=== PATIENT | female | born 1970 | race Caucasian/White ===

== ENCOUNTER 2018-12-26 15:22 | Outpatient (REF) | payer MEDICAID, SELFPAY ==
[2018-12-26 19:33] LABS: HCT 39.3 % (36.0-46.0); HGB 13.4 g/dL (12.0-15.5); Mean Corp. HGB Concentration 34.1 g/dL (32.0-36.0); Mean Corpuscular Hemoglobin 30.6 pg (27.0-33.0); Mean Corpuscular Volume 89.7 fL (80-95); Platelet Count 278 x1000/uL (130-400); RBC 4.38 m/cumm (4.00-5.20); White Blood Cell Count 11.14 k/cumm (4.4-10.8)
[2018-12-26 19:34] LABS: C-Reactive Protein 1.94 mg/dL (0.0-0.3); TSH 1.91 uIU/mL (0.36-3.74)
[2018-12-26 20:17] LABS: ESR 36 mm/hr (0-20)
[2018-12-30 13:01] LABS: Lyme Ab w Rflx to Lyme Confirm Negative
[2018-12-30 15:29] LABS: ANA Interpretation Negative (NEGAT)
== END 2018-12-26 15:42 ==
LOC: NCHCN 15:22
PROVIDERS: PCP Internal Medicine; Visit Provider Internal Medicine
DX: M79.7 Fibromyalgia (principal)
CPT/HCPCS: 85027; 85652; 84443; 86038; 86140; 86618

== ENCOUNTER 2020-02-18 17:58 | Outpatient (REF) | payer MEDICAID, SELFPAY ==
[2020-02-18 21:27] LABS: Anion Gap 6.9 mmol/L (3-11); BUN 6 mg/dL (7-18); CO2 29.1 mmol/L (21.0-32.0); CREATININE 0.64 mg/dL (0.55-1.02); Calcium 8.7 mg/dL (8.5-10.1); Chloride 103 mmol/L (98-107); Glucose 97 mg/dL (74-106); Sodium 139 mmol/L (136-145); TSH 2.36 uIU/mL (0.36-3.74)
== END 2020-02-18 18:18 ==
LOC: NCHCN 17:58
PROVIDERS: PCP Internal Medicine; Visit Provider Internal Medicine
DX: M79.7 Fibromyalgia (principal); F43.9 Reaction to severe stress, unspecified
CPT/HCPCS: 80048; 84443

== ENCOUNTER 2020-05-10 15:34 | Outpatient (REF) | payer MEDICAID, SELFPAY ==
[2020-05-12 12:26] LABS: COVID-19 RT-PCR UVMMC Result Positive (Negative)
== END 2020-05-10 15:35 | disposition home or self-care (01) ==
LOC: NCHCN 15:34
PROVIDERS: PCP Internal Medicine; Visit Provider Family Medicine
DX: Z20.822 Contact with and (suspected) exposure to COVID-19 (principal); R05 Cough; R07.89 Other chest pain
CPT/HCPCS: U0003

== ENCOUNTER 2021-02-16 18:45 | Outpatient (REF) | payer MEDICAID, SELFPAY ==
[2021-02-16 20:30] LABS: HCT 38.7 % (36.0-46.0); HGB 12.9 g/dL (11.2-15.7); MCH 30.4 pg (27.0-33.0); MCHC 33.3 % (32.0-36.0); MCV 91.3 fL (80-95); MPV 8.9 fL (8.0-11.0); Platelet Count 310 10^3/uL (130-400); RBC 4.24 10^6/uL (3.93-5.22); RDW 13.6 % (11.7-14.6); WBC 15.23 10^3/uL (4.4-10.8)
[2021-02-16 20:35] LABS: Anion Gap 7.9 mmol/L (3-11); BUN 8 mg/dL (7-18); CO2 29.1 mmol/L (21.0-32.0); CREATININE 0.6 mg/dL (0.55-1.02); Calcium 8.5 mg/dL (8.5-10.1); Chloride 101 mmol/L (98-107); Glucose 84 mg/dL (74-106); Potassium 3.7 mmol/L (3.5-5.1); Sodium 138 mmol/L (136-145)
== END 2021-02-16 18:46 | disposition home or self-care (01) ==
LOC: NCHCN 18:45
PROVIDERS: PCP Internal Medicine; Visit Provider Internal Medicine
DX: M54.9 Dorsalgia, unspecified (principal); F17.210 Nicotine dependence, cigarettes, uncomplicated
CPT/HCPCS: 80048; 85027

== ENCOUNTER 2021-04-21 16:14 | Outpatient (REF) | payer MEDICAID, SELFPAY ==
[2021-04-21 19:38] LABS: Bilirubin Negative (Negative); Blood Negative (Negative); Clarity Clear (Clear); Glucose Negative (Negative); Ketones Negative (Negative); Leukocyte Esterase Negative (Negative); Nitrite Negative (Negative); Specific Gravity 1.025 (1.005-1.025); Urobilinogen 0.2 EU/dL (Up TO 0.2)
== END 2021-04-21 16:15 | disposition home or self-care (01) ==
LOC: NCHCN 16:14
PROVIDERS: PCP Internal Medicine; Visit Provider Nurse Practitioner Family
DX: R31.9 Hematuria, unspecified (principal)
CPT/HCPCS: 81003

== ENCOUNTER 2021-06-15 18:34 | Outpatient (REF) | payer MEDICAID, SELFPAY ==
[2021-06-15 22:00] LABS: Calculated LDL 125 mg/dL (<100); Cholesterol 204 mg/dL (<200); HDL Cholesterol 60 mg/dL (40-60); Triglyceride 97 mg/dL (<150)
== END 2021-06-15 18:35 | disposition home or self-care (01) ==
LOC: NCHCN 18:34
PROVIDERS: PCP Internal Medicine; Visit Provider Internal Medicine
DX: R03.0 Elevated blood-pressure reading, without diagnosis of hypertension (principal); Z13.220 Encounter for screening for lipoid disorders; Z00.00 Encounter for general adult medical examination without abnormal findings
CPT/HCPCS: 80061

== ENCOUNTER 2021-06-25 08:18 | Emergency (ER) | payer MEDICAID, SELFPAY ==
[2021-06-25 08:25] VITALS: BP 143/92; PULSE 90; RESP 18; TEMP 36.7; O2SAT 96
--- NOTE | 2021-06-25 08:30 | DI.RAD_ITS ---
Exam(s) XR RIBS LT PA CHEST 3V EXAM: XR RIBS LT PA CHEST 3V CLINICAL HISTORY: pulled down by dog, left anteriolateral rib pain. TECHNIQUE: 2D digital imaging was performed. COMPARISON: No exams were available for comparison FINDINGS: Two views left rib cage: No left rib fracture seen. No pneumothorax. Ipsilateral left clavicle appe ars unremarkable. Chest single view: No acute pulmonary findings. No pneumothorax. IMPRESSION: No acute pulmonary findings. No obvious left rib fractures. DATA REPOSITORY: RADIATION DOSE DELIVERED:
--- NOTE | 2021-06-25 08:40 | W.EDPROG ---
Medical Decision Making 51-year-old female current smoker, otherwise healthy, was pulled down by a large dog while walking them on a leash several days ago, fell on her left side pain to her left anterior lateral chest feels as if she is taking short shallow breaths endorses the pain has gotten worse over the past days. Took hydrocodone this morning. I did again I started progress Discharge Plan Discharge Details Chief Complaint: Chest/Rib Primary Care Provider: Marcel Richardson ED Provider: Darius Freeman Home Meds and New Rx's Prescriptions: No Action hydrocodone-acetaminophen 5-325 mg Tablet 1 tab PO BID PRN0RF gabapentin 300 mg Capsule 900 mg PO TID 0RF albuterol sulfate 90 mcg/actuation Hfa Aerosol Inhaler 2 puff INHALATION QID PRN0RF
--- NOTE | 2021-06-25 08:43 | ED.GENADUL_ITS ---
Discharge Plan Disposition Patient Disposition: HOME Condition: Improving Discharge Details Clinical Impression: Contusion of rib Primary Care Provider: Marcel Richardson ED Provider: Darius Freeman Home Meds and New Rx's Prescriptions: New cyclobenzaprine 5 mg tablet 5 mg PO BID PRN (Reason: muscle spasm) Qty: 10 0RF lidocaine [Lidoderm] 5 % adhesive patch,medicated 1 patch topical DAILY Qty: 1 0RF Rx Instructions: leave on most painful area for up to 12 hrs No Action hydrocodone-acetaminophen 5-325 mg Tablet 1 tab PO BID PRN0RF gabapentin 300 mg Capsule 900 mg PO TID 0RF albuterol sulfate 90 mcg/actuation Hfa Aerosol Inhaler 2 puff INHALATION QID PRN0RF Discharge Instructions Instructions: Rib Contusion (ED) Additional Instructions: Please continue to use ibuprofen and Tylenol as needed at home. Please use incentive spirometer as instructed. Please return to the emergency department for any worsening symptoms such as shortness of breath change in color fevers worsening cough worsening pain or other abnormal symptoms. Medical Decision Making 51-year-old female presents several days after being pulled to the ground by a large dog, fell on her left chest wall, persistent pain and shallow breathing, afebrile nontoxic not hypoxic, speaking full sentences lungs clear bilaterally, faint area of ecchymosis around likely fifth/6th ribs anterior lateral chest wall of left thorax, no crepitus no deformity no evidence of flail chest, abdomen soft nontender nondistended, neurologically intact, oxygenating normally hemodynamically stable. High clinical suspicion for rib contusion versus rib fracture versus less likely pneumothorax versus less likely hemothorax versus low suspicion for developing pneumonia. Screening x-ray/rib series, analgesia, close reassessment likely to be given some incentive spirometer home care instructions and return precautions 9:35 Patient resting comfortably no acute distress no hypoxia hemodynamically stable. X-ray read as negative for pulmonary pathology or rib fracture; upon my review of the image it seems that there is more opacification of the left hemithorax than the right consider overlying breast tissue versus atelectasis versus pulmonary contusion, reviewed this with patient and offered CT scan for further delineation of any underlying pulmonary pathology. We discussed the risks and benefits of further imaging and evaluation and given patient is stable not hypoxic without respiratory distress she is decided to hold off on CT scan and will monitor her symptoms at home, continue with pain control, return precautions for fever shortness of breath change in color tachypnea worsening pain or other abnormal symptoms. HPI General Date/Time Provider Initiated Documentation: 06/25/21 08:38 . HPI Narrative: 51-year-old female current smoker otherwise healthy presents several days after being pulled down by a large dog while walking it on the leash. Fell on her left side endorses pain to her anterior lateral chest wall. Endorses that she is taking shallow breaths and the pain has gotten worse and sharp over the last couple of days. Took a hydrocodone this morning that is taken the edge off. Related Data Home Medications Medication Instructions Recorded Confirmed albuterol sulfate 90 mcg/actuation 2 puff INHALATION QID PRN 06/25/21 06/25/21 aerosol inhaler cyclobenzaprine 5 mg tablet 5 mg PO BID PRN #10 tab 06/25/21 gabapentin 300 mg capsule 900 mg PO TID 06/25/21 06/25/21 hydrocodone 5 mg-acetaminophen 325 1 tab PO BID PRN 06/25/21 06/25/21 mg tablet lidocaine 5 % topical patch 1 patch TOPICAL DAILY #1 ea 06/25/21 (Lidoderm) Previous Rx's Medication Instructions Recorded cyclobenzaprine 5 mg tablet 5 mg PO BID PRN #10 tab 06/25/21 lidocaine 5 % topical patch 1 patch TOPICAL DAILY #1 ea 06/25/21 (Lidoderm) Allergies Allergy/AdvReac Type Severity Reaction Status Date / Time No Known Allergies Allergy Unverified 06/25/21 08:21 General Stated Complaint: Chest/Rib KING: 3 Review of Systems Narrative: Review of Systems Constitutional: negative Eyes: negative ENT: negative Cardiovascular: negative Respiratory: negative Gastrointestinal: negative : negative Musculoskeletal: Chest wall pain Skin: negative Neurologic: negative Psych: negative PFSH All Active Problems (Updated 06/25/21 @ 09:37 by Darius Freeman MD) Contusion of rib (Acute) Social History Smoking/Tobacco Use Status: Current every day Tobacco Type: cigarettes Smoking risk assessment performed?: Yes Alcohol Intake: never Drug use: Never Do you feel safe at home: Yes Do you feel safe in your relationship?: Yes Exam Narrative Exam Narrative: Physical Examination General: alert, awake, cooperative, resting comfortably, no acute distress HEENT: normocephalic, atraumatic; PERRL, EOM intact, conjunctiva normal; no nasal discharge; moist mucous membranes, oral and pharyngeal mucosa normal, tolerating secretions Neck: supple, trachea midline; full ROM Chest: normal to inspection, no deformity, no crepitus, does have faint area of ecchymosis anterior lateral chest wall around area of fifth/sixth rib Respiratory: normal respiratory effort, speaking in full sentences, clear to auscultation, no wheezing, rales or rhonchi Cardiac: regular rate, regular rhythm, S1S2 intact, no murmurs rubs or gallops GI: abdomen soft, non-tender, non-distended; no palpable mass or hepatosplenomegaly Skin: no lesions, rashes or trauma appreciated Neuro: AAOx3, normal speech, moving all extremities Psych: Appropriate mood and affect Course Vital Signs Vital signs: Vital Signs Temperature 36.7 C 06/25/21 08:25 Pulse 90 06/25/21 08:25 Respiratory Rate 18 06/25/21 08:25 Blood Pressure 143/92 H 06/25/21 08:25 Pulse Oximetry 96 06/25/21 08:25 Temperature 36.7 C 06/25/21 08:25 Temperature Source Temporal Artery Scan 06/25/21 08:25 Pulse 90 06/25/21 08:25 Respiratory Rate 18 06/25/21 08:25 Respiratory Effort Non-Labored 06/25/21 08:29 Respiratory Depth Normal 06/25/21 08:29 Respiratory Pattern Normal 06/25/21 08:29 Blood Pressure 143/92 H 06/25/21 08:25 Blood Pressure Position Sitting 06/25/21 08:25 Pulse Oximetry 96 06/25/21 08:25 Oxygen Delivery Method Room Air 06/25/21 08:25 Oxygen Flow Rate 0 06/25/21 08:25 Pain Level 4 06/25/21 08:29
[2021-06-25] MEDS: Ketorolac 15 MG/ML VIAL IM (08:44)
[2021-06-25] MEDS: Lidocaine 5% Patch 1 PATCH TP (08:48)
--- NOTE | 2021-06-25 09:20 | DI.VRAD_ITS ---
PROCEDURE INFORMATION: Exam: XR Left Ribs with PA Chest Exam date and time: 06/25/2021 8:53 AM Age: 51 years old Clinical indication: Injury or trauma; Other: Pulled down by dog, left anteriolateral rib pain; Rib area, left side; Blunt trauma TECHNIQUE: Imaging protocol: XR Left ribs with PA chest. Views: 3 views COMPARISON: No relevant prior studies available. FINDINGS: Lungs: Unremarkable. No consolidation. Pleural spaces: Unremarkable. No pleural effusion. No pneumothorax. Heart/Mediastinum: Unremarkable. No cardiomegaly. Bones/joints: Unremarkable. IMPRESSION: No acute findings. Dictated and Authenticated by: Howard Cazares MD. Ordering:SUMA Mccoy MD
[2021-06-25 09:53] VITALS: PULSE 83; RESP 16; TEMP 36.5; O2SAT 96
== END 2021-06-25 09:56 | disposition home or self-care (01) ==
PROVIDERS: Emergency Provider Emergency Medicine; PCP Internal Medicine
DX: S20.212A Contusion of left front wall of thorax, initial encounter (principal); W18.39XA Other fall on same level, initial encounter
CPT/HCPCS: 71101; 96372; 99284; 99283; J1885

== ENCOUNTER 2021-06-28 10:31 | Emergency (ER) | payer MEDICAID, SELFPAY ==
[2021-06-28 10:39] VITALS: BP 119/86; PULSE 92; RESP 18; TEMP 37.3; O2SAT 96
--- NOTE | 2021-06-28 10:59 | ED.GENADUL_ITS ---
Discharge Plan Disposition Patient Disposition: HOME Condition: Stable Discharge Details Clinical Impression: Contusion of rib, Compression fracture of thoracic vertebra Primary Care Provider: Marcel Richardson ED Provider: Aida Sanz Home Meds and New Rx's Prescriptions: New gabapentin [Neurontin] 100 mg capsule 100 mg PO TID Qty: 21 0RF Continued hydrocodone-acetaminophen 5-325 mg Tablet 1 tab PO BID PRN0RF gabapentin 300 mg Capsule 900 mg PO TID 0RF albuterol sulfate 90 mcg/actuation Hfa Aerosol Inhaler 2 puff INHALATION QID PRN0RF cyclobenzaprine 5 mg tablet 5 mg PO BID PRN (Reason: muscle spasm) Qty: 10 0RF lidocaine [Lidoderm] 5 % adhesive patch,medicated 1 patch topical DAILY Qty: 1 0RF Rx Instructions: leave on most painful area for up to 12 hrs Discharge Instructions Instructions: Rib Contusion (ED) Additional Instructions: Please follow-up with your primary care physician regarding taking 2 tablets of your Vicodin as needed Continue to take deep breaths so you do not develop pneumonia You may take the Neurontin if your pain is not controlled with your Vicodin, 1 tab 3 times daily to start Recommend decreasing activity until your symptoms improve Let physical therapy know you have a fracture to your T8 vertebra Return earlier should you have new or worsening complaints Referrals: Marcel Ricahrdson [Primary Care Provider] - Discharge Data Discharge Date/Time-TO BE ENTERED AT DEPARTURE: 06/28/21 13:27 Medical Decision Making Patient appears well, her CT shows evidence of T8 fracture compression No evidence of pneumothorax or pneumonia Specifically no evidence of rib fracture As patient was not tender over her's needle today, I did not order CT of her abdomen and pelvis She is ambulatory with steady gait Returning she is reporting discomfort but in no acute distress on examination She is oxygenating well and I think the patient is stable for discharge home She is given specific return precautions will follow up her PCP in the outpatient setting She will continue to use her spirometer and take ibuprofen and Tylenol Medical Records Medical records reviewed: Yes I reviewed the patient's medical records. Lab Data Lab results reviewed: Yes I reviewed the patient's lab results. ECG Data Prior ECG tracings: available for review HPI General Date/Time Provider Initiated Documentation: 06/28/21 10:34 . HPI Narrative: This 51-year-old female presents with report of left-sided chest wall pain. Patient states that approximately 8 days ago she was training her dog when he did, she flew in the air and landed on her left side. She denies any head injury. She states this morning her pain was worse and she was short of breath. She denies any fever or chills. Denies any abdominal pain. Denies any hemoptysis. Subjective fever this morning. Denies any calf pain or swelling. Denies history of coagulopathy. Took Vicodin prior to arrival reportedly. Related Data Home Medications Medication Instructions Recorded Confirmed albuterol sulfate 90 mcg/actuation 2 puff INHALATION QID PRN 06/25/21 06/28/21 aerosol inhaler cyclobenzaprine 5 mg tablet 5 mg PO BID PRN #10 tab 06/25/21 06/28/21 gabapentin 300 mg capsule 900 mg PO TID 06/25/21 06/28/21 hydrocodone 5 mg-acetaminophen 325 1 tab PO BID PRN 06/25/21 06/28/21 mg tablet lidocaine 5 % topical patch 1 patch TOPICAL DAILY #1 ea 06/25/21 06/28/21 (Lidoderm) gabapentin 100 mg capsule 100 mg PO TID #21 cap 06/28/21 (Neurontin) Previous Rx's Medication Instructions Recorded cyclobenzaprine 5 mg tablet 5 mg PO BID PRN #10 tab 06/25/21 lidocaine 5 % topical patch 1 patch TOPICAL DAILY #1 ea 06/25/21 (Lidoderm) gabapentin 100 mg capsule 100 mg PO TID #21 cap 06/28/21 (Neurontin) Allergies Allergy/AdvReac Type Severity Reaction Status Date / Time No Known Allergies Allergy Unverified 06/28/21 10:52 General Stated Complaint: Orthopedic KING: 3 Review of Systems All systems reviewed & are unremarkable except as noted in HPI and below PFSH All Active Problems (Updated 06/28/21 @ 13:27 by KRYSTAL Young) Contusion of rib (Acute) Compression fracture of thoracic vertebra (Acute) Medical History (Updated 06/28/21 @ 13:27 by KRYSTAL Young) Arthritis Surgical History (Updated 06/28/21 @ 10:48 by Kelly Butler RN) History of section History of cholecystectomy Social History Smoking/Tobacco Use Status: Current every day Tobacco Type: cigarettes Smoking risk assessment performed?: Yes Alcohol Intake: never Drug use: Never Do you feel safe at home: Yes Do you feel safe in your relationship?: Yes Exam Const General: cooperative, comfortable and no acute distress HENMT Head: normal to inspection Eyes Pupils: PERRL Neck Other: Nontender cervical spine Chest Other: Palpable left-sided tenderness, no crepitus or visible signs of trauma Resp Effort & Inspection: normal respiratory effort Auscultation: clear to auscultation bilaterally Cardio Rate: regular rate Rhythm: regular rhythm Other: Distal pulses intact GI Inspection: normal to inspection Other: Specifically no tenderness over left upper quadrant or left flank or visible evidence of trauma Back/Spine/Pelvis Other: Midline thoracic tenderness without visible evidence of trauma Skin General skin exam: no rashes or lesions noted Neuro General: patient alert and patient oriented x3 Cranial Nerves: CN's II-XI intact bilaterally Speech: speech normal Gait: normal gait Other: Strength and sensation intact distally, distal pulses intact, DTRs intact to bilateral lower and upper extremities Extrem General: normal to inspection Course Vital Signs Vital signs: Vital Signs Temperature 37.3 C 06/28/21 10:39 Pulse 92 H 06/28/21 10:39 Respiratory Rate 18 06/28/21 10:39 Blood Pressure 119/86 06/28/21 10:39 Pulse Oximetry 96 06/28/21 10:39 Temperature 37.3 C 06/28/21 10:39 Temperature Source Temporal Artery Scan 06/28/21 10:39 Pulse 92 H 06/28/21 10:39 Respiratory Rate 18 06/28/21 10:39 Respiratory Effort Non-Labored 06/28/21 10:46 Blood Pressure 119/86 06/28/21 10:39 Blood Pressure Position Sitting 06/28/21 10:39 Pulse Oximetry 96 06/28/21 10:39 Oxygen Delivery Method Room Air 06/28/21 10:39 Oxygen Flow Rate 0 06/28/21 10:39
--- NOTE | 2021-06-28 12:22 | DI.CT_ITS ---
Exam(s) CT CHEST WO EXAM: CT CHEST WO CLINICAL HISTORY: left chest pain post trauma. TECHNIQUE: Multi planar reconstructions were performed. CONTRAST MATERIAL: None COMPARISON: CR,XR XR RIBS LT PA CHEST 3V from 06/25/2021 FINDINGS: CHEST: There are bilateral retroglandular saline breast implants. The right implant is collapsed. The left breast implant appears intact LUNGS: There are no infiltrates nor pleural effusions. No lung contusion. No pneumothorax. No omin ous pulmonary nodules. MEDIASTINUM: No evidence of mediastinal hematoma. No obvious hilar nor mediastinal adenopathy. No a xillary adenopathy. CARDIAC: Heart size is normal. There is no pericardial effusion.Caliber of the thoracic aorta is wit hin normal limits. VISUALIZED UPPER ABDOMEN:Visualized liver and spleen appear unremarkable no significant adrenal tammy s. OSSEOUS: There is compression fracture of T8 vertebral body, approximately 20 percent height loss at superior endplate level. No clavicle fractures. No rib fractures. No scapular fractures. No harp al fracture.. IMPRESSION: 1. There is a compression fracture of T8 vertebral body, approximately 20 percent. Correlation with site of tenderness is recommended. There are no rib fractures identified. No sternal fractures. No clavicular fractures. No lung contusion. No pleural effusions. No pneumothorax. 2. Right breast implant is collapsed, possibly chronic. The left breast implant appears intact. Imp lants are saline/retro glandular. RADIATION DOSE DELIVERED: 394.22mGy.cm Total DLP DATA REPOSITORY: All CT scans at this facility are submitted to the National Radiology Data Registry (NRDR) Dose Index Registry (DIR) with the [employer] ([employer]). RADIATION OPTIMIZATION: All CT scans at this facility use at least one of these dose optimization te chniques: automated exposure control; mA and/or kV adjustment per patient size (includes targeted exa ms where dose is matched to clinical indication); or iterative reconstruction.
[2021-06-28 14:17] VITALS: BP 128/86; PULSE 90; RESP 18; TEMP 36.6; O2SAT 91
== END 2021-06-28 13:27 | disposition home or self-care (01) ==
PROVIDERS: Emergency Provider Physician Assistant; PCP Internal Medicine
DX: S20.212A Contusion of left front wall of thorax, initial encounter (principal); S22.060A Wedge compression fracture of T7-T8 vertebra, initial encounter for closed fracture; W18.39XA Other fall on same level, initial encounter
CPT/HCPCS: 71250; 99284

== ENCOUNTER 2022-01-23 17:48 | Outpatient (REF) | payer MEDICAID, SELFPAY ==
[2022-01-23 20:00] LABS: HCT 37.3 % (36.0-46.0); HGB 12.1 g/dL (11.2-15.7); MCH 29.2 pg (27.0-33.0); MCHC 32.4 % (32.0-36.0); MCV 90 fL (80-95); MPV 9.5 fL (8.0-11.0); Platelet Count 319 10^3/uL (130-400); RBC 4.14 10^6/uL (3.93-5.22); RDW 12.7 % (11.7-14.6); WBC 10.88 10^3/uL (4.4-10.8)
[2022-01-23 20:05] LABS: Anion Gap 5.2 mmol/L (3-11); BUN 8 mg/dL (7-18); CO2 31.8 mmol/L (21.0-32.0); CREATININE 0.6 mg/dL (0.55-1.02); Calcium 9.2 mg/dL (8.5-10.1); Chloride 100 mmol/L (98-107); Estimated GFR 107.93 (mL/min/1.73m2); Glucose 92 mg/dL (74-106); Potassium 4.3 mmol/L (3.5-5.1); Sodium 137 mmol/L (136-145)
== END 2022-01-23 17:49 | disposition home or self-care (01) ==
LOC: NCHCN 17:48
PROVIDERS: PCP Internal Medicine; Visit Provider Internal Medicine
DX: R03.0 Elevated blood-pressure reading, without diagnosis of hypertension (principal); F17.210 Nicotine dependence, cigarettes, uncomplicated
CPT/HCPCS: 80048; 85027

== ENCOUNTER 2023-08-19 12:56 | Emergency (ER) | payer MEDICAID, SELFPAY ==
[2023-08-19 12:58] VITALS: BP 134/88; PULSE 101; RESP 12; TEMP 36.8; O2SAT 95
--- NOTE | 2023-08-19 13:15 | DI.RAD_ITS ---
Exam(s) XR THORACIC SPINE COMPLETE EXAM: XR THORACIC SPINE COMPLETE CLINICAL HISTORY: back pain post cold. TECHNIQUE: 2D digital imaging was performed. COMPARISON: CR,XR XR RIBS LT PA CHEST 3V from 06/25/[address] CHEST WO from 06/28/2021 FINDINGS: Two views. There is a nonacute appearing compression fracture of the T8 vertebral body, seen on prior images of 06/25/[address] scan of 06/28/2021. Height loss appears stable. No other fractures identified. IMPRESSION: Non recent T8 compression fracture. No acute fractures evident DATA REPOSITORY: RADIATION DOSE DELIVERED:
--- NOTE | 2023-08-19 13:15 | DI.RAD_ITS ---
Exam(s) XR RIBS RT W PA LAT CHEST EXAM: XR RIBS RT W PA LAT CHEST CLINICAL HISTORY: back and right lateral chest pain, recent cold TECHNIQUE: 2D digital imaging was performed. COMPARISON: CR,XR XR RIBS LT PA CHEST 3V from 06/25/2021 FINDINGS: RIBS 3 VIEWS-right There are no obvious acute rib fractures evident. No lytic rib lesions identified. CXR- 2 VIEWS: No lung contusion or pneumothorax. There is no pleural effusion evident. Heart size is normal and there is no significant mediastinal widening. IMPRESSION: 1. No obvious rib fractures evident. Also no significant rib lesions. 2. No ipsilateral lung nor pleural abnormality evident. No pneumothorax. DATA REPOSITORY: RADIATION DOSE DELIVERED:
--- NOTE | 2023-08-19 14:27 | DI.VRAD_ITS ---
PROCEDURE INFORMATION: Exam: XR Right Ribs Exam date and time: 08/19/2023 1:45 PM Age: 53 years old Clinical indication: Other: Coughing / pain right lower mid rib; Other: Back and right lateral rib/recent cold TECHNIQUE: Imaging protocol: Radiologic exam of the right ribs. Views: 2 views. COMPARISON: CT CHEST WO 06/28/2021 12:22 PM FINDINGS: Bones/joints: Oblique views of the right hemithorax show no evidence of rib fracture. Soft tissues: Normal. IMPRESSION: No acute findings. PROCEDURE INFORMATION: Exam: XR Chest Exam date and time: 08/19/2023 1:45 PM Age: 53 years old Clinical indication: Other: Coughing / pain right lower mid rib; Other: Back and right lateral rib/recent cold TECHNIQUE: Imaging protocol: Radiologic exam of the chest. Views: 2 views. COMPARISON: CT CHEST WO 06/28/2021 12:22 PM FINDINGS: Lungs: Lungs are mildly hyperexpanded with diaphragmatic flattening but show no infiltrate or nodule. Pleural spaces: Unremarkable. No pleural effusion. No pneumothorax. Heart/Mediastinum: Cardiomediastinal silhouette is normal. Bones/joints: Unremarkable. IMPRESSION: COPD with no acute abnormality. Dictated and Authenticated by: Jeremi Ruano MD. Ordering:ARMAND Parra MD
[2023-08-19] MEDS: Cyclobenzaprine 10 MG TAB, 3 TABS/BTL PO (14:56)
[2023-08-19] MEDS: predniSONE 20 MG TAB 40 MG PO (14:57)
--- NOTE | 2023-08-19 15:02 | DI.VRAD_ITS ---
PROCEDURE INFORMATION: Exam: XR Thoracic Spine Exam date and time: 08/19/2023 1:50 PM Age: 53 years old Clinical indication: Other: Back pain recent cold TECHNIQUE: Imaging protocol: Radiologic exam of the thoracic spine. Views: 3 views. COMPARISON: CR XR RIBS RT W PA LAT CHEST 08/19/2023 1:45 PM FINDINGS: Bones/joints: Thoracic vertebrae are normal in alignment. There is a superior endplate compression fracture of T7 which is unchanged from a previous CT scan from 06/28/2021. No acute fracture. Disc spaces are maintained. Pedicles are intact. Soft tissues: Unremarkable. IMPRESSION: Old T7 compression fracture. No acute abnormality. Dictated and Authenticated by: Jeremi Ruano MD. Ordering:ARMAND Parra MD
[2023-08-19 15:11] VITALS: BP 145/96; PULSE 92; RESP 16; O2SAT 94
--- NOTE | 2023-08-19 15:33 | ED.GENADUL_ITS ---
Discharge Plan Disposition Patient Disposition: Home Condition: Stable Discharge Details Clinical Impression: Chest wall pain Primary Care Provider: Marcel Richardson ED Provider: Aida Sanz Home Meds and New Rx's Prescriptions: New cyclobenzaprine 10 mg tablet 10 mg PO TID PRNQty: 15 0RF prednisone 20 mg tablet 40 mg PO ONCE Qty: 6 0RF Continued hydrocodone-acetaminophen 5-325 mg Tablet 1 tab PO BID PRN gabapentin 300 mg Capsule 900 mg PO TID albuterol sulfate 90 mcg/actuation Hfa Aerosol Inhaler 2 puff INHALATION QID PRN gabapentin [Neurontin] 100 mg capsule 100 mg PO TID Qty: 21 0RF tiotropium bromide [Spiriva with HandiHaler] 18 mcg capsule, w/inhalation device 1 cap INHALATION DAILY Patient Comments: INHALE 1 PUFF BY MOUTH ONCE DAILY Discharge Instructions Instructions: Chest Wall Pain (ED) Additional Instructions: Take calcium supplement and vitamin D daily Take ibuprofen 600 mg every 8 hours with food, Tylenol 650 every 4-6 hours Take the prednisone, for the next 4 days and Flexeril as needed for musculoskeletal pain, Likely make you tired do not drive for 8 hours after taking this medication or consume alcohol Please return with fever, chills, worsening shortness of breath, persistent symptoms or she develop any change in your pain Referrals: Marcel Richardson [Primary Care Provider] - 1 week HPI General Date/Time Provider Initiated Documentation: 08/19/23 13:09 . HPI Narrative: This 53-year-old female presents with back and rib pain. Patient been sick approximately 3 days ago and was placed on prednisone followed by erythromycin and feels as though her cough and congestion symptoms are improving. States the pain though has been persistent for a week and a half. She is not currently on any medications. Predominantly the pain is worsened with movement and deep breathing. Denies any recent flights, surgeries, long drives, denies any history of hemoptysis. States she is not currently experiencing any cough or shortness of breath. Denies any history of coagulopathy. Denies any chance of . Has not taken any [id number] medications for patient. Chronically prescribed pain meds which are not help Related Data Home Medications Medication Instructions Recorded Confirmed albuterol sulfate 90 mcg/actuation 2 puff inhalation QID PRN 06/25/21 08/19/23 aerosol inhaler gabapentin 300 mg capsule 900 mg PO TID 06/25/21 08/19/23 hydrocodone 5 mg-acetaminophen 325 1 tab PO BID PRN 06/25/21 08/19/23 mg tablet gabapentin 100 mg capsule 100 mg PO TID #21 caps 06/28/21 08/19/23 (Neurontin) cyclobenzaprine 10 mg tablet 10 mg PO TID PRN #15 tabs 08/19/23 prednisone 20 mg tablet 40 mg (2 x 20 mg) PO ONCE #6 tabs 08/19/23 tiotropium bromide 18 mcg capsule 1 cap inhalation DAILY 08/19/23 08/19/23 with inhalation device (Spiriva with HandiHaler) Previous Rx's Medication Instructions Recorded gabapentin 100 mg capsule 100 mg PO TID #21 caps 06/28/21 (Neurontin) cyclobenzaprine 10 mg tablet 10 mg PO TID PRN #15 tabs 08/19/23 prednisone 20 mg tablet 40 mg (2 x 20 mg) PO ONCE #6 tabs 08/19/23 Allergies Allergy/AdvReac Type Severity Reaction Status Date / Time No Known Allergies Allergy Unverified 08/19/23 13:05 General Stated Complaint: Nk/Back Pain KING: 3 Exam Narrative Exam Narrative: 53-year-old reproducible tenderness right lateral ribs and some pain paraspinally over thoracic region, alert and oriented, no acute distress, lungs clear to auscultation bilaterally, cardiac rate rhythm regular, distal pulses intact, no Kesling or tenderness, no abdominal tenderness, no rashes or lesions Course Vital Signs Vital signs: Vital Signs Temperature 36.8 C 08/19/23 12:58 Pulse 101 H 08/19/23 12:58 Respiratory Rate 12 08/19/23 12:58 Blood Pressure 134/88 08/19/23 12:58 Pulse Oximetry 95 08/19/23 12:58 Temperature 36.8 C 08/19/23 12:58 Temperature Source Temporal Artery Scan 08/19/23 12:58 Pulse 92 H 08/19/23 15:11 Respiratory Rate 16 08/19/23 15:11 Respiratory Effort Normal, Non-Labored 08/19/23 13:41 Blood Pressure 145/96 H 08/19/23 15:11 Blood Pressure Position Sitting 08/19/23 12:58 Pulse Oximetry 94 08/19/23 15:11 Oxygen Delivery Method Room Air 08/19/23 12:58 Oxygen Flow Rate 0 08/19/23 12:58 Pain Level 5 08/19/23 12:58 Comment Took two tylenol and a vicodin [id number]. 08/19/23 12:58 Medical Decision Making 53-year-old female presenting with report of right lateral chest wall pain and paraspinal thoracic pain. Patient has a chest x-ray with ribs does not show evidence of acute abnormality and thoracic spine old T7 compression fracture per radiology interpretation and my review. Patient is in no acute distress, she has some reproducible tenderness she is already on an opiate for discomfort so I will add some Flexeril which she may take sparingly and will extend her steroid for 3 days to see if it helps with her pain. There is no obvious rib fracture and compression fracture appears to be chronic in nature so she is encouraged to have this rechecked by primary care physician as needed. She is given low threshold to return should she have new or worsening complaints I did consider pulmonary embolism however she is tachycardic does not exhibit hypoxia or any sort of respiratory distress without any history of coagulopathy, my suspicion is low clinically that this is a pulmonary embolism or anything cardiac in nature as her pain is reproducible and exacerbated with movement predominantly. She will need close outpatient reassessment should she have persistent pain Quality:SDOH Health Related Social Needs: No Data to Display PFSH All Active Problems (Updated 08/19/23 @ 14:51 by KRYSTAL Young) Chest wall pain (Acute) Medical History (Updated 08/19/23 @ 14:51 by KRYSTAL Young) Arthritis Surgical History (Updated 06/28/21 @ 10:48 by Kelly Butler RN) History of section History of cholecystectomy Social History Smoking/Tobacco Use Status: Current every day Tobacco Type: cigarettes Smoking risk assessment performed?: Yes Alcohol Intake: never Drug use: Never Do you feel safe at home: Yes Do you feel safe in your relationship?: Yes
== END 2023-08-19 15:11 | disposition home or self-care (01) ==
PROVIDERS: Emergency Provider Physician Assistant; PCP Internal Medicine
DX: R07.89 Other chest pain (principal); M54.6 Pain in thoracic spine; R10.11 Right upper quadrant pain; M48.54XA Collapsed vertebra, not elsewhere classified, thoracic region, initial encounter for fracture; F17.210 Nicotine dependence, cigarettes, uncomplicated
CPT/HCPCS: 99283; 71046; 71100; 72072; J7512

== ENCOUNTER 2023-08-24 17:23 | Emergency (ER) | payer MEDICAID, SELFPAY ==
[2023-08-24 17:28] VITALS: BP 153/88; PULSE 108; RESP 14; TEMP 36.9; O2SAT 93
--- NOTE | 2023-08-24 18:00 | RT.EKG_ITS ---
APPROVED REPORT Exam: Resting ECG Reason for Exam: pleuritic chest pain Patient Location: E HR:105 bpm ECG Measurements Heart Rate 105 AXIS IN 134 P 74 QRSd 75 QRS 22 QT 327 T 39 QTc 432 Conclusion Sinus tachycardia...rate> 99 Anterior infarct, old...Q >40mS, abnormal ST-T, V2-V5 sinus tachycardia, normal axis, normal intervals
[2023-08-24] MEDS: Lidocaine 5% Patch 1 PATCH TP (18:01)
--- NOTE | 2023-08-24 18:05 | ED.GENADUL_ITS ---
Discharge Plan Disposition Patient Disposition: Home Condition: Improving Discharge Details Clinical Impression: Chest wall pain Primary Care Provider: Marcel Richardson ED Provider: Darius Freeman Home Meds and New Rx's Prescriptions: New lidocaine [Lidoderm] 5 % adhesive patch,medicated 1 patch topical DAILY PRNQty: 15 0RF Rx Instructions: leave on most painful area for up to 12 hrs No Action hydrocodone-acetaminophen 5-325 mg Tablet 1 tab PO BID PRN gabapentin 300 mg Capsule 900 mg PO TID albuterol sulfate 90 mcg/actuation Hfa Aerosol Inhaler 2 puff INHALATION QID PRN gabapentin [Neurontin] 100 mg capsule 100 mg PO TID Qty: 21 0RF tiotropium bromide [Spiriva with HandiHaler] 18 mcg capsule, w/inhalation device 1 cap INHALATION DAILY Patient Comments: INHALE 1 PUFF BY MOUTH ONCE DAILY cyclobenzaprine 10 mg tablet 10 mg PO TID PRNQty: 15 0RF prednisone 20 mg tablet 40 mg PO ONCE Qty: 6 0RF Discharge Instructions Instructions: Chest pain Additional Instructions: Please help with your primary care physician. Return to the emergency room for any worsening symptoms HPI General Date/Time Provider Initiated Documentation: 08/24/23 17:28 . HPI Narrative: 53-year-old female presents with right thoracic discomfort worse with deep breath over the past couple of weeks, did have a cough that self resolved recent ED visit with negative chest x-ray not improved after muscle relaxant and steroid. Related Data Home Medications Medication Instructions Recorded Confirmed albuterol sulfate 90 mcg/actuation 2 puff inhalation QID PRN 06/25/21 08/19/23 aerosol inhaler gabapentin 300 mg capsule 900 mg PO TID 06/25/21 08/19/23 hydrocodone 5 mg-acetaminophen 325 1 tab PO BID PRN 06/25/21 08/19/23 mg tablet gabapentin 100 mg capsule 100 mg PO TID #21 caps 06/28/21 08/19/23 (Neurontin) cyclobenzaprine 10 mg tablet 10 mg PO TID PRN #15 tabs 08/19/23 prednisone 20 mg tablet 40 mg (2 x 20 mg) PO ONCE #6 tabs 08/19/23 tiotropium bromide 18 mcg capsule 1 cap inhalation DAILY 08/19/23 08/19/23 with inhalation device (Spiriva with HandiHaler) lidocaine 5 % topical patch 1 patch topical DAILY PRN #15 ea 08/24/23 (Lidoderm) Previous Rx's Medication Instructions Recorded gabapentin 100 mg capsule 100 mg PO TID #21 caps 06/28/21 (Neurontin) cyclobenzaprine 10 mg tablet 10 mg PO TID PRN #15 tabs 08/19/23 prednisone 20 mg tablet 40 mg (2 x 20 mg) PO ONCE #6 tabs 08/19/23 lidocaine 5 % topical patch 1 patch topical DAILY PRN #15 ea 08/24/23 (Lidoderm) Allergies Allergy/AdvReac Type Severity Reaction Status Date / Time No Known Allergies Allergy Unverified 08/24/23 17:33 General Stated Complaint: Nk/Back Pain KING: 3 Review of Systems Narrative: Review of Systems Constitutional: negative Eyes: negative ENT: negative Cardiovascular: negative Respiratory: Pleuritic right chest pain Gastrointestinal: negative : negative Musculoskeletal: negative Skin: negative Neurologic: negative Psych: negative Exam Narrative Exam Narrative: Physical Examination General: alert, awake, cooperative, resting comfortably, no acute distress HEENT: normocephalic, atraumatic; PERRL, EOM intact, conjunctiva normal; no nasal discharge; moist mucous membranes, oral and pharyngeal mucosa normal, tolerating secretions Neck: supple, trachea midline; full ROM Chest: normal to inspection Respiratory: normal respiratory effort, speaking in full sentences, clear to auscultation, no wheezing, rales or rhonchi Cardiac: regular rate, regular rhythm, S1S2 intact, no murmurs rubs or gallops GI: abdomen soft, non-tender, non-distended; no palpable mass or hepatosplenomegaly Back: No midline spinal tenderness or paraspinal tenderness no chest wall crepitus or deformity Skin: no lesions, rashes or trauma appreciated Neuro: AAOx3, normal speech, moving all extremities Psych: Appropriate mood and affect Course Vital Signs Vital signs: Vital Signs Temperature 36.9 C 08/24/23 17:28 Pulse 108 H 08/24/23 17:28 Respiratory Rate 14 08/24/23 17:28 Blood Pressure 153/88 H 08/24/23 17:28 Pulse Oximetry 93 08/24/23 17:28 Temperature 36.9 C 08/24/23 17:28 Temperature Source Oral 08/24/23 17:28 Pulse 108 H 08/24/23 17:28 Respiratory Rate 14 08/24/23 17:28 Respiratory Effort Normal 08/24/23 18:01 Blood Pressure 153/88 H 08/24/23 17:28 Blood Pressure Position Sitting 08/24/23 17:28 Pulse Oximetry 93 08/24/23 17:28 Oxygen Delivery Method Room Air 08/24/23 17:28 Oxygen Flow Rate 0 08/24/23 17:28 Pain Level 5 08/24/23 17:28 Medical Decision Making 53-year-old female presents with 3 weeks of right-sided pleuritic chest discomfort posterior lateral thoracic wall on the right, had a self resolving cough a couple weeks ago, negative chest x-ray no improvement after muscle relaxant and steroid. Hemodynamically stable afebrile nontoxic, slightly tachycardic on arrival, no thromboembolic risk factors or history however given pleuritic nature and no resolution after musculoskeletal therapy was considered PE lower suspicion for ACS or aortic pathology muscles consider pneumothorax versus pneumonia versus pleurisy versus costochondritis. Will obtain labs CT chest, analgesia anti-inflammatory close reassessment 20: 50 patient resting notably no acute distress. Labs and imaging unremarkable. Quality:SDOH Health Related Social Needs: No Data to Display PFSH All Active Problems (Updated 08/24/23 @ 20:52 by Darius Freeman MD) Chest wall pain (Acute) Chest wall pain (Acute) Medical History (Updated 08/24/23 @ 20:52 by Darius Freeman MD) Arthritis Surgical History (Updated 06/28/21 @ 10:48 by Kelly Butler RN) History of section History of cholecystectomy Social History Smoking/Tobacco Use Status: Current every day Tobacco Type: cigarettes Smoking risk assessment performed?: Yes Alcohol Intake: never Drug use: Never Do you feel safe at home: Yes Do you feel safe in your relationship?: Yes
[2023-08-24 18:06] LABS: Abs Immature Grans 0.08 10^3/uL (0.0-0.06); Absolute Lymphocyte Count 5.54 10^3/uL (1.2-3.4); Absolute Monocyte Count 0.89 10^3/uL (0.1-0.8); Basophils % 0.2 %; Eosinophils % 0.7 %; HCT 41.8 % (36.0-46.0); HGB 14.3 g/dL (11.2-15.7); Immature Grans % 0.5 %; Lymphocytes % 31.6 %; MCH 29.7 pg (27.0-33.0); MCHC 34.2 % (32.0-36.0); MCV 87 fL (80-95); MPV 8.7 fL (8.0-11.0); Monocytes % 5.1 %; Neutrophils % 61.9 %; Platelet Count 366 10^3/uL (130-400); RBC 4.81 10^6/uL (3.93-5.22); RDW 14.2 % (11.7-14.6); RDW-SD 45.4 fL; WBC 17.52 10^3/uL (4.4-10.8)
[2023-08-24 18:08] LABS: Absolute Basophil Count 0.04 10^3/uL (0.0-0.2); Absolute Eosinophil Count 0.12 10^3/uL (0.0-0.7); Absolute Neutrophil Count 10.84 10^3/uL (1.2-6.7)
[2023-08-24 18:18] LABS: Diff Comment Diff Reviewed; RBC Morphology Normal
[2023-08-24 18:20] LABS: PTT Activated 25.4 sec (23.6-32.8)
[2023-08-24 18:33] LABS: ALT 19 U/L (14-59); AST 9 U/L (15-37); Albumin 3.5 g/dL (3.4-5.0); Alkaline Phosphatase 89 U/L (46-116); Anion Gap 8.7 mmol/L (3-11); BUN 8 mg/dL (7-18); Bilirubin, Total 0.3 mg/dL (0.2-1.0); CO2 33.3 mmol/L (21.0-32.0); CREATININE 0.7 mg/dL (0.55-1.02); Calcium 9.4 mg/dL (8.5-10.1); Chloride 98 mmol/L (98-107); Estimated GFR 102.71 (mL/min/1.73m2); Glucose 103 mg/dL (74-106); NT-proBNP 73 pg/mL (<300); Potassium 3.5 mmol/L (3.5-5.1); Sodium 140 mmol/L (136-145); Total Protein 7.3 g/dL (6.4-8.2); Troponin I < 50 ng/L (< or =60)
[2023-08-24] MEDS: Omnipaque 350 MG/ML 100 ML BTL IJ (18:38)
[2023-08-24] MEDS: Normal Saline - Diluent 50 ML VIAL IJ (18:39)
--- NOTE | 2023-08-24 18:42 | DI.CT_ITS ---
Exam(s) CT CHEST PE CTA EXAM: CT CHEST PE CTA CLINICAL HISTORY: R posterior lateral chest pain, pleuritic. TECHNIQUE: Imaging Protocol: CT angiography of the chest was performed using pulmonary embolus joel col. Multi planar reconstructions were performed. CONTRAST MATERIAL: Intravenous: Omnipaque 350 Contrast volume: 100 cc COMPARISON: CT CT CHEST WO from 06/28/2021 CR,XR XR THORACIC SPINE COMPLETE from 08/19/2023 FINDINGS: CHEST: PULMONARY ARTERIES: There are no intraluminal filling defects to suggest acute pulmonary emboli. LUNGS: Bilateral emphysematous changes but no acute infiltrates nor pleural effusions nor ominous pul monary nodules.. MEDIASTINUM: There is no hilar nor mediastinal adenopathy. Visualized thyroid unremarkable. CARDIAC: Heart size normal. No pericardial effusion. Diameter of the ascending thoracic aorta is no rmal and there is no evidence of aortic dissection. There is no significant shift of the intervent ricular septum. PARTIALLY VISUALIZED UPPERMOST ABDOMEN: No significant adrenal masses. No splenomegaly. OSSEOUS: Compression fracture of T5 and superior endplate T8 noted. T8 fracture was previously prese nt on CT scan of 06/28/2021. However, the T5 compression fracture was not previously evident.. OTHER: There is an intact left breast saline implant. There is a chronically collapsed right breast saline implant. IMPRESSION: 1. No evidence of acute pulmonary emboli. No evidence of pulmonary infarction.No pleural effusions. 2. No evidence of aortic dissection cardial effusion 3. There is a 20 percent T5 compression fracture which was not evident on the prior CT scan of 2021 and may be responsible for this patient's posterior chest pain, given that there are no other ac [place] findings evident. There is also a chronic unchanged 20 percent compression fracture of T8. This was evident on the prior CT scan of June 2021. First read by [facility]. Final report called by myself to ER physician 08/24/2023 8:58 p.m. RADIATION DOSE DELIVERED: Total DLP DATA REPOSITORY: All CT scans at this facility are submitted to the National Radiology Data Registry (NRDR) Dose Index Registry (DIR) with the [employer] (ACR). RADIATION OPTIMIZATION: All CT scans at this facility use at least one of these dose optimization te chniques: automated exposure control; mA and/or kV adjustment per patient size (includes targeted exa ms where dose is matched to clinical indication); or iterative reconstruction.
[2023-08-24] MEDS: Ketorolac 15 MG/ML VIAL IVP (18:53)
--- NOTE | 2023-08-24 19:32 | DI.VRAD_ITS ---
PROCEDURE INFORMATION: Exam: CTA Chest With Contrast Exam date and time: 08/24/2023 6:37 PM Age: 53 years old Clinical indication: Other: R posterior lateral chest pain, pleuritic TECHNIQUE: Imaging protocol: Computed tomographic angiography of the chest with contrast. Exam focused on the arteries. 3D rendering (Not supervised by radiologist): MIP and/or 3D reconstructed images were created by the technologist. Contrast material: OMNIPAQUE; Contrast volume: 100 ml; Contrast route: INTRAVENOUS (IV); COMPARISON: CT CHEST WO 06/28/2021 12:22 PM FINDINGS: Pulmonary arteries: Pulmonary arterial opacification is of very good technical quality. No embolism. Aorta: Thoracic aorta is unremarkable in course and caliber. Lungs: Moderate to severe emphysematous lung change. No acute infiltrates or edema. Pleural spaces: No pleural effusion. Heart: Normal heart size. No pericardial effusion. No coronary artery atherosclerotic calcium. Lymph nodes: Unremarkable. No enlarged lymph nodes. Bones/joints: Degenerative thoracic spine. Old mild compression fractures of T8 and T5. Soft tissues: Chest wall soft tissues without acute change. There is a collapsed right breast implant. Left breast implant is unremarkable in appearance. IMPRESSION: 1. No pulmonary arterial embolism. 2. Emphysema. 3. No acute pleural change. 4. Thoracic aorta is normal in course and caliber. 5. No acute skeletal change. 6. Collapsed right breast implant. This is a chronic process and was present in 2021. Dictated and Authenticated by: Haim Butcher MD. Ordering:SUMA Mccoy MD
[2023-08-24 21:11] VITALS: PULSE 92; RESP 18; O2SAT 98
--- NOTE | 2023-08-24 23:40 | NUR.NOTE ---
Referral to Care Management to refer patient to [facility] for f/u of compression fxs in 1-2 weeks if possible.Nursing Note:
== END 2023-08-24 21:06 | disposition home or self-care (01) ==
PROVIDERS: Emergency Provider Emergency Medicine; PCP Internal Medicine
DX: M54.6 Pain in thoracic spine (principal); R07.89 Other chest pain; M48.54XA Collapsed vertebra, not elsewhere classified, thoracic region, initial encounter for fracture; M48.54XD Collapsed vertebra, not elsewhere classified, thoracic region, subsequent encounter for fracture with routine healing; R00.1 Bradycardia, unspecified; F17.210 Nicotine dependence, cigarettes, uncomplicated; Z98.82 Breast implant status
CPT/HCPCS: 71275; 80053; 93005; 99285; 83880; 84484; 85025; 85610; 85730; 93010; 99284; J1885; J3490

== ENCOUNTER 2023-08-30 16:17 | Outpatient (REF) | payer MEDICAID, SELFPAY ==
[2023-08-30 19:49] LABS: Anion Gap 5.6 mmol/L (3-11); BUN 8 mg/dL (7-18); CO2 34.4 mmol/L (21.0-32.0); CREATININE 0.9 mg/dL (0.55-1.02); Calcium 9.6 mg/dL (8.5-10.1); Chloride 99 mmol/L (98-107); Estimated GFR 75.97 (mL/min/1.73m2); Glucose 89 mg/dL (74-106); Potassium 4.2 mmol/L (3.5-5.1); Sodium 139 mmol/L (136-145); Vitamin D 25 Total 13.8 ng/mL (30-100)
[2023-08-31 18:51] LABS: Parathyroid Hormone,Intact 26 pg/mL (19-88)
== END 2023-08-30 16:18 | disposition home or self-care (01) ==
LOC: NCHCN 16:17
PROVIDERS: PCP Internal Medicine; Visit Provider Internal Medicine
DX: M81.0 Age-related osteoporosis without current pathological fracture (principal)
CPT/HCPCS: 80048; 82306; 83970

== ENCOUNTER 2024-03-27 12:23 | Inpatient (IN) | payer MEDICAID, SELFPAY ==
[2024-03-27] VITALS (38 sets, daily range): BP systolic 100–151; BP diastolic 45–84; PULSE 90–113; RESP 9–29; TEMP 36.7–37.7; O2SAT 74–97
--- NOTE | 2024-03-27 12:15 | RT.EKG_ITS ---
APPROVED REPORT Exam: Resting ECG Reason for Exam: hypoxic Patient Location: E HR:104 bpm ECG Measurements Heart Rate 104 AXIS GA 130 P 78 QRSd 78 QRS 63 QT 345 T 70 QTc 455 Conclusion Sinus tachycardia...rate> 99
--- NOTE | 2024-03-27 12:32 | ED.GENADUL_ITS ---
Discharge Plan Disposition Patient Disposition: Admit to [facility] Condition: Improving Discharge Details Clinical Impression: Acute exacerbation of chronic obstructive pulmonary disease Admit Date/Time: 03/27/24 14:57 Admit Provider: Abbe Monge Attending Provider: Abbe Monge Primary Care Provider: Marcel Richardson ED Provider: Glen Peralta Discharge Data Discharge Date/Time-TO BE ENTERED AT DEPARTURE: 03/27/24 15:43 Discharge Physician: Glen Peralta HPI General Date/Time Provider Initiated Documentation: 03/27/24 12:31 . HPI Narrative: Patient presents emergency department complaining of increased shortness of breath for the last 3 days worsening. Went to the urgent care center who sent her here to the emergency department because her O2 sat was low this was she had some cough which was dry the patient does smoke a pack and a half a day and is smoked for almost 40 years. Although she has an albuterol inhaler at home she h as never been diagnosed with COPD denies any chest pain denies any fever denies any chills Related Data Home Medications ?Medication ?Instructions ?Recorded ?Confirmed albuterol sulfate 90 mcg/actuation 2 puff inhalation QID PRN 06/25/21 03/27/24 aerosol inhaler gabapentin 300 mg capsule 900 mg PO TID 06/25/21 03/27/24 hydrocodone 5 mg-acetaminophen 325 1 tab PO BID PRN 06/25/21 03/27/24 mg tablet gabapentin 100 mg capsule 100 mg PO TID #21 caps 06/28/21 03/27/24 (Neurontin) cyclobenzaprine 10 mg tablet 10 mg PO TID PRN #15 tabs 08/19/23 03/27/24 prednisone 20 mg tablet 40 mg (2 x 20 mg) PO ONCE #6 tabs 08/19/23 03/27/24 tiotropium bromide 18 mcg capsule 1 cap inhalation DAILY 08/19/23 03/27/24 with inhalation device (Spiriva with HandiHaler) lidocaine 5 % topical patch 1 patch topical DAILY PRN #15 ea 08/24/23 03/27/24 (Lidoderm) Previous Rx's ?Medication ?Instructions ?Recorded gabapentin 100 mg capsule 100 mg PO TID #21 caps 06/28/21 (Neurontin) cyclobenzaprine 10 mg tablet 10 mg PO TID PRN #15 tabs 08/19/23 prednisone 20 mg tablet 40 mg (2 x 20 mg) PO ONCE #6 tabs 08/19/23 lidocaine 5 % topical patch 1 patch topical DAILY PRN #15 ea 08/24/23 (Lidoderm) Allergies Allergy/AdvReac Type Severity Reaction Status Date / Time No Known Allergies Allergy Unverified 08/24/23 17:33 General KING: 3 Review of Systems Narrative: Review of Systems: Constitutional: No fevers, chills, sweats Eye: No recent visual problems ENT: No ear pain, nasal congestion, sore throat Cardiovascular: No Chest pain, palpitations, syncope Gastrointestinal: No nausea, vomiting, diarrhea Genitourinary: No hematuria Shun/Lymph: Negative for bruising tendency, swollen lymph glands Endocrine: Negative for excessive thirst, excessive hunger Musculoskeletal: No back pain, neck pain, joint pain, muscle pain, decreased range of motion Integumentary: No rash, pruritus, abrasions Neurologic: Alert & oriented X 4 Psychiatric: No anxiety, depression Exam Narrative Exam Narrative: Exam; vitals signs as reported above normal Constitutional; In no acute distress, afebrile General: cooperative, healthy appearing, comfortable and no acute distress HEENT: Head: normal to inspection, no palpable skull fracture and normocephalic atraumatic Eyes: : appearance normal, both eyes and all related structures EOM intact bilaterally Pupils: PERRL : conjunctiva normal Direct ophthalmoscopy: normal light reflex, normal conjunctiva, normal visual acuity Ears: Normal TM, normal external canal Nose: normal no rhinorreha Neck no JVD, supple non tender Neck: normal visual inspection, full ROM and no lymphadenopathy Chest: normal inspection of the chest Respiratory : Severely decreased breath sounds in both lung major with very scant wheezing Cardio Rate: regular rate, rhythm: regular rhythm normal heart sounds S1 and S2 no murmurs, gallops, or rubs GI : normal to inspection, normal bowel sounds, soft, non tender, non distended, no organomegaly Back/Spine/ no CVA tenderness Thoracic/Lumbar Spine: no tenderness or deformities Skin no rashes or lesions Neuro: patient alert oriented x 4 and no meningeal signs, Cranial Nerves: CN's II-XI intact bilaterally, Cognition: normal cognition, Speech: speech normal, Gait: normal gait, Depp tendon reflexes normal 2+ muscle strength 5/5 bilaterally Extremities, no edema, full range of motion, normal strength Medical Decision Making MDM: Summary: Patient presented to the emergency department short of breath with absent breath sounds with a low oxygenation with O2 sat of 6% on room air which improved with oxygen. She received multiple DuoNebs and Solu-Medrol with improvement will need to be admitted to the hospital for COPD exacerbation. Data Review Analysis All the data on this patient was reviewed by me including laboratory and imaging studies as well as bedside studies performed by me Independent review of Studies Imaging X-ray shows hyperinflated lung major with no infiltrate Lab: Labs are unremarkable Risk Stratification: Patient with COPD exacerbation will need to be admitted to hospital for continued steroids and treatments Differential Diagnosis: 1. COPD exacerbation 2. Pneumonia 3. COVID-19 4. 5. Consultants: consulted with the hospitalist who agrees to admit the patient Shared disposition: Patient and and understand that he needs to be admitted and agrees Impression: Medical Records Medical records reviewed: Yes I reviewed the patient's medical records. Lab Data Lab results reviewed: Yes I reviewed the patient's lab results. ECG Data Attestation: I personally reviewed and interpreted this ECG (s) as follows: Prior ECG tracings: available for review Quality:SDOH Health Related Social Needs: No Data to Display PFSH All Active Problems Hypomagnesemia (Acute) Influenza A (Acute) Discharge planning issues (Acute) On deep vein thrombosis (DVT) prophylaxis (Acute) Nicotine dependence (Acute) Acute exacerbation of chronic obstructive pulmonary disease (Acute) Medical History Arthritis Surgical History History of section History of cholecystectomy Social History Smoking/Tobacco Use Status: Current every day Tobacco Type: cigarettes Smoking packs per day: 1.5 Smoking cigarettes per day: 30.0 Years smoked: 30 Smoking pack-years: 45.00 Tobacco: How many years used: 30 Smoking risk assessment performed?: Yes Alcohol Intake: never Drug use: Never Housing: house Do you feel safe at home: Yes Do you feel safe in your relationship?: Yes
--- NOTE | 2024-03-27 12:45 | DI.RAD_ITS ---
Exam(s) XR PORTABLE CHEST AP EXAM: XR PORTABLE CHEST AP CLINICAL HISTORY: sob TECHNIQUE: 2D digital imaging was performed. COMPARISON: CR,XR XR RIBS RT W PA LAT CHEST from 08/19/[address] CHEST PE CTA from 08/24/2023 FINDINGS: LUNGS: Hyperinflation. No focal infiltrate. No pleural abnormality seen. HEART: Normal size. AORTA: Normal diameter. BONES: Unremarkable for age. Soft tissues: Unremarkable. IMPRESSION: No acute abnormality. DATA REPOSITORY: RADIATION DOSE DELIVERED:
[2024-03-27] MEDS: Albuterol/Ipratropium 3 ML UPD VIAL (12:51)
--- NOTE | 2024-03-27 13:00 | RESPIRATORY ---
RT Initial Evalutation/Assessment Start: 03/27/24 12:53 Freq: .Q SHIFT AND PRN Status: Active Protocol: Document 03/27/24 12:53 (Rec: 03/27/24 13:00 [id number]) RT Assessment Smoking History Smoking/Tobacco Use Status Current every day Tobacco: How many years used 30 Tobacco Type cigarettes Packs per Day 2 Cigarettes per Day 30 Years smoked 30 Smoking packs per day 1.5 OXYGEN HISTORY: Supplemental O2 At Rest 0 With Exertion 0 CPAP Can use home machine N/A BIPAP Can you home machine N/A Trilogy/AVAPS Can use home machine N/A DME/Compliance DME N/A Compliance N/A Current Respiratory Symptoms Current Respiratory Symptoms Cough,Other Activity Activity Level Normally very active with 2 jobs and 2 teenagers and pets. Respiratory Breath Sounds Breath Sounds Any abnormal sounds, decreased breath sounds Pulse Rate >100 Respiratory Rate 18-25 Shortness of Breath At rest Respiratory Therapy Score Total 5 Assessment and Plan RT Treatment Protocol Bronchodilator Aerosol Therapy Protocol,Lung Expansion Therapy Protocol,Bronchial Hygiene Therapy Protocol Note Pt has no formal diagnosis of pulmonary disease. Pt has extensive smoking history and very diminished lung sounds throughout. RT administered Duoneb nebulizer treatment. Pt tolerated well and is familiar with what nebulizers are. Pt states she has home prescription for Ventolin inhaler for SOB. No home O2 at baseline, currently resting on 2L OxyMask with SpO2 93%.
[2024-03-27] MEDS: methylPREDNISolone SUCC 125 MG VIAL IVP (13:12)
[2024-03-27 13:17] LABS: Abs Immature Grans 0.04 10^3/uL (0.0-0.06); Absolute Basophil Count 0.01 10^3/uL (0.0-0.2); Absolute Eosinophil Count 0.01 10^3/uL (0.0-0.7); Absolute Lymphocyte Count 0.53 10^3/uL (1.2-3.4); Absolute Monocyte Count 0.22 10^3/uL (0.1-0.8); Basophils % 0.1 %; Eosinophils % 0.1 %; HCT 40.3 % (36.0-46.0); HGB 13.4 g/dL (11.2-15.7); Immature Grans % 0.5 %; Lymphocytes % 6.4 %; MCH 29.3 pg (27.0-33.0); MCHC 33.3 % (32.0-36.0); MCV 88 fL (80-95); MPV 9.5 fL (8.0-11.0); Monocytes % 2.6 %; Neutrophils % 90.3 %; Platelet Count 229 10^3/uL (130-400); RBC 4.57 10^6/uL (3.93-5.22); RDW 13.8 % (11.7-14.6); RDW-SD 44.3 fL; WBC 8.31 10^3/uL (4.4-10.8)
[2024-03-27 13:33] LABS: ALT 25 U/L (14-59); AST 20 U/L (15-37); Albumin 3.2 g/dL (3.4-5.0); Alkaline Phosphatase 78 U/L (46-116); BUN 21 mg/dL (7-18); Bilirubin, Total 0.22 mg/dL (0.2-1.0); Calcium 8.7 mg/dL (8.5-10.1); Chloride 96 mmol/L (98-107); Estimated GFR 66.95 (mL/min/1.73m2); Glucose 132 mg/dL (74-106); Magnesium 1.4 mg/dL (1.8-2.4); Potassium 3.7 mmol/L (3.5-5.1); Sodium 134 mmol/L (136-145); Total Protein 7.4 g/dL (6.4-8.2); Troponin I 5 ng/L (<or=51)
[2024-03-27 14:14] LABS: Troponin I < 4 ng/L (<or=51)
--- NOTE | 2024-03-27 14:27 | HPE_ITS ---
Date of service: 03/27/24 Time of Service: 14:27 Assessment and Plan Assessment and plan (1) Acute exacerbation of chronic obstructive pulmonary disease: Status: Acute Assessment and plan: [id number] history of smoking without official COPD diagnostic testing results Presented with increased cough -nonproductive as per ED Methylprednisolone IV givenin ED - transition to oral prednisone in AM productive of yellow colored sputum and increased cough-COPD exacerbation - Will add doxycycline CBC in AM (2) Nicotine dependence: Status: Acute Assessment and plan: PRN nicotine patch (3) On deep vein thrombosis (DVT) prophylaxis: Status: Acute Assessment and plan: On LMWH (4) Influenza A: Status: Acute Assessment and plan: On Tamiflu - renal dosing as per pharmacy consult (5) Hypomagnesemia: Status: Acute Assessment and plan: Supplementation ordered BMP in AM (6) Discharge planning issues: Status: Acute Assessment and plan: Discharge home when medically cleared Discussed with Dr. Monge History of Present Illness History of Present Illness Chief Complaint: SOB Narrative: This 53 year-old female patient with a past medical history of nicotine dependance of 60 pack-year, bronchitis w/o formal COPD diagnosis presented to emergency department for evaluation of of increased shortness of breath for the last 3 days The patient went to the urgent care center and was referred to [facility] ED d/t her saturation in the 60's on RA with NRB initiation. On arrival to the ED the patient was tachycardic, hypoxic but afebrile. The patient has an albuterol inhaler at home she has never been diagnosed with COPD denies any chest pain denies any fever denies any chills. Workup in the ED showed no leukocytosis, mag was 1.4 and labs were otherwise unremarkable.Chest XR showed cephalization and hyperinflation w/o acute abnormalitlies.The patient continued to receive continuous nebs and oxygen in the ED. The hospitalist team was consulted and admitted the patient for COPD exacerbation and ask for an upper respiratory viral panel to be completed. The patient was positive for influenza A. The patient confirmed full code status. The patient denies, fevers, change in vision, chest pain, gastrointestinal and genitourinary symptoms.The patient reported improved SOB but still experiencing chest tightness when moving. Review of Systems All systems reviewed & are unremarkable except as noted in HPI and below PFSH All Active Problems (Updated 03/27/24 @ 19:13 by Mague Ledbetter APRN) Hypomagnesemia (Acute) Influenza A (Acute) Discharge planning issues (Acute) On deep vein thrombosis (DVT) prophylaxis (Acute) Nicotine dependence (Acute) Acute exacerbation of chronic obstructive pulmonary disease (Acute) Medical History Arthritis Surgical History History of section History of cholecystectomy Social History Smoking/Tobacco Use Status: Current every day Tobacco Type: cigarettes Smoking packs per day: 1.5 Smoking cigarettes per day: 30.0 Years smoked: 30 Smoking pack-years: 45.00 Tobacco: How many years used: 30 Smoking risk assessment performed?: Yes Alcohol Intake: never Drug use: Never Housing: house Do you feel safe at home: Yes Do you feel safe in your relationship?: Yes Meds Allergies and Home Medications Allergies Allergy/AdvReac Type Severity Reaction Status Date / Time No Known Allergies Allergy Unverified 08/24/23 17:33 Home Medications ?Medication ?Instructions ?Recorded ?Confirmed ?Type albuterol sulfate 90 mcg/actuation 2 puff inhalation QID PRN 06/25/21 03/27/24 History aerosol inhaler gabapentin 300 mg capsule 900 mg PO TID 06/25/21 03/27/24 History hydrocodone 5 mg-acetaminophen 325 1 tab PO BID PRN 06/25/21 03/27/24 History mg tablet gabapentin 100 mg capsule 100 mg PO TID #21 caps 06/28/21 03/27/24 Rx (Neurontin) cyclobenzaprine 10 mg tablet 10 mg PO TID PRN #15 tabs 08/19/23 03/27/24 Rx prednisone 20 mg tablet 40 mg (2 x 20 mg) PO ONCE #6 tabs 08/19/23 03/27/24 Rx tiotropium bromide 18 mcg capsule 1 cap inhalation DAILY 08/19/23 03/27/24 History with inhalation device (Spiriva with HandiHaler) lidocaine 5 % topical patch 1 patch topical DAILY PRN #15 ea 08/24/23 03/27/24 Rx (Lidoderm) Exam Narrative Exam Narrative: Constitutional The patient is lying in bed comfortable HENMT: Facial structures with normal appearance Neuro:alert and oriented X 4; non-focal A Chest:Chest is symmetrical and normal appearance Resp:Shallow respiratory pattern, speaks in short sentences, labored breathing w movement , scattered ronchi, w/o exp wheezing, decreased lower lobes Cardio: regular rhythm, S1, S2, no murmur, bilateral radial and dorsalis pedis pulses are positive, palpable GI: Abdomen is not distended, soft and non tender, bowel sounds are present : Negative Costovertebral angle tenderness Back/spine/Pelvis: No back tenderness, normal alignment Integumentary: No skin lesions or rash Extremities: strength 5/5 to bilateral lower and upper extremities Psych: RASS 0, congruent mood and normal affect. Results Labs 03/27/24 12:40 03/27/24 12:40 Labs: Laboratory Results - last 24 hr 03/27/24 03/27/24 12:40 13:45 WBC 8.31 RBC 4.57 Hgb 13.4 Hct 40.3 MCV 88 MCH 29.3 MCHC 33.3 RDW 13.8 Plt Count 229 MPV 9.5 Immature Gran % 0.5 Neutrophils % 90.3 Lymphocytes % 6.4 Monocytes % 2.6 Eosinophils % 0.1 Basophils % 0.1 Nucleated RBC % 0.0 Absolute Neutrophils 7.50 H Absolute Lymphocytes 0.53 L Absolute Monocytes 0.22 Absolute Eosinophils 0.01 Absolute Basophils 0.01 Sodium 134 L Potassium 3.7 Chloride 96 L Carbon Dioxide 32.0 Anion Gap 6.0 BUN 21 H Creatinine 1.0 Est GFR (CKD-EPI 2020) 66.95 Glucose 132 H Calcium 8.7 Magnesium 1.4 L Total Bilirubin 0.22 AST 20 ALT 25 Alkaline Phosphatase 78 Troponin I 5 < 4 Total Protein 7.4 Albumin 3.2 L Last Vital Signs Temp 37.1 C 03/27/24 12:31 Pulse 102 H 03/27/24 14:16 Resp 18 03/27/24 14:16 BP 130/73 03/27/24 14:16 Pulse Ox 89 L 03/27/24 14:16 Time Spent Time spent with Patient: >75 minutes Time was spent: preparing to see the patient(eg.review tests), obtaining and/or reviewing separately otained hiistory, ordering medications,tests, procedures, referring, communicating with other health director long term care, indepentently interpreting results, counseling the patient and care coordination
[2024-03-27] MEDS: Albuterol/Ipratropium 3 ML UPD VIAL UPD ×3 (14:40→21:31)
[2024-03-27] MEDS: Nicotine 21 MG/24 HR PATCH TD (15:16)
[2024-03-27] MEDS: Ibuprofen 400 MG TAB PO (15:16)
[2024-03-27 15:25] LABS: COVID-19 PCR Negative (Negative); Influenza A PCR Positive (Negative); Influenza B PCR Negative (Negative); RSV PCR Negative (Negative)
[2024-03-27 15:26] LABS: Source Nasopharynx
--- NOTE | 2024-03-27 15:28 | W.PC.ACHO ---
Registration Status: Primary Language: Preferred Language: ED Information & Data Chief Complaint SOB 03/27/24 12:39 Chief Complaint SOB 03/27/24 12:31 Triage Note Pt has had a cough for 2 03/27/24 12:31 months. Is a smoker. Has been putting it off. Reports increased WOB and bout of confusion. Cough persistant, nonproductive. Went to yesterday, reported O2 in 60's wanted to call ambulance. Pt refused, left and did not follow up. Denies CP, has weakness, fatigue. SpO2 74% RA. Medical / Surgical History (Last Reviewed 03/27/24 @ 13:10 by Glen Peralta MD) Arthritis (Last Reviewed 03/27/24 @ 13:10 by Glen Peralta MD) History of section History of cholecystectomy Most Recent Vital Signs Temperature 37.1 C 03/27/24 12:31 Temperature Source Oral 03/27/24 12:31 Pulse 102 H 03/27/24 14:46 Pulse 103 H 03/27/24 14:50 Respiratory Rate 20 03/27/24 14:50 Respiratory Effort Short of Breath, Incrsd Work of Breathing 03/27/24 12:47 Blood Pressure 120/74 03/27/24 14:46 Blood Pressure Mean 88 03/27/24 14:46 Blood Pressure Position Sitting 03/27/24 12:31 Pulse Oximetry 97 03/27/24 14:50 Oxygen Delivery Method Nasal Cannula 03/27/24 14:40 Oxygen Flow Rate 2 03/27/24 14:40 Pain Level 5 03/27/24 15:16 Allergies No Known Allergies Allergy (Unverified 08/24/23 17:33) Precautions Isolation PUI 03/27/24 12:39 Active Medications Generic Name Dose Route Start Last Admin Trade Name Freq PRN Reason Stop Dose Admin Nicotine 21 mg 03/27/24 15:00 03/27/24 15:16 Nicotine 21 Mg/24 Hr Patch TD 21 mg DAILY QUINTEN Administration IV IV Catheter Type [Right Saline Lock Antecubital] IV Catheter Gauge [Right 18 Antecubital] Diagnostics 03/27/24 03/27/24 03/27/24 Range/Units 15:57 14:40 13:45 WBC (4.4-10.8) 10^3/uL RBC (3.93-5.22) 10^6/uL Hgb (11.2-15.7) g/dL Hct (36.0-46.0) % MCV (80-95) fL MCH (27.0-33.0) pg MCHC (32.0-36.0) % RDW (11.7-14.6) % Plt Count (130-400) 10^3/uL MPV (8.0-11.0) fL Immature Gran % % Neutrophils % % Lymphocytes % % Monocytes % % Eosinophils % % Basophils % % Nucleated RBC % (0.0-0.3) % Absolute Neutrophils (1.2-6.7) 10^3/uL Absolute Lymphocytes (1.2-3.4) 10^3/uL Absolute Monocytes (0.1-0.8) 10^3/uL Absolute Eosinophils (0.0-0.7) 10^3/uL Absolute Basophils (0.0-0.2) 10^3/uL Sodium (136-145) mmol/L Potassium (3.5-5.1) mmol/L Chloride (98-107) mmol/L Carbon Dioxide (21.0-32.0) mmol/L Anion Gap (3-11) mmol/L BUN (7-18) mg/dL Creatinine (0.55-1.02) mg/dL Est GFR (CKD-EPI 2020) (mL/min/1.73m2) Glucose (74-106) mg/dL Calcium (8.5-10.1) mg/dL Magnesium (1.8-2.4) mg/dL Total Bilirubin (0.2-1.0) mg/dL AST (15-37) U/L ALT (14-59) U/L Alkaline Phosphatase (46-116) U/L Troponin I Cancelled < 4 (<or=51) ng/L Total Protein (6.4-8.2) g/dL Albumin (3.4-5.0) g/dL COVID-19 Source Pending SARS-CoV-2 (PCR) Pending Influenza Type A (PCR) Pending Influenza Type B (PCR) Pending RSV (PCR) Pending 03/27/24 Range/Units 12:40 WBC 8.31 (4.4-10.8) 10^3/uL RBC 4.57 (3.93-5.22) 10^6/uL Hgb 13.4 (11.2-15.7) g/dL Hct 40.3 (36.0-46.0) % MCV 88 (80-95) fL MCH 29.3 (27.0-33.0) pg MCHC 33.3 (32.0-36.0) % RDW 13.8 (11.7-14.6) % Plt Count 229 (130-400) 10^3/uL MPV 9.5 (8.0-11.0) fL Immature Gran % 0.5 % Neutrophils % 90.3 % Lymphocytes % 6.4 % Monocytes % 2.6 % Eosinophils % 0.1 % Basophils % 0.1 % Nucleated RBC % 0.0 (0.0-0.3) % Absolute Neutrophils 7.50 H (1.2-6.7) 10^3/uL Absolute Lymphocytes 0.53 L (1.2-3.4) 10^3/uL Absolute Monocytes 0.22 (0.1-0.8) 10^3/uL Absolute Eosinophils 0.01 (0.0-0.7) 10^3/uL Absolute Basophils 0.01 (0.0-0.2) 10^3/uL Sodium 134 L (136-145) mmol/L Potassium 3.7 (3.5-5.1) mmol/L Chloride 96 L (98-107) mmol/L Carbon Dioxide 32.0 (21.0-32.0) mmol/L Anion Gap 6.0 (3-11) mmol/L BUN 21 H (7-18) mg/dL Creatinine 1.0 (0.55-1.02) mg/dL Est GFR (CKD-EPI 2020) 66.95 (mL/min/1.73m2) Glucose 132 H (74-106) mg/dL Calcium 8.7 (8.5-10.1) mg/dL Magnesium 1.4 L (1.8-2.4) mg/dL Total Bilirubin 0.22 (0.2-1.0) mg/dL AST 20 (15-37) U/L ALT 25 (14-59) U/L Alkaline Phosphatase 78 (46-116) U/L Troponin I 5 (<or=51) ng/L Total Protein 7.4 (6.4-8.2) g/dL Albumin 3.2 L (3.4-5.0) g/dL COVID-19 Source SARS-CoV-2 (PCR) Influenza Type A (PCR) Influenza Type B (PCR) RSV (PCR) Intake and Output - 24 Hour Total 03/27/24 12:23 thru 03/27/24 12:31 Weight 56.699 kg Falls Risk Assessment History of Falls No History 03/27/24 12:39 Contributing Factors Confusion,Impairments 03/27/24 12:39 Ambulatory Aids Independent 03/27/24 12:39 Tubes/Lines None 03/27/24 12:39 Gait Evaluation No gait disturbance 03/27/24 12:39 Cognition No cognitive impairment 03/27/24 12:39 Fall Total Score 6 03/27/24 12:39 Level of Risk Standard/Low Risk 03/27/24 12:39 Problems (Last Reviewed 03/27/24 @ 13:10 by Glen Peralta MD) Discharge planning issues (Acute) On deep vein thrombosis (DVT) prophylaxis (Acute) Nicotine dependence (Acute) Acute exacerbation of chronic obstructive pulmonary disease (Acute) Notes 03/27/24 13:00 Respiratory by Marino Goodrich RT Initial Evalutation/Assessment Start: 03/27/24 12:53 Freq: .Q SHIFT AND PRN Status: Active Protocol: Document 03/27/24 12:53 (Rec: 03/27/24 13:00 [id number]) RT Assessment Smoking History Smoking/Tobacco Use Status Current every day Tobacco: How many years used 30 Tobacco Type cigarettes Packs per Day 2 Cigarettes per Day 30 Years smoked 30 Smoking packs per day 1.5 OXYGEN HISTORY: Supplemental O2 At Rest 0 With Exertion 0 CPAP Can use home machine N/A BIPAP Can you home machine N/A Trilogy/AVAPS Can use home machine N/A DME/Compliance DME N/A Compliance N/A Current Respiratory Symptoms Current Respiratory Symptoms Cough,Other Activity Activity Level Normally very active with 2 jobs and 2 teenagers and pets. Respiratory Breath Sounds Breath Sounds Any abnormal sounds, decreased breath sounds Pulse Rate >100 Respiratory Rate 18-25 Shortness of Breath At rest Respiratory Therapy Score Total 5 Assessment and Plan RT Treatment Protocol Bronchodilator Aerosol Therapy Protocol,Lung Expansion Therapy Protocol,Bronchial Hygiene Therapy Protocol Note Pt has no formal diagnosis of pulmonary disease. Pt has extensive smoking history and very diminished lung sounds throughout. RT administered Duoneb nebulizer treatment. Pt tolerated well and is familiar with what nebulizers are. Pt states she has home prescription for Ventolin inhaler for SOB. No home O2 at baseline, currently resting on 2L OxyMask with SpO2 93%. Initialized on 03/27/24 13:00 - END OF NOTE v v v v v v v v v Sending and/or Receiving Nurses: Please use comment section below to note any information pertinent to the patient hand-off not included above. Information / Comments: report recieved. Report received from: JAVIER Platt @[id number]
[2024-03-27] MEDS: Enoxaparin 40 MG/0.4 ML SYR SC (16:12)
[2024-03-27] MEDS: Normal Saline Flush 10 ML SYR IVP ×2 (16:13→20:09)
[2024-03-27] MEDS: MAGNESIUM SULFATE 4 GM/100 ML BAG IV_INF (16:13)
[2024-03-27] MEDS: Oseltamivir 75 MG CAP PO (18:28)
[2024-03-27] MEDS: Doxycycline Hyclate 100 MG CAP PO (20:06)
[2024-03-27] MEDS: Gabapentin 300 MG CAP 600 MG PO (20:06)
[2024-03-27] MEDS: Melatonin 3 MG TAB 9 MG PO (20:07)
[2024-03-27] MEDS: HYDROcodone 5/Acetaminophen 325 TAB PO (20:29)
[2024-03-27] MEDS: guaiFENesin/D-METHORPHAN HB 5 ML CUP 10 ML PO (21:30)
[2024-03-28] VITALS (16 sets, daily range): BP systolic 103–116; BP diastolic 65–74; PULSE 77–100; RESP 2–20; TEMP 36.5–37.1; O2SAT 89–94
[2024-03-28] MEDS: Albuterol/Ipratropium 3 ML UPD VIAL UPD ×4 (02:25→22:19)
[2024-03-28] MEDS: guaiFENesin/D-METHORPHAN HB 5 ML CUP 10 ML PO ×3 (02:35→15:29)
[2024-03-28 06:18] LABS: Abs Immature Grans 0.05 10^3/uL (0.0-0.06); Absolute Basophil Count 0.01 10^3/uL (0.0-0.2); Absolute Eosinophil Count 0.01 10^3/uL (0.0-0.7); Absolute Lymphocyte Count 1.03 10^3/uL (1.2-3.4); Absolute Monocyte Count 0.73 10^3/uL (0.1-0.8); Absolute Neutrophil Count 8.64 10^3/uL (1.2-6.7); Basophils % 0.1 %; Eosinophils % 0.1 %; HCT 38.2 % (36.0-46.0); HGB 12.6 g/dL (11.2-15.7); Immature Grans % 0.5 %; Lymphocytes % 9.8 %; MCH 29.6 pg (27.0-33.0); MCV 90 fL (80-95); MPV 9.2 fL (8.0-11.0); Neutrophils % 82.5 %; Platelet Count 227 10^3/uL (130-400); RBC 4.26 10^6/uL (3.93-5.22); RDW 13.7 % (11.7-14.6); RDW-SD 45.5 fL; WBC 10.47 10^3/uL (4.4-10.8)
[2024-03-28 06:26] LABS: Anion Gap 4.7 mmol/L (3-11); BUN 29 mg/dL (7-18); CO2 33.3 mmol/L (21.0-32.0); CREATININE 0.9 mg/dL (0.55-1.02); Calcium 8.5 mg/dL (8.5-10.1); Chloride 99 mmol/L (98-107); Estimated GFR 75.97 (mL/min/1.73m2); Glucose 116 mg/dL (74-106); Magnesium 2.4 mg/dL (1.8-2.4); Potassium 4.3 mmol/L (3.5-5.1); Sodium 137 mmol/L (136-145)
[2024-03-28] MEDS: Oseltamivir 30 MG CAP PO (08:15)
[2024-03-28] MEDS: Gabapentin 300 MG CAP 600 MG PO ×3 (08:15→20:25)
[2024-03-28] MEDS: predniSONE 20 MG TAB 40 MG PO (08:16)
[2024-03-28] MEDS: Nicotine 21 MG/24 HR PATCH TD (08:18)
[2024-03-28] MEDS: Normal Saline Flush 10 ML SYR IVP ×2 (08:19→20:26)
[2024-03-28] MEDS: Tiotropium Bromide-Respimat 10 PUFF INH 2 PUFF IH (09:13)
--- NOTE | 2024-03-28 09:24 | PDOC.CMIN ---
Date of service: 03/28/24 Time of Service: 09:24 Care Management Initial Assmt Initial Assessment Reason for Hospitalization: COPD exacerbation Functional Status/Living Situation Patient Presentation: Ellen was sitting up in bed visiting with her Hussein when CM met with her. She was pleasant in manner and engaged well with CM. Ellen lives in [place] with her and 2 granddaughters aged 16 and 17. They have 3 children who live independently in the area. Ellen stated that the family is close and keep in contact on a regular basis. 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 Ellen was admitted with Influenza A and hypoxia. When she presented to Urgent Care yesterday her oxygen saturation was at 65%. She is doing much better today and is now down to 1L/min of oxygen and is saturating in the high 80s and low 90s. She informed CM that much of the chest tightness she experienced yesterday is now gone. Ellen and Hussein do not have Advanced Directives and expressed interest when CM raised the subject. They were given forms and contact information for CM and will call and make an appointment to complete the documents after discharge. Town of Residence: [place], [place] Resides with: Spouse ( Hussein and 2 granddaughters) Significant Other/Family: Local Employment Status: Employed Instrumental Activities of Daily Living (ADLs): Independent Medications Medication Management: No Issues/Barriers identified Physical Functioning/Mobility Assistive Device: none Advance Directives Advance Directives: Do you have an Advance Directive: N 03/27/24 12:30 AD On File at [facility]: N 05/10/12 17:32 Date Asked 03/27/24 03/27/24 12:30 AD Date Reviewed COLST On File at [facility] COLST Date Scanned Code Status Resuscitation Status Full Code Insurance Coverage/Financial Issues Insurance: Medicaid Care Team Visit Care Team Role Provider Type Marcel Richardson Primary Care Provider NON-[facility] STAFF PHYSICIAN Mary Jane Ricardo Other Providers OTHER Glen Peralta MD Emergency Provider [facility] STAFF PHYSICIAN Abbe Monge MD Admit Provider [facility] STAFF PHYSICIAN Attending Provider Discharge Potential Discharge Needs: PCP F/U Appt Anticipated Barriers to Discharge: None Identified Patient/Family Education Needs: Review discharge instructions, discuss Ask Me Three Transportation: Private vehicle Plan: Anticipate Ellen will be discharged home with no new services when medically stable. She will follow up with her PCP and plan of care and transport with family. CM will follow and continue to assess for discharge needs. Social Determinants of Health Screening Social Determinants of Health last assessed: 03/28/24 Will the Patient Participate in the Screening?: Declined to provide Do you worry about having a steady place to live?: no Problems where you live: no known problems In the past 12 months, have you had to go without electric, gas, oil or water in your home?: no Have you or anyone in your house had to go without enough food to eat?: no Has lack of transportation kept you from medical appointments or from doing things needed for daily living?: no Has anyone in your life made you feel unsafe or unsupported?: no How hard is it for you to pay for the very basics like food, housing, medical care, and heating? Would you say it is:: Not hard at all Do you want help finding or keeping work or a job?: I do not need or want help If for any reason you need help with day-to-day activities such as bathing, preparing meals, shopping, managing finances, etc., do you get the help you need?: I don?t need any help How often do you feel lonely or isolated from those around you?: Never Do you speak a language other than Serbian at home?: No Does the patient want assistance with any of the above?: No PFSH All Active Problems Hypomagnesemia (Acute) Influenza A (Acute) Discharge planning issues (Acute) On deep vein thrombosis (DVT) prophylaxis (Acute) Nicotine dependence (Acute) Acute exacerbation of chronic obstructive pulmonary disease (Acute) Medical History Arthritis Surgical History History of section History of cholecystectomy Social History Smoking/Tobacco Use Status: Current every day Tobacco Type: cigarettes Smoking packs per day: 1.5 Smoking cigarettes per day: 30.0 Years smoked: 30 Smoking pack-years: 45.00 Tobacco: How many years used: 30 Smoking risk assessment performed?: Yes Alcohol Intake: never Drug use: Never Housing: house Do you feel safe at home: Yes Do you feel safe in your relationship?: Yes
--- NOTE | 2024-03-28 10:12 | PGE_ITS ---
Date of Service Date of service: 03/28/24 Time of Service: 10:12 Assessment and Plan Assessment and plan (1) Acute exacerbation of chronic obstructive pulmonary disease: Status: Acute Assessment and plan: History of [id number] smoking without official COPD diagnostic testing results On admission had increased cough -nonproductive as per ED, but later on yellowish thick sputum expectorated Methylprednisolone IV given in ED X1 Continue oral prednisone and oral doxycycline CBC in AM (2) Nicotine dependence: Status: Acute Assessment and plan: Ongoing PRN nicotine patch (3) On deep vein thrombosis (DVT) prophylaxis: Status: Acute Assessment and plan: Continue LMWH (4) Influenza A: Status: Acute Assessment and plan: Continue Tamiflu normal dose (5) Hypomagnesemia: Status: Acute Assessment and plan: Resolved (6) Discharge planning issues: Status: Acute Assessment and plan: Discharge home when medically cleared- most likely 03/29 Might have new O2 needs Discussed with Dr. Monge Subjective Subjective Patient reports: no new complaints, tolerating liquids well, tolerating a regular diet, shortness of breath (improved) and afebrile; denies diarrhea, nausea or vomiting Exam Narrative Exam Narrative: Constitutional The patient is sitting in chair HENMT: Facial structures with normal appearance Neuro:alert and oriented X 4; non-focal A Chest:Chest is symmetrical and normal appearance Resp: Improved air flow but LLs remain diminished, no exp wheezing, decreased O2 requirement Cardio: regular rhythm, S1, S2 GI: Abdomen is not distended, soft and non tender, bowel sounds are present : Negative Costovertebral angle tenderness Back/spine/Pelvis: No back tenderness, normal alignment Extremities: strength 5/5 to bilateral lower and upper extremities Psych: RASS 0, congruent mood and normal affect. Objective Last Vital Signs Temp 36.5 C 03/28/24 02:20 Pulse 94 H 03/28/24 09:22 Resp 16 03/28/24 09:13 BP 103/74 03/28/24 02:20 Pulse Ox 90 L 03/28/24 09:13 Laboratory Results - last 24 hr 03/27/24 03/27/24 03/27/24 12:40 13:45 14:40 WBC 8.31 RBC 4.57 Hgb 13.4 Hct 40.3 MCV 88 MCH 29.3 MCHC 33.3 RDW 13.8 Plt Count 229 MPV 9.5 Immature Gran % 0.5 Neutrophils % 90.3 Lymphocytes % 6.4 Monocytes % 2.6 Eosinophils % 0.1 Basophils % 0.1 Nucleated RBC % 0.0 Absolute Neutrophils 7.50 H Absolute Lymphocytes 0.53 L Absolute Monocytes 0.22 Absolute Eosinophils 0.01 Absolute Basophils 0.01 Sodium 134 L Potassium 3.7 Chloride 96 L Carbon Dioxide 32.0 Anion Gap 6.0 BUN 21 H Creatinine 1.0 Est GFR (CKD-EPI 2020) 66.95 Glucose 132 H Calcium 8.7 Magnesium 1.4 L Total Bilirubin 0.22 AST 20 ALT 25 Alkaline Phosphatase 78 Troponin I 5 < 4 Total Protein 7.4 Albumin 3.2 L COVID-19 Source Nasopharynx SARS-CoV-2 (PCR) Negative Influenza Type A (PCR) Positive A Influenza Type B (PCR) Negative RSV (PCR) Negative 03/27/24 03/28/24 15:57 06:03 WBC 10.47 RBC 4.26 Hgb 12.6 Hct 38.2 MCV 90 MCH 29.6 MCHC 33.0 RDW 13.7 Plt Count 227 MPV 9.2 Immature Gran % 0.5 Neutrophils % 82.5 Lymphocytes % 9.8 Monocytes % 7.0 Eosinophils % 0.1 Basophils % 0.1 Nucleated RBC % 0.0 Absolute Neutrophils 8.64 H Absolute Lymphocytes 1.03 L Absolute Monocytes 0.73 Absolute Eosinophils 0.01 Absolute Basophils 0.01 Sodium 137 Potassium 4.3 Chloride 99 Carbon Dioxide 33.3 H Anion Gap 4.7 BUN 29 H Creatinine 0.9 Est GFR (CKD-EPI 2020) 75.97 Glucose 116 H Calcium 8.5 Magnesium 2.4 Total Bilirubin AST ALT Alkaline Phosphatase Troponin I Cancelled Total Protein Albumin COVID-19 Source SARS-CoV-2 (PCR) Influenza Type A (PCR) Influenza Type B (PCR) RSV (PCR) Time Spent with Patient Time Spent with Patient: >50 minutes Time was spent: preparing to see the patient(eg.review tests), obtaining and/or reviewing separately otained hiistory, ordering medications,tests, procedures, r eferring, communicating with other health customer care voice consultant, indepentently interpreting results, counseling the patient and care coordination
[2024-03-28] MEDS: Doxycycline Hyclate 100 MG CAP PO ×2 (10:35→20:25)
--- NOTE | 2024-03-28 12:04 | IN_ITS ---
PT Notes Visit Reasons: COPD exacerbation Physical Therapy Inpatient Initial Evaluation Date: 03/28/2024 Referring Doctor: Mague Ledbetter / Dr Monge PT Orders: PT CONSULT: Safety Consult for discharge Precautions: Droplet precautions, IV acess, Oxygen currently 2 L/Min via NC Patient Profile/Admitting Diagnosis: Pt is 53yo female presented to ED with increase cough . Pt (+) Flu A and diagnosed with acute exacerbation of COPD. Pt treated with supplemental oxygen, nebs and antibiotics. PMHX: Nicotine dependent, COPD Social History/Home Situation: Pt resides with Partner in multilevel home with 5 DENEEN . 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 She is very active and independent with all aspects of ADL, meal prep, ambulation, yard work including cleaning kennels and taking care of multiple dogs. She drives. Independent [employer] Equipment Owned/DME: None Subjective: Pt reports she is doing everything on her own in her room. She states she walked into the hospital on her own . She reports her oxygen level is lower now because of the flu. Objective: General Observation: Pt presents seated at EOB with BUE leaning on the bedside table talking with her partner. Oxygen in place at 2L/min Mental Status: A+Ox4, cooperative pleasant agreeable to evaluation. Pain: tightness in lungs denies pain ROM: Right Upper Extremity: WNL Left Upper Extremity: WNL Right Lower Extremity: WNL Left Lower Extremity: WNL Strength: Right Upper Extremity: 5/5 Left Upper Extremity: 5/5 Right Lower Extremity:5/5 Left Lower Extremity: 5/5 Sensation: Intact Bed Mobility/Transfers: Supine to sit Independent Sit to stand Independent Stand to sit Independent Bed to chair independent Gait: independent ambulation without AD 150 feet within her room including turns. Pt independent management of oxygen tubing. No LOB or deviations noted Stairs: simulated 13 steps with 1 rail with pt stepping up and down an 8 step 13 times independently Balance: [] Static Sitting:Normal Dynamic Sitting: Normal Static Standing: Normal Dynamic Standing: Normal Special Tests: 4 STAGE BALANCE TEST: Feet together >10 seconds 1/2 Stance >10 seconds Tandom stance >10seconds Single leg stance left>10 seconds, right>10 seconds Mobility Limitations Standardized Measure [] [facility] AM-PAC 6 clicks Basic Mobility Inpatient Short Form: Raw Score: 24 CMS Score: 0% Informed Consent/Education: Patient instructed in purpose of PT consult. Assessment: Patient is a 53 yo female presenting with limitation of breath control with reduced oxygen saturation related to COPD and Flu A diagnosis. Pt is independent with all functional tasks including bed mobility, transfers , ambulation and stairs. Skilled PT services are not indicated at this time. Pt in agreement with no need for skilled PT Patient is assessed as a low complexity based on the following: History: 53-year-old female with impairment level findings, functional limitations, and past medical history as indicated above Examination: demonstrates impaired breath control , reduced oxygen saturation during functional tasks d/t COPD, Flu A Presentation:stable Decision Making: low Goals: N/A. Plan of Care/Treatment Plan: N/A. DISCHARGE RECOMMENDATIONS: No skilled PT interventions indicated TREATMENT CODE/TIME: 16368 29 mins/ [id number] Thank you for the opportunity to participate in the care of this patient. Socorro Navarrete PT [facility]
[2024-03-28] MEDS: Enoxaparin 40 MG/0.4 ML SYR SC (15:28)
[2024-03-28] MEDS: Acetaminophen 325 MG TAB 650 MG PO (17:09)
[2024-03-28] MEDS: Melatonin 3 MG TAB 9 MG PO (20:25)
[2024-03-28] MEDS: Oseltamivir 75 MG CAP PO (20:26)
[2024-03-28] MEDS: HYDROcodone 5/Acetaminophen 325 TAB PO (20:29)
[2024-03-29] VITALS (15 sets, daily range): BP systolic 102–122; BP diastolic 61–85; PULSE 79–91; RESP 7–90; TEMP 36.6–37.3; O2SAT 85–93
[2024-03-29] MEDS: HYDROcodone 5/Acetaminophen 325 TAB PO ×2 (04:31→19:47)
[2024-03-29] MEDS: Gabapentin 300 MG CAP 600 MG PO ×2 (08:01→19:47)
[2024-03-29] MEDS: Oseltamivir 75 MG CAP PO ×2 (08:02→19:47)
[2024-03-29] MEDS: Nicotine 21 MG/24 HR PATCH TD (08:02)
[2024-03-29] MEDS: Doxycycline Hyclate 100 MG CAP PO ×2 (08:02→19:47)
[2024-03-29] MEDS: predniSONE 20 MG TAB 40 MG PO (08:02)
[2024-03-29] MEDS: Normal Saline Flush 10 ML SYR IVP ×2 (08:14→19:48)
[2024-03-29] MEDS: Tiotropium Bromide-Respimat 10 PUFF INH 2 PUFF IH (08:23)
[2024-03-29] MEDS: Albuterol/Ipratropium 3 ML UPD VIAL UPD ×2 (10:41→19:59)
[2024-03-29] MEDS: guaiFENesin/D-METHORPHAN HB 5 ML CUP 10 ML PO ×2 (11:14→20:09)
--- NOTE | 2024-03-29 13:51 | W.PM.PROGNOT ---
Date of Service Date of service: 03/29/24 Time of Service: 13:51 Assessment and Plan Assessment and plan (1) Acute hypoxic respiratory failure: Status: Acute Assessment and plan: In the setting of influenza, with history of tobacco use disorder Continue weaning oxygen as able She is on steroids and doxycycline in addition to Tamiflu. (2) Acute exacerbation of chronic obstructive pulmonary disease: Status: Acute Assessment and plan: History of [id number] smoking without official COPD diagnostic testing results On admission had increased cough -nonproductive as per ED, but later on yellowish thick sputum expectorated Methylprednisolone IV given in ED X1 Continue oral prednisone and oral doxycycline CBC in AM (3) Nicotine dependence: Status: Acute Assessment and plan: Ongoing PRN nicotine patch (4) On deep vein thrombosis (DVT) prophylaxis: Status: Acute Assessment and plan: Continue LMWH (5) Influenza A: Status: Acute Assessment and plan: Continue Tamiflu normal dose (6) Hypomagnesemia: Status: Acute Assessment and plan: Resolved (7) Discharge planning issues: Status: Acute Assessment and plan: Discharge home when medically cleared- most likely 03/29 Might have new O2 needs Discussed with Dr. Monge Subjective Subjective Patient reports: no new complaints, tolerating liquids well, shortness of breath (increased oxygen requirements after going to bathroom) and afebrile Exam Narrative Exam Narrative: thin female, acutely ill appearing, in no distress. Head is atraumatic eyes nonicteric noninjected neck full range of motion no meningeal signs respirations even and unlabored scattered coarse breath sounds throughout no wheeze cardiovascular regular rate and rhythm good pulses well-perfused skin is pale warm and dry abdomen flat nontender moves extremities equally no peripheral edema neurologic awake alert oriented no focal deficits psychiatric appropriate mood and affect Objective Last Vital Signs Temp 37.3 C 03/29/24 11:42 Pulse 90 03/29/24 11:42 Resp 16 03/29/24 11:42 BP 115/70 03/29/24 11:42 Pulse Ox 90 L 03/29/24 11:42 Time Spent with Patient Time Spent with Patient: 35-49 minutes Time was spent: preparing to see the patient(eg.review tests), obtaining and/or reviewing separately otained hiistory, ordering medications,tests, procedures, indepentently interpreting results and counseling the patient
--- NOTE | 2024-03-29 14:15 | PHA.REVIEW2 ---
Pharmacy Admission Review Admission Clinical Review Admission Pharmacy Review: Acute hypoxic respiratory failure (Acute) Hypomagnesemia (Acute) Influenza A (Acute) Discharge planning issues (Acute) On deep vein thrombosis (DVT) prophylaxis (Acute) Nicotine dependence (Acute) Acute exacerbation of chronic obstructive pulmonary disease (Acute) No Known Allergies Allergy (Unverified 08/24/23 17:33) Resuscitation Status Full Code Height 5 ft 6 in Weight 56.699 kg Pharmacy Admission Review Renal Dosing Renal Dosing: BUN 29 mg/dL (7-18) H 03/28/24 06:03 Creatinine 0.9 mg/dL (0.55-1.02) 03/28/24 06:03 Medications needing adjustments: Reviewed (CrCl 63.96 mL/min) List of meds needing interventions: Current medications are okay Anticoagulation Anticoagulation: Hgb 12.6 g/dL (11.2-15.7) 03/28/24 06:03 Hct 38.2 % (36.0-46.0) 03/28/24 06:03 Plt Count 227 10^3/uL (130-400) 03/28/24 06:03 Creatinine 0.9 mg/dL (0.55-1.02) 03/28/24 06:03 DVT Prophylaxis: Reviewed Medications: Enoxaparin (40mg daily) Opiate Usage Evaluate Pain Scale/Pains Meds: Reviewed (hydrocodone/APAP 325mg BID PRN - 2 tabs in past 24 hours) Scheduled Bowel Reg ordered if on Opiates?: No (PRN Miralax) Relevant Labs Relevant Labs: Sodium 137 mmol/L (136-145) 03/28/24 06:03 Potassium 4.3 mmol/L (3.5-5.1) 03/28/24 06:03 Chloride 99 mmol/L (98-107) 03/28/24 06:03 Magnesium 2.4 mg/dL (1.8-2.4) 03/28/24 06:03 Electrolytes, C-Reactive P, ESR: Reviewed (No new labs for today) Cardiac Review Cardiac Review: Troponin I Cancelled 03/27/24 15:57 BP, HR, EF%: Reviewed (BP and HR WNL, Ox 90 with flow rate 2) QTc Review QTc: Reviewed (455 from 03/27/24) IV to PO Switch IV Medications: Reviewed Home Meds Home Med List reviewed: Reviewed Relevent Home Meds Not ordered & why?: cyclobenzaprine (PRN) Current Meds Current Medication Order Review: Reviewed Pharmacy Antibiotic Review Relevant Labs: WBC 10.47 10^3/uL (4.4-10.8) 03/28/24 06:03 Temperature 37.3 C Temperature 36.6 C Temperature 36.9 C Comments: Patient is on doxycycline PO, day 2, for COPD exacerbation. She is also on Tamiflu, day2.
[2024-03-29] MEDS: Enoxaparin 40 MG/0.4 ML SYR SC (16:03)
[2024-03-29] MEDS: Melatonin 3 MG TAB 9 MG PO (19:46)
[2024-03-30] VITALS (15 sets, daily range): BP systolic 107–138; BP diastolic 73–86; PULSE 82–103; RESP 2–18; TEMP 36.4–37.2; O2SAT 79–94
[2024-03-30] MEDS: Ibuprofen 600 MG TAB PO (02:48)
[2024-03-30] MEDS: Nicotine 21 MG/24 HR PATCH TD (07:58)
[2024-03-30] MEDS: HYDROcodone 5/Acetaminophen 325 TAB PO (07:58)
[2024-03-30] MEDS: Oseltamivir 75 MG CAP PO ×2 (08:00→20:51)
[2024-03-30] MEDS: Doxycycline Hyclate 100 MG CAP PO ×2 (08:00→20:51)
[2024-03-30] MEDS: Gabapentin 300 MG CAP 600 MG PO ×3 (08:01→20:50)
[2024-03-30] MEDS: predniSONE 20 MG TAB 40 MG PO (08:01)
[2024-03-30] MEDS: Tiotropium Bromide-Respimat 10 PUFF INH 2 PUFF IH (08:36)
[2024-03-30] MEDS: Albuterol/Ipratropium 3 ML UPD VIAL UPD ×3 (11:14→20:29)
--- NOTE | 2024-03-30 11:38 | W.PM.PROGNOT ---
Date of Service Date of service: 03/30/24 Time of Service: 11:38 Assessment and Plan Assessment and plan (1) Acute hypoxic respiratory failure: Status: Acute Assessment and plan: In the setting of influenza, with history of tobacco use disorder Continue weaning oxygen as able She is on steroids and doxycycline in addition to Tamiflu day 05/14 Will schedule inhalers again as she continues to desat into the low 80s off oxygen, add Symbicort (2) Acute exacerbation of chronic obstructive pulmonary disease: Status: Acute Assessment and plan: History of [id number] smoking without official COPD diagnostic testing results On admission had increased cough -nonproductive as per ED, but later on yellowish thick sputum expectorated Methylprednisolone IV given in ED X1 Continue oral prednisone and oral doxycycline CBC in AM (3) Nicotine dependence: Status: Acute Assessment and plan: Ongoing PRN nicotine patch (4) On deep vein thrombosis (DVT) prophylaxis: Status: Acute Assessment and plan: Continue LMWH (5) Influenza A: Status: Acute Assessment and plan: Continue Tamiflu normal dose (6) Hypomagnesemia: Status: Acute Assessment and plan: Resolved (7) Discharge planning issues: Status: Acute Assessment and plan: Discharge home when medically cleared- most likely 03/29 Might have new O2 needs Discussed with Dr. Monge Subjective Subjective Patient reports: tolerating liquids well, shortness of breath and afebrile; denies tolerating a regular diet Interval history since last seen: Continues to have significant shortness of breath with activity and oxygen requirements. Appetite remains poor but is taking fluids she has been afebrile Exam Narrative Exam Narrative: thin female, acutely ill appearing, in no distress. Head is atraumatic eyes nonicteric noninjected neck full range of motion no meningeal signs respirations even and unlabored scattered coarse breath sounds throughout no wheeze cardiovascular regular rate and rhythm good pulses well-perfused skin is pale warm and dry abdomen flat nontender moves extremities equally no peripheral edema neurologic awake alert oriented no focal deficits psychiatric appropriate mood and affect Objective Last Vital Signs Temp 37.2 C 03/30/24 11:27 Pulse 88 03/30/24 11:27 Resp 18 03/30/24 11:27 BP 118/73 03/30/24 11:27 Pulse Ox 91 L 03/30/24 11:27 Time Spent with Patient Time Spent with Patient: 25-34 minutes Time was spent: preparing to see the patient(eg.review tests), obtaining and/or reviewing separately otained hiistory, ordering medications,tests, procedures, indepentently interpreting results and counseling the patient
[2024-03-30] MEDS: Budesonide/Formoterol 80/4.5 6.9 GM 60 PUFF INH IH ×2 (12:10→20:30)
[2024-03-30] MEDS: hydrOXYzine HCL 25 MG TAB PO ×2 (15:49→21:54)
[2024-03-30] MEDS: Enoxaparin 40 MG/0.4 ML SYR SC (15:50)
[2024-03-30] MEDS: Normal Saline Flush 10 ML SYR IVP ×2 (16:51→21:55)
[2024-03-30] MEDS: Melatonin 3 MG TAB 9 MG PO (20:51)
[2024-03-31] VITALS (15 sets, daily range): BP systolic 100–128; BP diastolic 67–79; PULSE 78–101; RESP 9–20; TEMP 36.5–37.3; O2SAT 87–96
[2024-03-31] MEDS: Oseltamivir 75 MG CAP PO ×2 (07:52→19:54)
[2024-03-31] MEDS: Gabapentin 300 MG CAP 600 MG PO ×3 (07:52→19:53)
[2024-03-31] MEDS: Doxycycline Hyclate 100 MG CAP PO ×2 (07:53→19:54)
[2024-03-31] MEDS: Nicotine 21 MG/24 HR PATCH TD (07:53)
[2024-03-31] MEDS: predniSONE 20 MG TAB 40 MG PO (07:53)
[2024-03-31] MEDS: Normal Saline Flush 10 ML SYR IVP ×2 (07:54→19:54)
[2024-03-31] MEDS: hydrOXYzine HCL 25 MG TAB PO ×3 (08:01→21:07)
[2024-03-31] MEDS: Budesonide/Formoterol 80/4.5 6.9 GM 60 PUFF INH IH ×2 (08:34→20:51)
[2024-03-31] MEDS: Tiotropium Bromide-Respimat 10 PUFF INH 2 PUFF IH (08:34)
[2024-03-31] MEDS: Albuterol/Ipratropium 3 ML UPD VIAL UPD ×4 (08:34→20:48)
--- NOTE | 2024-03-31 08:35 | PDOC.CMPRO ---
Date of service: 03/31/24 Time of Service: 08:35 Care Management Progress Note Progress Note Text Progress Note Text: Ellen was sitting up in bed visiting with her when CM met with her. She informed CM that she had a walk test this morning and that it did not go well. She stated she needed 6L/min of oxygen and can only have 4 L/min at home. She will likely need to remain hospitalized for at least another day. She reported that she has been walking in her room and using her IS in efforts to reduce her oxygen requirements. Discharge Potential Discharge Needs: PCP F/U Appt Anticipated Barriers to Discharge: Medical Status Patient/Family Education Needs: Review discharge instructions, discuss Ask Me Three Transportation: Private vehicle Plan: Anticipate Ellen will be discharged home with no new services when medically stable. She will follow up with her PCP and plan of care and transport with family. CM will follow and continue to assess for discharge needs. Social Determinants of Health Screening Social Determinants of Health last assessed: 03/31/24 Will the Patient Participate in the Screening?: Declined to provide Do you worry about having a steady place to live?: no Problems where you live: no known problems In the past 12 months, have you had to go without electric, gas, oil or water in your home?: no Have you or anyone in your house had to go without enough food to eat?: no Has lack of transportation kept you from medical appointments or from doing things needed for daily living?: no Has anyone in your life made you feel unsafe or unsupported?: no How hard is it for you to pay for the very basics like food, housing, medical care, and heating? Would you say it is:: Not hard at all Do you want help finding or keeping work or a job?: I do not need or want help If for any reason you need help with day-to-day activities such as bathing, preparing meals, shopping, managing finances, etc., do you get the help you need?: I don?t need any help How often do you feel lonely or isolated from those around you?: Never Do you speak a language other than Spanish at home?: No Does the patient want assistance with any of the above?: No
--- NOTE | 2024-03-31 09:14 | W.PM.DS.N ---
Date of service: 03/31/24 Time of Service: 09:14 DS: Diagnosis Discharge Diagnosis (1) Acute exacerbation of chronic obstructive pulmonary disease: Status: Acute (2) Nicotine dependence: Status: Acute (3) On deep vein thrombosis (DVT) prophylaxis: Status: Acute (4) Influenza A: Status: Acute (5) Hypomagnesemia: Status: Acute (6) Discharge planning issues: Status: Acute Discharge Plan Disposition Condition: Improving Discharge Details Reason For Visit: COPD exacerbation Admit Date/Time: 03/27/24 14:57 Admit Provider: Abbe Monge Attending Provider: Abbe Monge Primary Care Provider: Marcel Richardson Home Meds and New Rx's Prescriptions: Continued hydrocodone-acetaminophen 5-325 mg Tablet 1 tab PO BID PRN gabapentin 300 mg Capsule 900 mg PO TID albuterol sulfate 90 mcg/actuation Hfa Aerosol Inhaler 2 puff INHALATION QID PRN gabapentin [Neurontin] 100 mg capsule 100 mg PO TID Qty: 21 0RF tiotropium bromide [Spiriva with HandiHaler] 18 mcg capsule, w/inhalation device 1 cap INHALATION DAILY Patient Comments: INHALE 1 PUFF BY MOUTH ONCE DAILY cyclobenzaprine 10 mg tablet 10 mg PO TID PRNQty: 15 0RF prednisone 20 mg tablet 40 mg PO ONCE Qty: 6 0RF lidocaine [Lidoderm] 5 % adhesive patch,medicated 1 patch topical DAILY PRNQty: 15 0RF Rx Instructions: leave on most painful area for up to 12 hrs Discharge Data Discharge Physician: Glen Peralta DS: Summary Quality:SDOH Health Related Social Needs: No Data to Display Exam Narrative Exam Narrative: Constitutional The patient is sitting in chair HENMT: Facial structures with normal appearance Neuro:alert and oriented X 4; non-focal A Chest:Chest is symmetrical and normal appearance Resp: Improved air flow but LLs remain diminished, no exp wheezing, decreased O2 requirement Cardio: regular rhythm, S1, S2 GI: Abdomen is not distended, soft and non tender, bowel sounds are present : Negative Costovertebral angle tenderness Back/spine/Pelvis: No back tenderness, normal alignment Extremities: strength 5/5 to bilateral lower and upper extremities Psych: RASS 0, congruent mood and normal affect. DS: Data Vitals/I&O Vitals and I&O: Vital Signs Temperature 37.0 C 03/31/24 07:40 Temperature Source Temporal Artery Scan 03/31/24 07:40 Pulse 95 H 03/31/24 08:40 Pulse Rhythm Regular 03/27/24 15:51 Pulse 103 H 03/27/24 14:50 Respiratory Rate 19 03/31/24 08:40 Respiratory Effort Normal 03/27/24 15:51 Respiratory Depth Normal 03/27/24 15:51 Respiratory Pattern Normal 03/27/24 15:51 Blood Pressure 111/79 03/31/24 07:40 Blood Pressure Mean 88 03/27/24 14:46 Blood Pressure Position Sitting 03/27/24 12:31 Pulse Oximetry 90 L 03/31/24 08:40 Oxygen Delivery Method Nasal Cannula 03/31/24 08:34 Oxygen Flow Rate 1 03/31/24 08:34 Pain Level 0 03/30/24 23:41 Comment Notifying RN of low O2 03/31/24 07:40 Intake & Output 03/30/24 03/30/24 03/31/24 11:59 23:59 11:59 Intake Total 260 / 270 Balance 260 / 270 Intake: IV Oral 250 / 250 Other: Urine Color Yellow Pale Yellow Urine Appearance Clear Clear Urine Odor Normal Comment per pt voided x1 per pt she has voided pt voided x1 PFSH All Active Problems (Updated 03/29/24 @ 13:53 by Tess Fried NP) Acute hypoxic respiratory failure (Acute) Hypomagnesemia (Acute) Influenza A (Acute) Discharge planning issues (Acute) On deep vein thrombosis (DVT) prophylaxis (Acute) Nicotine dependence (Acute) Acute exacerbation of chronic obstructive pulmonary disease (Acute) Medical History Arthritis Surgical History History of section History of cholecystectomy Social History Smoking/Tobacco Use Status: Current every day Tobacco Type: cigarettes Smoking packs per day: 1.5 Smoking cigarettes per day: 30.0 Years smoked: 30 Smoking pack-years: 45.00 Tobacco: How many years used: 30 Smoking risk assessment performed?: Yes Alcohol Intake: never Drug use: Never Housing: house Do you feel safe at home: Yes Do you feel safe in your relationship?: Yes
--- NOTE | 2024-03-31 14:44 | W.PM.PROGNOT ---
Date of Service Date of service: 03/31/24 Time of Service: 14:44 Assessment and Plan Assessment and plan (1) Acute hypoxic respiratory failure: Status: Acute Assessment and plan: History of over [id number] smoking without official PFT in the setting of influenza Continue weaning oxygen to maintain sat 88% to 90% Continue steroids and doxycycline. The patient might require a longer course of the prednisone burst. Continue Tamiflu day 4 of 5 Continue scheduled inhalers reinstated on 03/31/2024 due to saturation down in the 80s off oxygen with as needed inhalers Continue Symbicort Thoracic lung POCUS completed today please report on the procedure (2) Acute exacerbation of chronic obstructive pulmonary disease: Status: Acute Assessment and plan: History of [id number] smoking without official COPD diagnostic testing results Start or in the 60s at urgent care then in the 70s in the emergency room Increased cough and viscous yellowish sputum production on the floor on the day of admission Methylprednisolone IV given in ED X1 -transitioned to oral steroid burst Oral prednisone?a longer course might be needed Continue oral doxycycline Thoracic lung POCUS completed today please report on the procedure (3) Nicotine dependence: Status: Acute Assessment and plan: Continue PRN nicotine patch (4) On deep vein thrombosis (DVT) prophylaxis: Status: Acute Assessment and plan: Continue LMWH (5) Influenza A: Status: Acute Assessment and plan: Continue Tamiflu normal dose (6) Hypomagnesemia: Status: Acute Assessment and plan: Resolved mag level pending today (7) Discharge planning issues: Status: Acute Assessment and plan: Discharge home when medically cleared Have new O2 needs at 5 L via nasal cannula with RT during walk this is too high to allow for discharge today Discussed with Dr. Monge Subjective Subjective Patient reports: tolerating liquids well, tolerating a regular diet (Decreased oral intake) and shortness of breath (Increased shortness of breath with ambulation, reported as worse than prior day); denies still having pain, nausea, vomiting or fever Exam Narrative Exam Narrative: Constitutional The patient is in bed without acute respiratory distress at rest but increase oxygen requirement on ambulation as per RT notes HENMT: Facial structures with normal appearance Neuro:alert and oriented X 4; non-focal A Resp: LLs remain diminished?left > right, no exp wheezing, on 1 L nasal cannula at rest Cardio: regular rhythm, S1, S2 Psych: RASS 0, congruent to anxious mood and normal functions affect. Objective Last Vital Signs Temp 36.5 C 03/31/24 10:51 Pulse 96 H 03/31/24 11:21 Resp 20 03/31/24 11:10 BP 111/67 03/31/24 10:51 Pulse Ox 87 L 03/31/24 11:22 Pocus Exam Limited Cardiac Exam DATE OF EXAM: 03/31/24 TIME OF EXAM: 14:46 PROVIDER THAT PERFORMED THE STUDY: Glen Peralta IS THIS A REPEAT EXAM DURING THIS ENCOUNTER: no REASON FOR EXAM: Dyspnea VISUALIZED STRUCTURES: four chambers, left atrium, left ventricle, LVOT, right atrium, right ventricle, aortic valve, mitral valve, Interventricular septum and IVC VIEW OBTAINED: Apical 4-Chamber, Parasternal long-axis and Subxiphoid DIFFERENTIAL DIAGNOSES: RV dilation Exam complete Limited Thoracic Lung Exam DATE OF EXAM: 03/31/24 TIME OF EXAM: 14:48 PROVIDER THAT PERFORMED THE STUDY: Glen Peralta IS THIS A REPEAT EXAM DURING THIS ENCOUNTER: No REASON FOR EXAM: COPD and Shortness ofBreath VISUALIZED STRUCTURES: right anterior, left anterior, right lateral and left lateral PERTINENT FINDINGS/IMPRESSION: B-lines/left side (more prominent - minimal on R) DIFFERENTIAL DIAGNOSES: COPD , influenza A infection Time Spent with Patient Time Spent with Patient: >50 minutes Time was spent: preparing to see the patient(eg.review tests), obtaining and/or reviewing separately otained hiistory, ordering medications,tests, procedures, referring, communicating with other health career resource specialist, indepentently interpreting results, counseling the patient and care coordination
[2024-03-31] MEDS: Enoxaparin 40 MG/0.4 ML SYR SC (15:30)
[2024-03-31 17:27] LABS: MCH 29.3 pg (27.0-33.0); MCHC 34.2 % (32.0-36.0); MCV 86 fL (80-95); Platelet Count 199 10^3/uL (130-400); RBC 4.43 10^6/uL (3.93-5.22); RDW 13.2 % (11.7-14.6); RDW-SD 41.7 fL; WBC 6.07 10^3/uL (4.4-10.8)
[2024-03-31 17:43] LABS: Anion Gap 0.3 mmol/L (3-11); BUN 7 mg/dL (7-18); CO2 38.7 mmol/L (21.0-32.0); CREATININE 0.6 mg/dL (0.55-1.02); Calcium 8.8 mg/dL (8.5-10.1); Chloride 99 mmol/L (98-107); Glucose 109 mg/dL (74-106); Magnesium 1.2 mg/dL (1.8-2.4); Potassium 3.8 mmol/L (3.5-5.1); Sodium 138 mmol/L (136-145)
[2024-03-31 17:46] LABS: Absolute Neutrophil Count 3.95 10^3/uL (1.2-6.7); Bands % 4 %
[2024-03-31 17:47] LABS: Absolute Lymphocyte Count 1.88 10^3/uL (1.2-3.4); Absolute Monocyte Count 0.24 10^3/uL (0.1-0.8); Atypical Lymphocytes % 6 %
[2024-03-31 17:48] LABS: Diff Comment Manual Differential; RBC Morphology Normal
[2024-03-31] MEDS: MAGNESIUM SULFATE 2 GM/50 ML BAG IV_INF (18:50)
[2024-03-31] MEDS: Melatonin 3 MG TAB 9 MG PO (19:53)
[2024-04-01] VITALS (11 sets, daily range): BP systolic 100–125; BP diastolic 65–87; PULSE 74–105; RESP 2–18; TEMP 36.5–36.9; O2SAT 89–93
[2024-04-01] MEDS: hydrOXYzine HCL 25 MG TAB PO ×2 (04:56→11:18)
[2024-04-01] MEDS: Oseltamivir 75 MG CAP PO (08:28)
[2024-04-01] MEDS: Doxycycline Hyclate 100 MG CAP PO (08:29)
[2024-04-01] MEDS: Gabapentin 300 MG CAP 600 MG PO ×2 (08:29→14:06)
[2024-04-01] MEDS: predniSONE 20 MG TAB 40 MG PO (08:29)
[2024-04-01] MEDS: Nicotine 21 MG/24 HR PATCH TD (08:30)
[2024-04-01] MEDS: Normal Saline Flush 10 ML SYR IVP ×2 (08:31→15:32)
--- NOTE | 2024-04-01 09:13 | PDOC.CMPRO ---
Date of service: 04/01/24 Time of Service: 09:13 Care Management Progress Note Discharge Potential Discharge Needs: PCP F/U Appt Anticipated Barriers to Discharge: None Identified Patient/Family Education Needs: Review discharge instructions, discuss Ask Me Three Transportation: Private vehicle Plan: Anticipate Ellen will be discharged home with no new services when medically stable. She will follow up with her PCP and plan of care and transport with family. CM will follow and continue to assess for discharge needs. Social Determinants of Health Screening Social Determinants of Health last assessed: 04/01/24 Will the Patient Participate in the Screening?: Declined to provide Do you worry about having a steady place to live?: no Problems where you live: no known problems In the past 12 months, have you had to go without electric, gas, oil or water in your home?: no Have you or anyone in your house had to go without enough food to eat?: no Has lack of transportation kept you from medical appointments or from doing things needed for daily living?: no Has anyone in your life made you feel unsafe or unsupported?: no How hard is it for you to pay for the very basics like food, housing, medical care, and heating? Would you say it is:: Not hard at all Do you want help finding or keeping work or a job?: I do not need or want help If for any reason you need help with day-to-day activities such as bathing, preparing meals, shopping, managing finances, etc., do you get the help you need?: I don?t need any help How often do you feel lonely or isolated from those around you?: Never Do you speak a language other than [place] at home?: No Does the patient want assistance with any of the above?: No
--- NOTE | 2024-04-01 09:45 | W.PM.PROGNOT ---
Assessment and Plan Assessment and plan (1) Acute hypoxic respiratory failure: Status: Acute Assessment and plan: History of over 49-[id number]-bhlo smoking without official PFT in the setting of influenza Continue weaning oxygen to maintain sat 88% to 90% Continue steroids and doxycycline. The patient might require a longer course of the prednisone burst. Continue Tamiflu day 4 of 5 Continue scheduled inhalers reinstated on 03/31/2024 due to saturation down in the 80s off oxygen with as needed inhalers Continue Symbicort Thoracic lung POCUS completed today please report on the procedure (2) Acute exacerbation of chronic obstructive pulmonary disease: Status: Acute Assessment and plan: History of [id number]-ddab smoking without official COPD diagnostic testing results Start or in the 60s at urgent care then in the 70s in the emergency room Increased cough and viscous yellowish sputum production on the floor on the day of admission Methylprednisolone IV given in ED X1 -transitioned to oral steroid burst Oral prednisone?a longer course might be needed Continue oral doxycycline Thoracic lung POCUS completed today please report on the procedure (3) Nicotine dependence: Status: Acute Assessment and plan: Continue PRN nicotine patch (4) On deep vein thrombosis (DVT) prophylaxis: Status: Acute Assessment and plan: Continue LMWH (5) Influenza A: Status: Acute Assessment and plan: Continue Tamiflu normal dose (6) Hypomagnesemia: Status: Acute Assessment and plan: Mag 1.2 on 03/31 - supplementation provided Mg level pending today (7) Discharge planning issues: Status: Acute Assessment and plan: Discharge home when medically cleared Have new O2 needs at 5 L via nasal cannula with RT during walk this is too high to allow for discharge today Discussed with Dr. Monge Objective Last Vital Signs Temp 36.6 C 04/01/24 07:30 Pulse 80 04/01/24 07:30 Resp 14 04/01/24 07:30 BP 125/87 04/01/24 07:30 Pulse Ox 93 04/01/24 07:30 Laboratory Results - last 24 hr 03/31/24 17:20 WBC 6.07 RBC 4.43 Hgb 13.0 Hct 38.0 MCV 86 D MCH 29.3 MCHC 34.2 RDW 13.2 Plt Count 199 MPV 9.0 Immature Gran % 0.0 Neutrophils % 61.0 Band Neutrophils % 4 Lymphocytes % 25.0 Atypical Lymphs % 6 Monocytes % 4.0 Eosinophils % 0.0 Basophils % 0.0 Nucleated RBC % 0.0 Absolute Neutrophils 3.95 Absolute Lymphocytes 1.88 Absolute Monocytes 0.24 Absolute Eosinophils 0.00 Absolute Basophils 0.00 RBC Morphology Normal Sodium 138 Potassium 3.8 Chloride 99 Carbon Dioxide 38.7 H Anion Gap 0.3 L BUN 7 Creatinine 0.6 Est GFR (CKD-EPI 2020) 106.60 Glucose 109 H Calcium 8.8 Magnesium 1.2 L
[2024-04-01 10:26] LABS: Magnesium 1.5 mg/dL (1.8-2.4)
[2024-04-01] MEDS: Budesonide/Formoterol 80/4.5 6.9 GM 60 PUFF INH IH (10:30)
[2024-04-01] MEDS: Albuterol/Ipratropium 3 ML UPD VIAL UPD ×2 (10:30→15:22)
[2024-04-01] MEDS: Tiotropium Bromide-Respimat 10 PUFF INH 2 PUFF IH (10:30)
[2024-04-01] MEDS: guaiFENesin/D-METHORPHAN HB 5 ML CUP 10 ML PO (11:19)
--- NOTE | 2024-04-01 12:42 | RESPIRATORY ---
Addendum entered by Marino Goodrich 04/01/24 17:08: Pt discharged home today with new oxygen prescription. Resting 2L, ambulation 4L - pulse dose [employer] portable concentrator issued by [employer]. Pt also discharged home with new home nebulizer from [employer] [facility] and prescription for 7 days of QID Duonebs, followed by 7 days of Albuterol nebs. Original Note: Exercise Oximetry 04/01/2024 Pt was able to maintain SPO2 greater than 88% at rest on 1-2L on the portable concentrator. Pt was able to maintain greater than 88% during ambulation on 4L on the portable concentrator. After walking to the bathroom on 1L NC pt was 81% SPO2. Pt states she does have SPO2 monitor at home.
[2024-04-01] MEDS: MAGNESIUM SULFATE 2 GM/50 ML BAG IV_INF (14:08)
--- NOTE | 2024-04-01 14:42 | DSE_ITS ---
Date of service: 04/01/24 Time of Service: 14:55 DS: Diagnosis Discharge Diagnosis (1) Acute hypoxic respiratory failure: Status: Acute (2) Acute exacerbation of chronic obstructive pulmonary disease: Status: Acute (3) Nicotine dependence: Status: Acute (4) On deep vein thrombosis (DVT) prophylaxis: Status: Acute (5) Influenza A: Status: Acute (6) Hypomagnesemia: Status: Acute (7) Discharge planning issues: Status: Acute Discharge Plan Disposition Patient Disposition: Home W/Home Health Services Condition: Improving Discharge Details Reason For Visit: COPD exacerbation Admit Date/Time: 03/27/24 14:57 Admit Provider: Abbe Monge Attending Provider: Abbe Monge Primary Care Provider: Marcel Richardson [facility] Hospital Course: This 49-year-old female patient with past medical history of nicotine dependence of about [id number], bronchitis with no formal COPD diagnosis and no home oxygen requirement presented to the ED at [facility] on 03/27/2024 with complaints of increased shortness of breath for the last 3 days prior to pres entation. The patient was at urgent care and was referred to the emergency department due to her saturation in the 60s on room air for which nonrebreather oxygen supplementation at the be initiated. On arrival to the ED the patient was tachycardic, hypoxic but afebrile. Workup in the ED was significant for the absence of leukocytosis, magnesium was at 1.4 and supplementation provided; otherwise CBC and chemistry were unremarkable. Chest x-ray showed cephalization and hyperinflation without acute abnormalities. In the ED the patient was treated with continuous nebulizer, IV methylprednisolone and oxygen therapy. Hospitalist team admitted the patient to the medical surgical floor for evaluation and management of hypoxic respiratory failure and COPD exacerbation, new oxygen requirement. Upon discussion with the ED provider and upper respiratory viral panel was recommended and upon completion the patient was found to have an influenza a viral infection. During the stay, the patient continues to receive scheduled nebulizer treatment as were unable to scale them down to as needed due to respiratory decompensation. Upon report of increased sputum production and change in sputum color, doxycycline was initiated. IV steroids were transitioned to oral prednisone. Oral Mucinex was also initiated. The patient also receive hydroxyzine to assist with her anxiety. Cardiac POCUS exam showed no cardiac impairment except for some RV dilation. POCUS limited thoracic lung exam showed increased B-lines to the left side most likely due to alveolar injury/alveolar fluids in the setting of influenza infection with no indication for diuresis. Today, the patient was able to complete ambulatory pulse oximetry with the respiratory therapist with an oxygen requirement of 4 L/min by nasal cannula. The patient will be discharged home with home health physical therapy for better breathing, a course of oral prednisone with taper, doxycycline, Mucinex, Tamiflu to finish her influenza treatment, nebulizer treatments and a limited amount of hydroxyzine for anxiety. The patient will have to follow-up with a primary care practitioner within 7 days of discharge. A pulmonary referral was also ordered for the patient. Discussed with Dr. Alvarez Home Meds and New Rx's Prescriptions: New albuterol sulfate 2.5 mg /3 mL (0.083 %) Solution For Nebulization 2.5 mg UPD Q8H PRN (Reason: shortness of breath or wheezing) Qty: 63 0RF ipratropium-albuterol 0.5 mg-3 mg(2.5 mg base)/3 mL Solution For Nebulization 3 ml UPD QID Qty: 90 0RF budesonide-formoterol [Symbicort] 80-4.5 mcg/actuation Hfa Aerosol Inhaler 2 puff inhalation BID Qty: 10.2 0RF doxycycline hyclate 100 mg Capsule 100 mg PO BID Qty: 6 0RF guaifenesin [Mucus Relief ER] 600 mg Tablet Extended Release 12hr 600 mg PO BID Qty: 14 0RF hydroxyzine HCl 25 mg Tablet 25 mg PO TID PRNQty: 10 0RF oseltamivir 75 mg Capsule 75 mg PO BID Qty: 3 0RF Continued hydrocodone-acetaminophen 5-325 mg Tablet 1 tab PO BID PRN gabapentin 300 mg Capsule 900 mg PO TID albuterol sulfate 90 mcg/actuation Hfa Aerosol Inhaler 2 puff INHALATION QID PRN gabapentin [Neurontin] 100 mg capsule 100 mg PO TID Qty: 21 0RF tiotropium bromide [Spiriva with HandiHaler] 18 mcg capsule, w/inhalation device 1 cap INHALATION DAILY Patient Comments: INHALE 1 PUFF BY MOUTH ONCE DAILY cyclobenzaprine 10 mg tablet 10 mg PO TID PRNQty: 15 0RF lidocaine [Lidoderm] 5 % adhesive patch,medicated 1 patch topical DAILY PRNQty: 15 0RF Rx Instructions: leave on most painful area for up to 12 hrs Changed prednisone 20 mg tablet See Rx Instructions .ROUTE .COMPLEX Qty: 12 0RF Rx Instructions: Take prednisone 40 mg orally in the morning with food for 4 days Then take 20 mg orally for 4 days then stop. Discharge Instructions Stand Alone Forms: Nursing Discharge Form Referrals: Huma Sierra PA [[employer]] - (Kiarra Finn, I would like to refer a 53 yo F -w a > 40 pack year Hx of smoking- never had an official COPD Dx, no PFT, but on spiriva at home- Admitted for COPD exacerbation in the setting of positive influenza infection with new O2 requirement at d/c. ) Marcel Richardson [Primary Care Provider] - 04/14/24 2:00 pm Activity:: Activity as Tolerated Equipment/Supplies:: No Equipment Needed Diet:: As Tolerated Discharge Orders Discharge Orders: Discharge Order (Routine); Ordered 04/01/24 Ordered By: Mague Ledbetter DS: Summary Time Spent with Patient providing and/or coordinating discharge services: Greater than 30 minutes Status at Discharge Functional status at discharge: independent ambulation Overall status at discharge: patient is progressing back to baseline Mental Status: mental status grossly normal Speech and Movement: speech and movement normal Mood: congruent mood Affect: normal affect Quality:SDOH Health Related Social Needs: No Data to Display Exam Narrative Exam Narrative: Constitutional The patient in bed without acute respiratory distress, reports feeling better status with completion of ambulatory oximetry with RT HENMT: Facial structures with normal appearance Neuro:alert and oriented X 4; non-focal A Resp: Improve air movement bilaterally but lower lobes are still diminished?left > right, no wheezing nor crackles heard, still required oxygen supplementation please see RT notes Cardio: regular rhythm, S1, S2 Psych: RASS 0, congruent to anxious mood and normal functions affect. Psych Mental Status: mental status grossly normal Speech and Movement: speech and movement normal Mood: congruent mood Affect: normal affect DS: Data Vitals/I&O Vitals and I&O: Vital Signs Temperature 36.7 C 04/01/24 11:30 Temperature Source Tympanic 04/01/24 11:30 Pulse 80 04/01/24 11:30 Pulse Rhythm Regular 03/27/24 15:51 Pulse 103 H 03/27/24 14:50 Respiratory Rate 16 04/01/24 11:30 Respiratory Effort Normal 03/27/24 15:51 Respiratory Depth Normal 03/27/24 15:51 Respiratory Pattern Normal 03/27/24 15:51 Blood Pressure 113/79 04/01/24 11:30 Blood Pressure Mean 88 03/27/24 14:46 Blood Pressure Position Sitting 03/27/24 12:31 Pulse Oximetry 89 L 04/01/24 11:30 Oxygen Delivery Method Nasal Cannula 04/01/24 11:30 Oxygen Flow Rate 1 04/01/24 11:30 Pain Level 0 04/01/24 09:16 Comment RN was present 03/31/24 15:28 Intake & Output 03/31/24 04/01/24 04/01/24 23:59 11:59 23:59 Intake Total 120 / 120 Balance 120 / 120 Intake: Oral 120 / 120 Other: Urine Color Yellow Comment pt has been voiding independently, no issues reported pt voided x1 Data Completed and Pending Labs on day of discharge: Labs from last 24 hours 04/01/24 03/31/24 09:58 17:20 WBC 6.07 RBC 4.43 Hgb 13.0 Hct 38.0 MCV 86 D MCH 29.3 MCHC 34.2 RDW 13.2 Plt Count 199 MPV 9.0 Immature Gran % 0.0 Neutrophils % 61.0 Band Neutrophils % 4 Lymphocytes % 25.0 Atypical Lymphs % 6 Monocytes % 4.0 Eosinophils % 0.0 Basophils % 0.0 Nucleated RBC % 0.0 Absolute Neutrophils 3.95 Absolute Lymphocytes 1.88 Absolute Monocytes 0.24 Absolute Eosinophils 0.00 Absolute Basophils 0.00 RBC Morphology Normal Sodium 138 Potassium 3.8 Chloride 99 Carbon Dioxide 38.7 H Anion Gap 0.3 L BUN 7 Creatinine 0.6 Est GFR (CKD-EPI 2020) 106.60 Glucose 109 H Calcium 8.8 Magnesium 1.5 L 1.2 L PFSH All Active Problems (Updated 03/29/24 @ 13:53 by Tess Fried NP) Acute hypoxic respiratory failure (Acute) Hypomagnesemia (Acute) Influenza A (Acute) Discharge planning issues (Acute) On deep vein thrombosis (DVT) prophylaxis (Acute) Nicotine dependence (Acute) Acute exacerbation of chronic obstructive pulmonary disease (Acute) Medical History Arthritis Surgical History History of section History of cholecystectomy Social History Smoking/Tobacco Use Status: Current every day Tobacco Type: cigarettes Smoking packs per day: 1.5 Smoking cigarettes per day: 30.0 Years smoked: 30 Smoking pack-years: 45.00 Tobacco: How many years used: 30 Smoking risk assessment performed?: Yes Alcohol Intake: never Drug use: Never Housing: house Do you feel safe at home: Yes Do you feel safe in your relationship?: Yes Time Spent with Patient Time Spent with Patient: 70-84 minutes4 Time was spent: preparing to see the patient(eg.review tests), obtaining and/or reviewing separately otained hiistory, ordering medications,tests, procedures, referring, communicating with other health pediatric acute care unit nurse, indepentently interpreting results, counseling the patient and care coordination
--- NOTE | 2024-04-01 15:32 | PDOC.CMDIS ---
Date of service: 04/01/24 Time of Service: 15:32 LACE Index Scoring Tool Questions: Length of Stay (in days): 4 - 6 Was the patient admitted via the E.D.?: Yes Comorbidities: Chronic Pulmonary Disease E.D. Visits: 1 Answers: Total Score: 10 Risk of Readmission: High Risk Care Management Discharge Plan Reason for Hospitalization: COPD Exacerbation/Influenza Discharge Plan: Ellen will be discharged home with new home health services for PT and the [facility] program when medically stable. She will follow up with her PCP and plan of care and transport with family. Ellen will also need new home oxygen as she requires 4L/min with ambulation and activity and 1L at rest.. Services Needed at Discharge: Home Health Care Services and Oxygen Therapy SDOH Health Related Social Needs: No Data to Display
--- NOTE | 2024-04-01 15:54 | PDOC.HHF2F_ITS ---
Home Health Referral Home Health Orders Clinical synopsis of why skilled professionals are needed: This 49-year-old female patient with past medical history of nicotine dependence of about [id number], bronchitis with no formal COPD diagnosis and no home oxygen requirement presented to the ED at [facility] on 03/27/2024 with complaints of increased shortness of breath for the last 3 days prior to presentation. The patient was at urgent care and was referred to the emergency department due to her saturation in the 60s on room air for which nonrebreather oxygen supplementation at the be initiated. On arrival to the ED the patient was tachycardic, hypoxic but afebrile. Workup in the ED was significant for the absence of leukocytosis, magnesium was at 1.4 and supplementation provided; otherwise CBC and chemistry were unremarkable. Chest x-ray showed cephalization and hyperinflation without acute abnormalities. In the ED the patient was treated with continuous nebulizer, IV methylprednisolone and oxygen therapy. Hospitalist team admitted the patient to the medical surgical floor for evaluation and management of hypoxic respiratory failure and COPD exacerbation, new oxygen requirement. Upon discussion with the ED provider and upper respiratory viral panel was recommended and upon compl etion the patient was found to have an influenza a viral infection. During the stay, the patient continues to receive scheduled nebulizer treatment as were unable to scale them down to as needed due to respiratory decompensation. Upon report of increased sputum production and change in sputum color, doxycycline was initiated. IV steroids were transitioned to oral prednisone. Oral Mucinex was also initiated. The patient also receive hydroxyzine to assist with her anxiety. Cardiac POCUS exam showed no cardiac impairment except for some RV dilation. POCUS limited thoracic lung exam showed increased B-lines to the left side most likely due to alveolar injury/alveolar fluids in the setting of influenza infection with no indication for diuresis. Today, the patient was able to complete ambulatory pulse oximetry with the respiratory therapist with an oxygen requirement of 4 L/min by nasal cannula. The patient will be discharged home with home health physical therapy for better breathing, a course of oral prednisone with taper, doxycycline, Mucinex, Tamiflu to finish her influenza treatment, nebulizer treatments and a limited amount of hydroxyzine for anxiety. The patient will have to follow-up with a primary care practitioner within 7 days of discharge. A pulmonary referral was also ordered for the patient. Discussed with Dr. Alvarez Physical Therapist: Check all that apply Better Breathing Program: Ordered Home Bound Status Requires the aid of supportive device (check all that apply): Other (Oxygen ) Describe why leaving home would require a considerable and taxing effort: Requires frequent rest periods and Oxygen Encounter Date and Reason: I certify that a FTF encounter for this patient was performed on April 01, 2024 and that such encounter was related to the primary reason the patient requ ires home health services. The encounter was conducted in the following manner: * By me as the certifying physician, THREAD TOOL GRINDER SET UP OPERATOR, PA or * By an inpatient physician, THREAD TOOL GRINDER SET UP OPERATOR or PA during an inpatient stay who communicated findings to me, Certification And Authentication I certify that I composed the above information based on my clinical judgment relating to this patient's medical condition and, if applicable, clinical findings communicated to me by the NPP or inpatient physician who performed the FTF encounter. Name of Provider that will be monitoring home health services: Marcel Richardson
== END 2024-04-01 16:22 | disposition home health service (06) | DRG 193 ==
LOC: ER 14:28 → MS 03-28 14:14
PROVIDERS: Nurse Practitioner Acute Care; Admitting Provider Family Medicine; Emergency Provider Emergency Medicine Emergency Medical Services; PCP Internal Medicine; Visit Provider Family Medicine
DX: J10.1 Influenza due to other identified influenza virus with other respiratory manifestations (principal); J96.01 Acute respiratory failure with hypoxia; J44.1 Chronic obstructive pulmonary disease with (acute) exacerbation; F17.210 Nicotine dependence, cigarettes, uncomplicated; Z79.899 Other long term (current) drug therapy; E83.42 Hypomagnesemia
CPT/HCPCS: 00123; 36415; 80048; 80053; 87637; 93005; 93308; 94618; 94640; 94761; 96365; 96372; 96375; 97161; 99285; J1650; 71045; 83735; 84484; 85025; 93010; 94664; 94760; 99223; 99232; 99233; 99239; J2919; J3475; J7512; J7620

== ENCOUNTER 2024-04-04 16:08 | Inpatient (IN) | payer MEDICAID, SELFPAY ==
[2024-04-04] VITALS (50 sets, daily range): BP systolic 116–149; BP diastolic 72–94; PULSE 82–105; RESP 5–26; TEMP 36.5; O2SAT 82–99
--- NOTE | 2024-04-04 16:00 | RT.EKG_ITS ---
APPROVED REPORT Exam: Resting ECG Reason for Exam: dyspnea Patient Location: E HR:93 bpm ECG Measurements Heart Rate 93 AXIS VT 149 P 147 QRSd 75 QRS 85 QT 336 T 120 QTc 417 Conclusion Sinus rhythm, rate 93 No interval abnormalities Q waves V1, V2 No STEMI
--- NOTE | 2024-04-04 16:15 | DI.RAD_ITS ---
Exam(s) XR CHEST 2V PA LATERAL EXAM: XR CHEST 2V PA LATERAL CLINICAL HISTORY: SOB, hypoxia, COPD TECHNIQUE: 2D digital imaging was performed. Two views. COMPARISON: CR,XR XR RIBS LT PA CHEST 3V from 06/25/[address] CHEST WO from 06/28/2021 CR,XR XR RIBS RT W PA LAT CHEST from 08/19/2023 CR XR PORTABLE CHEST AP from 03/27/2024 FINDINGS: HEART: Normal size. Aorta: Not dilated. PULMONARY VASCULATURE: Normal. MEDIASTINUM: Unremarkable. LUNGS: Clear. Hyperinflation. PLEURAL SPACE: No pleural effusion or pneumothorax. BONE:Unremarkable for age. SOFT TISSUES: increased density left chest related to left breast implant. IMPRESSION: COPD. no acute abnormality. DATA REPOSITORY: RADIATION DOSE DELIVERED:
[2024-04-04 16:38] LABS: BE (Venous) 6 mmol/L (-2-3); HCO3 (Venous) 31 mmol/L (23-28); O2 Sat (Venous) 75 %; TCO2 (Venous) 27 mmol/L (24-29); pCO2 (Venous) 48 mmHg (41-51); pH (Venous) 7.41 (7.31-7.41); pO2 (Venous) 41 mmHg
[2024-04-04] MEDS: MAGNESIUM SULFATE 2 GM/50 ML BAG IV_INF (16:39)
[2024-04-04] MEDS: Albuterol/Ipratropium 3 ML UPD VIAL UPD (16:39)
[2024-04-04 16:40] LABS: Abs Immature Grans 0.12 10^3/uL (0.0-0.06); Absolute Basophil Count 0.03 10^3/uL (0.0-0.2); Absolute Monocyte Count 0.61 10^3/uL (0.1-0.8); Basophils % 0.2 %; Eosinophils % 0.2 %; HCT 42.2 % (36.0-46.0); HGB 14.1 g/dL (11.2-15.7); Immature Grans % 0.9 %; Lymphocytes % 25.1 %; MCH 29.1 pg (27.0-33.0); MCHC 33.4 % (32.0-36.0); MCV 87 fL (80-95); MPV 9.1 fL (8.0-11.0); Monocytes % 4.7 %; Neutrophils % 68.9 %; Platelet Count 331 10^3/uL (130-400); RBC 4.85 10^6/uL (3.93-5.22); RDW 13.4 % (11.7-14.6); RDW-SD 42.6 fL; WBC 13.05 10^3/uL (4.4-10.8)
[2024-04-04 16:48] LABS: Absolute Eosinophil Count 0.03 10^3/uL (0.0-0.7); Absolute Lymphocyte Count 3.28 10^3/uL (1.2-3.4); Absolute Neutrophil Count 8.99 10^3/uL (1.2-6.7)
[2024-04-04 16:59] LABS: ALT 93 U/L (14-59); AST 26 U/L (15-37); Albumin 3.4 g/dL (3.4-5.0); Alkaline Phosphatase 65 U/L (46-116); Anion Gap 4.7 mmol/L (3-11); BUN 9 mg/dL (7-18); Bilirubin, Total 0.53 mg/dL (0.2-1.0); CO2 33.3 mmol/L (21.0-32.0); CREATININE 0.7 mg/dL (0.55-1.02); Calcium 9.6 mg/dL (8.5-10.1); Chloride 99 mmol/L (98-107); Estimated GFR 102.71 (mL/min/1.73m2); Glucose 98 mg/dL (74-106); Magnesium 1.2 mg/dL (1.8-2.4); Potassium 4.1 mmol/L (3.5-5.1); Sodium 137 mmol/L (136-145); Total Protein 7.4 g/dL (6.4-8.2); Troponin I 22 ng/L (<or=51)
--- NOTE | 2024-04-04 17:18 | W.ED.GENAD ---
Discharge Plan Disposition Patient Disposition: Admit to [facility] Condition: Stable Discharge Details Chief Complaint: SOB Clinical Impression: Acute exacerbation of chronic obstructive pulmonary disease, Hypomagnesemia, Acute hypoxic respiratory failure Primary Care Provider: Marcel Richardson ED Provider: Jeannine Lou Home Meds and New Rx's Prescriptions: No Action hydrocodone-acetaminophen 5-325 mg Tablet 1 tab PO BID PRN gabapentin 300 mg Capsule 900 mg PO TID Patient Comments: Pt states she has been taking 600 mg BID per per Dr's orders 04/04/24 albuterol sulfate 90 mcg/actuation Hfa Aerosol Inhaler 2 puff INHALATION QID PRN gabapentin [Neurontin] 100 mg capsule 100 mg PO TID Qty: 21 0RF tiotropium bromide [Spiriva with HandiHaler] 18 mcg capsule, w/inhalation device 1 cap INHALATION DAILY Patient Comments: INHALE 1 PUFF BY MOUTH ONCE DAILY cyclobenzaprine 10 mg tablet 10 mg PO TID PRNQty: 15 0RF lidocaine [Lidoderm] 5 % adhesive patch,medicated 1 patch topical DAILY PRNQty: 15 0RF Rx Instructions: leave on most painful area for up to 12 hrs albuterol sulfate 2.5 mg /3 mL (0.083 %) Solution For Nebulization 2.5 mg UPD Q8H PRN (Reason: shortness of breath or wheezing) Qty: 63 0RF ipratropium-albuterol 0.5 mg-3 mg(2.5 mg base)/3 mL Solution For Nebulization 3 ml UPD QID Qty: 90 0RF budesonide-formoterol [Symbicort] 80-4.5 mcg/actuation Hfa Aerosol Inhaler 2 puff inhalation BID Qty: 10.2 0RF doxycycline hyclate 100 mg Capsule 100 mg PO BID Qty: 6 0RF Patient Comments: Pt states she has one dose left 04/04/24 guaifenesin [Mucus Relief ER] 600 mg Tablet Extended Release 12hr 600 mg PO BID Qty: 14 0RF hydroxyzine HCl 25 mg Tablet 25 mg PO TID PRNQty: 10 0RF oseltamivir 75 mg Capsule 75 mg PO BID Qty: 3 0RF prednisone 20 mg tablet See Rx Instructions .ROUTE .COMPLEX Qty: 12 0RF Rx Instructions: Take prednisone 40 mg orally in the morning with food for 4 days Then take 20 mg orally for 4 days then stop. HPI General Mode of arrival: ambulatory. Date/Time Provider Initiated Documentation: 04/04/24 16:10. Limitations to Documentation: no limitations. Information obtained by: patient, family and old records reviewed. HPI Narrative: HPI: This is a 53-year-old female patient with a past medical history significant for COPD and a recent admission to our hospital for hypoxic respiratory failure in the setting of influenza A. She is presenting for worsening shortness of breath. States that she was discharged on Sunday, and felt quite well for the next few days. Yesterday she developed worsening shortness of breath, that did not improve with her home oxygen and nebulizer treatments. She is still taking prednisone, has been prescribed doxycycline which she does not feel helps her as much as the azithromycin has in the past. The patient reports that today she had an episode of shortness of breath after exertion and felt like she was going to . She was noted to be slightly hypoxic on her home O2 at 1 L, turned up to maintain sats greater than 89% given her history of COPD. The patient has not had a fever, has not had chest pain, denies any known sick contacts. The patient reports that she is most concerned for her magnesium being low, as she required numerous intravenous doses for repletion inpatient, states she has been taking her oral repletion as prescribed. Exam: Gen: Awake and alert, in no apparent distress HEENT: Non-icteric sclera Neck: Supple Lungs: Tachypnea appreciated, prolonged expiratory phase, patient with poor air movement throughout, scattered quiet expiratory wheezes intermittently auscultated CV: Appears well perfused, heart with regular rate and rhythm, no murmurs Abdomen: Non-distended MSK: Moves 4 extremities without apparent limitation in ROM Skin: Visualized skin without rashes, cyanosis. Neuro: Normal Gait, no obvious focal deficits or facial asymmetry. Speaks in full, clear sentences. Psych: Appropriate for situation. MDM: This is a 53-year-old female patient presenting for evaluation of shortness of breath. My differential includes but is not limited to COPD exacerbation, certainly considered pneumonia, bronchitis, and new or worsening URI. The patient has no evidence of fluid overload nor history of heart failure to suggest pulmonary edema or pleural effusion. Considered pneumothorax, hypercarbia, metabolic and electrolyte derangements. We will obtain a VBG, CBC, CMP, magnesium, troponin, and repeat a Fluvid. I will obtain a chest x-ray, and provide the patient with a duo nebulizer treatment and 2 g of magnesium. As the patient has already taken 60 mg of prednisone today I will hold on further steroid dosing. ED Course: I reviewed the patient's laboratory studies, which reveals a mild leukocytosis to 13 likely in the setting of steroid use. No anemia or thrombocytopenia. VBG without acidosis or hypercarbia, no electrolyte derangements, kidney injury, or liver disease other than a low magnesium at 1.2 and a slightly elevated ALT to 93. Troponin was negative, and without significant interval change on 1 hour recheck. COVID, influenza, and RSV testing negative. On reassessment the patient has had slight improvement in her air movement, a second 5 mg albuterol nebulizer was administered, and I did monitor the patient here and noted that she developed an increase in her oxygen needs, to 4 L/min by nasal cannula. I did independently interpret her chest x-ray, which shows no focal consolidation suggestive of pneumonia. I reached out to the hospitalist who is graciously accepted this patient for admission to their service for ongoing workup and management of their hypoxic respiratory failure in the setting of COPD exacerbation. I did provide the patient with her home hydroxyzine for some anxiety, as well as a dose of azithromycin for her COPD exacerbation. Transferred to the hospitalist service without incident. Jeannine Lou MD Related Data Home Medications ?Medication ?Instructions ?Recorded ?Confirmed albuterol sulfate 90 mcg/actuation 2 puff inhalation QID PRN 06/25/21 04/04/24 aerosol inhaler gabapentin 300 mg capsule 900 mg PO TID 06/25/21 04/04/24 hydrocodone 5 mg-acetaminophen 325 1 tab PO BID PRN 06/25/21 04/04/24 mg tablet gabapentin 100 mg capsule 100 mg PO TID #21 caps 06/28/21 04/04/24 (Neurontin) cyclobenzaprine 10 mg tablet 10 mg PO TID PRN #15 tabs 08/19/23 04/04/24 tiotropium bromide 18 mcg capsule 1 cap inhalation DAILY 08/19/23 04/04/24 with inhalation device (Spiriva with HandiHaler) lidocaine 5 % topical patch 1 patch topical DAILY PRN #15 ea 08/24/23 04/04/24 (Lidoderm) albuterol sulfate 2.5 mg/3 mL 2.5 mg (3 mL) UPD Q8H PRN 04/01/24 04/04/24 (0.083 %) solution for nebulization shortness of breath or wheezing #63 mL budesonide-formoterol HFA 80 2 puff inhalation BID #10.2 grams 04/01/24 04/04/24 mcg-4.5 mcg/actuation aerosol inhaler (Symbicort) doxycycline hyclate 100 mg capsule 100 mg PO BID #6 caps 04/01/24 04/04/24 guaifenesin 600 mg tablet, 600 mg PO BID #14 tabs 04/01/24 04/04/24 extended release 12 hr (Mucus Relief ER) hydroxyzine HCl 25 mg tablet 25 mg PO TID PRN #10 tabs 04/01/24 04/04/24 ipratropium 0.5 mg-albuterol 3 mg 3 ml UPD QID #90 mL 04/01/24 04/04/24 (2.5 mg base)/3 mL nebulization soln oseltamivir 75 mg capsule 75 mg PO BID #3 caps 04/01/24 04/04/24 prednisone 20 mg tablet See Rx Instructions .Route 04/01/24 04/04/24 .COMPLEX #12 tabs Previous Rx's ?Medication ?Instructions ?Recorded gabapentin 100 mg capsule 100 mg PO TID #21 caps 06/28/21 (Neurontin) cyclobenzaprine 10 mg tablet 10 mg PO TID PRN #15 tabs 08/19/23 lidocaine 5 % topical patch 1 patch topical DAILY PRN #15 ea 08/24/23 (Lidoderm) albuterol sulfate 2.5 mg/3 mL 2.5 mg (3 mL) UPD Q8H PRN 04/01/24 (0.083 %) solution for nebulization shortness of breath or wheezing #63 mL budesonide-formoterol HFA 80 2 puff inhalation BID #10.2 grams 04/01/24 mcg-4.5 mcg/actuation aerosol inhaler (Symbicort) doxycycline hyclate 100 mg capsule 100 mg PO BID #6 caps 04/01/24 guaifenesin 600 mg tablet, 600 mg PO BID #14 tabs 04/01/24 extended release 12 hr (Mucus Relief ER) hydroxyzine HCl 25 mg tablet 25 mg PO TID PRN #10 tabs 04/01/24 ipratropium 0.5 mg-albuterol 3 mg 3 ml UPD QID #90 mL 04/01/24 (2.5 mg base)/3 mL nebulization soln oseltamivir 75 mg capsule 75 mg PO BID #3 caps 04/01/24 prednisone 20 mg tablet See Rx Instructions .Route 04/01/24 .COMPLEX #12 tabs Allergies Allergy/AdvReac Type Severity Reaction Status Date / Time No Known Allergies Allergy Unverified 04/04/24 16:15 General Stated Complaint: SOB KING: 2 Course Vital Signs Vital signs: Vital Signs Temperature 36.5 C 04/04/24 16:09 Pulse 98 H 04/04/24 16:09 Respiratory Rate 20 04/04/24 16:09 Blood Pressure 129/88 04/04/24 16:09 Pulse Oximetry 87 L 04/04/24 16:09 Temperature 36.5 C 04/04/24 16:15 Temperature Source Temporal Artery Scan 04/04/24 16:15 Pulse 95 H 04/04/24 17:10 Pulse 93 H 04/04/24 16:51 Respiratory Rate 20 04/04/24 17:12 Respiratory Effort Short of Breath 04/04/24 17:12 Respiratory Depth Shallow 04/04/24 17:12 Respiratory Pattern Tachypnea 04/04/24 17:12 Blood Pressure 126/93 H 04/04/24 16:51 Blood Pressure Mean 104 04/04/24 16:51 Blood Pressure Position Sitting 04/04/24 16:15 Pulse Oximetry 90 L 04/04/24 17:13 Respiratory End-tidal CO2 32 04/04/24 17:10 Oxygen Delivery Method Nasal Cannula 04/04/24 17:13 Oxygen Flow Rate 2 04/04/24 17:13 Pain Level 0 04/04/24 16:15 Comment MD aware of SpO2 04/04/24 17:10 Lab/Test Results Lab/Test Results: Laboratory Tests Range/Units 04/04/24 16:32 WBC (4.4-10.8) 10^3/uL 13.05 H RBC (3.93-5.22) 10^6/uL 4.85 Hgb (11.2-15.7) g/dL 14.1 Hct (36.0-46.0) % 42.2 MCV (80-95) fL 87 MCH (27.0-33.0) pg 29.1 MCHC (32.0-36.0) % 33.4 RDW (11.7-14.6) % 13.4 Plt Count (130-400) 10^3/uL 331 MPV (8.0-11.0) fL 9.1 Immature Gran % % 0.9 Neutrophils % % 68.9 Lymphocytes % % 25.1 Monocytes % % 4.7 Eosinophils % % 0.2 Basophils % % 0.2 Nucleated RBC % (0.0-0.3) % 0.0 Absolute Neutrophils (1.2-6.7) 10^3/uL 8.99 H Absolute Lymphocytes (1.2-3.4) 10^3/uL 3.28 Absolute Monocytes (0.1-0.8) 10^3/uL 0.61 Absolute Eosinophils (0.0-0.7) 10^3/uL 0.03 Absolute Basophils (0.0-0.2) 10^3/uL 0.03 VBG pH (7.31-7.41) 7.41 VBG pCO2 (41-51) mmHg 48 VBG pO2 mmHg 41 VBG HCO3 (23-28) mmol/L 31 H VBG Total CO2 (24-29) mmol/L 27 VBG O2 Saturation % 75 VBG Base Excess (-2-3) mmol/L 6 H Sodium (136-145) mmol/L 137 Potassium (3.5-5.1) mmol/L 4.1 Chloride (98-107) mmol/L 99 Carbon Dioxide (21.0-32.0) mmol/L 33.3 H Anion Gap (3-11) mmol/L 4.7 BUN (7-18) mg/dL 9 Creatinine (0.55-1.02) mg/dL 0.7 Est GFR (CKD-EPI 2020) (mL/min/1.73m2) 102.71 Glucose (74-106) mg/dL 98 Calcium (8.5-10.1) mg/dL 9.6 Magnesium (1.8-2.4) mg/dL 1.2 L Total Bilirubin (0.2-1.0) mg/dL 0.53 AST (15-37) U/L 26 ALT (14-59) U/L 93 H Alkaline Phosphatase (46-116) U/L 65 Troponin I (<or=51) ng/L 22 Total Protein (6.4-8.2) g/dL 7.4 Albumin (3.4-5.0) g/dL 3.4 Medical Decision Making Quality:SDOH Health Related Social Needs: No Data to Display Critical Care Time Critical Care Time Critical Care Time: Yes Total Critical Care Time: 45 Attestation: Upon my evaluation, this patient had a high probability of imminent or life-threatening deterioration due to hypoxic respiratory failure due to COPD exacerbation, which required my direct attention, intervention, and personal management. I have personally provided 45 minutes of critical care time exclusive of time spent on separately billable procedures. Time includes review of laboratory data, radiology results, discussion with consultants, and monitoring for potential decompensation. Interventions were performed as documented above. Jeannine Lou MD [facility] All Active Problems (Updated 04/04/24 @ 19:59 by Jeannine Lou MD) Acute hypoxic respiratory failure (Acute) Hypomagnesemia (Acute) Influenza A (Acute) Nicotine dependence (Acute) Acute exacerbation of chronic obstructive pulmonary disease (Acute) Medical History Acute hypoxic respiratory failure Arthritis Surgical History History of section History of cholecystectomy Social History Smoking/Tobacco Use Status: Current every day Tobacco Type: cigarettes Smoking packs per day: 1.5 Smoking cigarettes per day: 30.0 Years smoked: 30 Smoking pack-years: 45.00 Tobacco: How many years used: 30 Smoking risk assessment performed?: Yes Alcohol Intake: never Drug use: Never Housing: house Do you feel safe at home: Yes Do you feel safe in your relationship?: Yes
[2024-04-04] MEDS: Albuterol 2.5 MG/3 ML INH SOLN VIAL 5 MG UPD (17:34)
[2024-04-04 17:41] LABS: COVID-19 PCR Negative (Negative); Influenza A PCR Negative (Negative); Influenza B PCR Negative (Negative); RSV PCR Negative (Negative)
[2024-04-04 17:42] LABS: Source NASOPHARYNX
[2024-04-04 17:50] LABS: Troponin I 36 ng/L (<or=51)
[2024-04-04] MEDS: hydrOXYzine HCL 25 MG TAB PO (19:18)
[2024-04-04] MEDS: Azithromycin 250 MG TAB 500 MG PO (19:18)
--- NOTE | 2024-04-04 19:48 | HPE_ITS ---
Date of service: 04/04/24 Time of Service: 19:48 Assessment and Plan Assessment and plan (1) Acute exacerbation of chronic obstructive pulmonary disease: Status: Acute Assessment and plan: COPD. I don't see any new issues, I think this is a continuation of recent illness and probably she just needs a more intense program, and slower steroid taper. Possible also the hypomag is producing some restrictive defect from chest wall weakness. COPD: full dose steroids, with plan for slow taper; scheduled and prn updrafts. Not sure antibiotics are required here Hypomag: I don't see other electrolyte deficiencies. Unclear if this is dietary or otherwise related to her reported eating disorder, or part of some wasting disorder. For now will continue supplements and trend levels. History of Present Illness History of Present Illness Chief Complaint: SOB Narrative: 53 yo female smoker (recently quit), here last week with flu and newly diagnosed COPD. S/P course Tamiflu and home on tapering steroids, along with uppdrafts and home O2. States she had been doing well, but today got more SOB and noted O2 sats dipping into high 80s (from low 90s). Here in ER findings of note for diminsihed BS with wheezing; whiote count 13 (on Prednisone) and negative CXR. Mg 1.2 (has chronic hypomag, reports she has an eating disorder). Given updrafts, Mg SO4 and Zithro 500. States she feels much better, though notably she still has 5L oxygen requirement for sats low 90s. I was asked to evaluate for admission. Review of Systems Narrative: per HPI PFSH All Active Problems (Updated 04/04/24 @ 19:59 by Jeannine Lou MD) Acute hypoxic respiratory failure (Acute) Hypomagnesemia (Acute) Influenza A (Acute) Nicotine dependence (Acute) Acute exacerbation of chronic obstructive pulmonary disease (Acute) Medical History Acute hypoxic respiratory failure Arthritis Surgical History History of section History of cholecystectomy Social History Smoking/Tobacco Use Status: Current every day Tobacco Type: cigarettes Smoking packs per day: 1.5 Smoking cigarettes per day: 30.0 Years smoked: 30 Smoking pack-years: 45.00 Tobacco: How many years used: 30 Smoking risk assessment performed?: Yes Alcohol Intake: never Drug use: Never Housing: house Do you feel safe at home: Yes Do you feel safe in your relationship?: Yes Meds Allergies and Home Medications Allergies Allergy/AdvReac Type Severity Reaction Status Date / Time No Known Allergies Allergy Unverified 04/04/24 16:15 Home Medications ?Medication ?Instructions ?Recorded ?Confirmed ?Type albuterol sulfate 90 mcg/actuation 2 puff inhalation QID PRN 06/25/21 04/04/24 History aerosol inhaler gabapentin 300 mg capsule 900 mg PO TID 06/25/21 04/04/24 History hydrocodone 5 mg-acetaminophen 325 1 tab PO BID PRN 06/25/21 04/04/24 History mg tablet gabapentin 100 mg capsule 100 mg PO TID #21 caps 06/28/21 04/04/24 Rx (Neurontin) cyclobenzaprine 10 mg tablet 10 mg PO TID PRN #15 tabs 08/19/23 04/04/24 Rx tiotropium bromide 18 mcg capsule 1 cap inhalation DAILY 08/19/23 04/04/24 History with inhalation device (Spiriva with HandiHaler) lidocaine 5 % topical patch 1 patch topical DAILY PRN #15 ea 08/24/23 04/04/24 Rx (Lidoderm) albuterol sulfate 2.5 mg/3 mL 2.5 mg (3 mL) UPD Q8H PRN 04/01/24 04/04/24 Rx (0.083 %) solution for nebulization shortness of breath or wheezing #63 mL budesonide-formoterol HFA 80 2 puff inhalation BID #10.2 grams 04/01/24 04/04/24 Rx mcg-4.5 mcg/actuation aerosol inhaler (Symbicort) doxycycline hyclate 100 mg capsule 100 mg PO BID #6 caps 04/01/24 04/04/24 Rx guaifenesin 600 mg tablet, 600 mg PO BID #14 tabs 04/01/24 04/04/24 Rx extended release 12 hr (Mucus Relief ER) hydroxyzine HCl 25 mg tablet 25 mg PO TID PRN #10 tabs 04/01/24 04/04/24 Rx ipratropium 0.5 mg-albuterol 3 mg 3 ml UPD QID #90 mL 04/01/24 04/04/24 Rx (2.5 mg base)/3 mL nebulization soln oseltamivir 75 mg capsule 75 mg PO BID #3 caps 04/01/24 04/04/24 Rx prednisone 20 mg tablet See Rx Instructions .Route 04/01/24 04/04/24 Rx .COMPLEX #12 tabs Exam Narrative Exam Narrative: 126/81, 97, 36.5, 20, 93% (5LNC). HEENT unremarkable; neck supple; lungs diminished BS, diffuse soft wheeze; heart RRR; abdomen soft and NT; extremities w/o edema; neuro Ox3, moves all 4s Results Labs 04/04/24 16:32 04/04/24 16:32 Labs: Laboratory Results - last 24 hr 04/04/24 04/04/24 04/04/24 16:32 16:38 17:25 WBC 13.05 H RBC 4.85 Hgb 14.1 Hct 42.2 MCV 87 MCH 29.1 MCHC 33.4 RDW 13.4 Plt Count 331 MPV 9.1 Immature Gran % 0.9 Neutrophils % 68.9 Lymphocytes % 25.1 Monocytes % 4.7 Eosinophils % 0.2 Basophils % 0.2 Nucleated RBC % 0.0 Absolute Neutrophils 8.99 H Absolute Lymphocytes 3.28 Absolute Monocytes 0.61 Absolute Eosinophils 0.03 Absolute Basophils 0.03 VBG pH 7.41 VBG pCO2 48 VBG pO2 41 VBG HCO3 31 H VBG Total CO2 27 VBG O2 Saturation 75 VBG Base Excess 6 H Sodium 137 Potassium 4.1 Chloride 99 Carbon Dioxide 33.3 H Anion Gap 4.7 BUN 9 Creatinine 0.7 Est GFR (CKD-EPI 2020) 102.71 Glucose 98 Calcium 9.6 Magnesium 1.2 L Total Bilirubin 0.53 AST 26 ALT 93 H Alkaline Phosphatase 65 Troponin I 22 36 Total Protein 7.4 Albumin 3.4 COVID-19 Source NASOPHARYNX SARS-CoV-2 (PCR) Negative Influenza Type A (PCR) Negative Influenza Type B (PCR) Negative RSV (PCR) Negative 04/04/24 19:27 WBC RBC Hgb Hct MCV MCH MCHC RDW Plt Count MPV Immature Gran % Neutrophils % Lymphocytes % Monocytes % Eosinophils % Basophils % Nucleated RBC % Absolute Neutrophils Absolute Lymphocytes Absolute Monocytes Absolute Eosinophils Absolute Basophils VBG pH VBG pCO2 VBG pO2 VBG HCO3 VBG Total CO2 VBG O2 Saturation VBG Base Excess Sodium Potassium Chloride Carbon Dioxide Anion Gap BUN Creatinine Est GFR (CKD-EPI 2020) Glucose Calcium Magnesium Total Bilirubin AST ALT Alkaline Phosphatase Troponin I Cancelled Total Protein Albumin COVID-19 Source SARS-CoV-2 (PCR) Influenza Type A (PCR) Influenza Type B (PCR) RSV (PCR) Last Vital Signs Temp 36.5 C 04/04/24 16:15 Pulse 97 H 04/04/24 19:40 Resp 20 04/04/24 19:40 BP 126/81 04/04/24 19:17 Pulse Ox 93 04/04/24 19:40 Time Spent Time spent with Patient: 40-54 minutes Time was spent: preparing to see the patient(eg.review tests), obtaining and/or reviewing separately otained hiistory, ordering medications,tests, procedures, referring, communicating with other health assistant child care teacher and indepentently interpreting results
--- NOTE | 2024-04-04 21:19 | W.PC.ACHO ---
Registration Status: Primary Language: Preferred Language: ED Information & Data Chief Complaint SOB 04/04/24 17:20 Triage Note recent admission for Flu-A. 04/04/24 16:09 also dx with COPD and sent home with supplemental oxygen. now feels like she can't catch her breath, especially with activity. had received magnesium and feels she needs more. denies CP. poor PO intake. Medical / Surgical History (Last Reviewed 04/04/24 @ 19:55 by Rohit Gilman MD) Acute hypoxic respiratory failure Arthritis (Last Reviewed 04/04/24 @ 19:55 by Rohit Gilman MD) History of section History of cholecystectomy Most Recent Vital Signs Temperature 36.5 C 04/04/24 16:15 Temperature Source Temporal Artery Scan 04/04/24 16:15 Pulse 82 04/04/24 21:10 Pulse 82 04/04/24 21:10 Respiratory Rate 17 04/04/24 21:10 Respiratory Effort Short of Breath 04/04/24 17:12 Respiratory Depth Shallow 04/04/24 17:12 Respiratory Pattern Tachypnea 04/04/24 17:12 Blood Pressure 126/81 04/04/24 19:17 Blood Pressure Mean 95 04/04/24 19:17 Blood Pressure Position Sitting 04/04/24 16:15 Pulse Oximetry 95 04/04/24 21:10 Respiratory End-tidal CO2 31 04/04/24 21:10 Oxygen Delivery Method Nasal Cannula 04/04/24 19:00 Oxygen Flow Rate 4 04/04/24 19:00 Pain Level 0 04/04/24 16:15 Comment MD aware of SpO2 04/04/24 17:10 Allergies No Known Allergies Allergy (Unverified 04/04/24 16:15) Active Medications Generic Name Dose Route Start Last Admin Trade Name Freq PRN Reason Stop Dose Admin Sodium Chloride 0 ml 04/04/24 20:00 04/04/24 20:02 Normal Saline Flush 10 Ml Syr IVP Not Given BID QUINTEN IV IV Catheter Type [Right Saline Lock Antecubital] IV Catheter Gauge [Right 18 Antecubital] Diet Orders Category Date Time Status Regular/Normal [DIET] Nutrition 04/05/24 Breakfast Ordered Diagnostics 04/04/24 04/04/24 04/04/24 Range/Units 19:27 17:25 16:38 WBC (4.4-10.8) 10^3/uL RBC (3.93-5.22) 10^6/uL Hgb (11.2-15.7) g/dL Hct (36.0-46.0) % MCV (80-95) fL MCH (27.0-33.0) pg MCHC (32.0-36.0) % RDW (11.7-14.6) % Plt Count (130-400) 10^3/uL MPV (8.0-11.0) fL Immature Gran % % Neutrophils % % Lymphocytes % % Monocytes % % Eosinophils % % Basophils % % Nucleated RBC % (0.0-0.3) % Absolute Neutrophils (1.2-6.7) 10^3/uL Absolute Lymphocytes (1.2-3.4) 10^3/uL Absolute Monocytes (0.1-0.8) 10^3/uL Absolute Eosinophils (0.0-0.7) 10^3/uL Absolute Basophils (0.0-0.2) 10^3/uL VBG pH (7.31-7.41) VBG pCO2 (41-51) mmHg VBG pO2 mmHg VBG HCO3 (23-28) mmol/L VBG Total CO2 (24-29) mmol/L VBG O2 Saturation % VBG Base Excess (-2-3) mmol/L Sodium (136-145) mmol/L Potassium (3.5-5.1) mmol/L Chloride (98-107) mmol/L Carbon Dioxide (21.0-32.0) mmol/L Anion Gap (3-11) mmol/L BUN (7-18) mg/dL Creatinine (0.55-1.02) mg/dL Est GFR (CKD-EPI 2020) (mL/min/1.73m2) Glucose (74-106) mg/dL Calcium (8.5-10.1) mg/dL Magnesium (1.8-2.4) mg/dL Total Bilirubin (0.2-1.0) mg/dL AST (15-37) U/L ALT (14-59) U/L Alkaline Phosphatase (46-116) U/L Troponin I Cancelled 36 (<or=51) ng/L Total Protein (6.4-8.2) g/dL Albumin (3.4-5.0) g/dL COVID-19 Source NASOPHARYNX SARS-CoV-2 (PCR) Negative (Negative) Influenza Type A (PCR) Negative (Negative) Influenza Type B (PCR) Negative (Negative) RSV (PCR) Negative (Negative) 04/04/24 Range/Units 16:32 WBC 13.05 H (4.4-10.8) 10^3/uL RBC 4.85 (3.93-5.22) 10^6/uL Hgb 14.1 (11.2-15.7) g/dL Hct 42.2 (36.0-46.0) % MCV 87 (80-95) fL MCH 29.1 (27.0-33.0) pg MCHC 33.4 (32.0-36.0) % RDW 13.4 (11.7-14.6) % Plt Count 331 (130-400) 10^3/uL MPV 9.1 (8.0-11.0) fL Immature Gran % 0.9 % Neutrophils % 68.9 % Lymphocytes % 25.1 % Monocytes % 4.7 % Eosinophils % 0.2 % Basophils % 0.2 % Nucleated RBC % 0.0 (0.0-0.3) % Absolute Neutrophils 8.99 H (1.2-6.7) 10^3/uL Absolute Lymphocytes 3.28 (1.2-3.4) 10^3/uL Absolute Monocytes 0.61 (0.1-0.8) 10^3/uL Absolute Eosinophils 0.03 (0.0-0.7) 10^3/uL Absolute Basophils 0.03 (0.0-0.2) 10^3/uL VBG pH 7.41 (7.31-7.41) VBG pCO2 48 (41-51) mmHg VBG pO2 41 mmHg VBG HCO3 31 H (23-28) mmol/L VBG Total CO2 27 (24-29) mmol/L VBG O2 Saturation 75 % VBG Base Excess 6 H (-2-3) mmol/L Sodium 137 (136-145) mmol/L Potassium 4.1 (3.5-5.1) mmol/L Chloride 99 (98-107) mmol/L Carbon Dioxide 33.3 H (21.0-32.0) mmol/L Anion Gap 4.7 (3-11) mmol/L BUN 9 (7-18) mg/dL Creatinine 0.7 (0.55-1.02) mg/dL Est GFR (CKD-EPI 2020) 102.71 (mL/min/1.73m2) Glucose 98 (74-106) mg/dL Calcium 9.6 (8.5-10.1) mg/dL Magnesium 1.2 L (1.8-2.4) mg/dL Total Bilirubin 0.53 (0.2-1.0) mg/dL AST 26 (15-37) U/L ALT 93 H (14-59) U/L Alkaline Phosphatase 65 (46-116) U/L Troponin I 22 (<or=51) ng/L Total Protein 7.4 (6.4-8.2) g/dL Albumin 3.4 (3.4-5.0) g/dL COVID-19 Source SARS-CoV-2 (PCR) (Negative) Influenza Type A (PCR) (Negative) Influenza Type B (PCR) (Negative) RSV (PCR) (Negative) Intake and Output - 24 Hour Total 04/04/24 16:08 thru 04/04/24 17:12 Intake Total 60 Balance 60 Weight 56.245 kg Intake: IV 60 Falls Risk Assessment History of Falls No History 04/04/24 16:33 Contributing Factors No Factors 04/04/24 16:33 Ambulatory Aids Independent 04/04/24 16:33 Tubes/Lines W/no contributing factors 04/04/24 16:33 Gait Evaluation No gait disturbance 04/04/24 16:33 Cognition No cognitive impairment 04/04/24 16:33 Fall Total Score 10 04/04/24 16:33 Level of Risk Standard/Low Risk 04/04/24 16:33 Problems (Last Reviewed 04/04/24 @ 19:55 by Rohit Gilman MD) Acute exacerbation of chronic obstructive pulmonary disease (Acute) v v v v v v v v v Sending and/or Receiving Nurses: Please use comment section below to note any information pertinent to the patient hand-off not included above. Information / Comments: Azithromycin, mag given in ED. 18 gLAC, 4L of O2 Report received from: Holly BLAIR RN
[2024-04-04] MEDS: Ibuprofen 600 MG TAB PO (21:22)
[2024-04-04] MEDS: Gabapentin 300 MG CAP 900 MG PO (22:17)
[2024-04-04] MEDS: methylPREDNISolone SUCC 40 MG VIAL IVP (22:17)
[2024-04-04] MEDS: Melatonin 3 MG TAB 6 MG PO (22:17)
[2024-04-05] VITALS (9 sets, daily range): BP systolic 108–110; BP diastolic 47–80; PULSE 55–104; RESP 2–18; TEMP 36.7–37.2; O2SAT 89–98
[2024-04-05] MEDS: Albuterol/Ipratropium 3 ML UPD VIAL UPD ×3 (00:16→13:48)
[2024-04-05] MEDS: methylPREDNISolone SUCC 40 MG VIAL IVP ×2 (05:35→14:29)
[2024-04-05 07:28] LABS: Magnesium 1.7 mg/dL (1.8-2.4)
[2024-04-05] MEDS: Gabapentin 300 MG CAP 900 MG PO ×2 (08:43→14:30)
[2024-04-05] MEDS: Magnesium Oxide 400 MG TAB PO (08:43)
[2024-04-05] MEDS: Normal Saline Flush 10 ML SYR IVP (08:43)
[2024-04-05] MEDS: Gabapentin 100 MG CAP PO ×2 (08:43→14:30)
[2024-04-05] MEDS: guaiFENesin 600 MG TABCR PO (08:43)
[2024-04-05] MEDS: Budesonide/Formoterol 80/4.5 6.9 GM 60 PUFF INH IH (09:32)
--- NOTE | 2024-04-05 09:57 | W.PM.PROGNOT ---
Date of Service Date of service: 04/05/24 Time of Service: 09:57 Assessment and Plan Assessment and plan (1) Acute hypoxic respiratory failure: Status: Acute Assessment and plan: In the setting of recent influenza, with history of tobacco use disorder Continue weaning oxygen as able (2) Acute exacerbation of chronic obstructive pulmonary disease: Status: Acute Assessment and plan: History of [id number] smoking without official COPD diagnostic testing results Methylprednisolone IV Q8H, taper (3) Nicotine dependence: Status: Acute Assessment and plan: Ongoing PRN nicotine patch (4) Influenza A: Status: Acute Assessment and plan: treated with Tamiflu (5) Hypomagnesemia: Status: Acute Assessment and plan: Resolved (6) On deep vein thrombosis (DVT) prophylaxis: Status: Acute Assessment and plan: Continue LMWH (7) Discharge planning issues: Status: Acute Assessment and plan: Discharge home when medically cleared Might have new O2 needs Discussed with Dr. Alvarez Subjective Subjective Patient reports: shortness of breath and afebrile Exam Narrative Exam Narrative: thin female, acutely ill appearing, in no distress. Head is atraumatic eyes nonicteric noninjected neck full range of motion no meningeal signs respirations even and unlabored scattered coarse breath sounds throughout no wheeze cardiovascular regular rate and rhythm good pulses well-perfused skin is pale warm and dry abdomen flat nontender moves extremities equally no peripheral edema neurologic awake alert oriented no focal deficits psychiatric appropriate mood and affect Objective Last Vital Signs Temp 37.2 C 04/05/24 07:45 Pulse 93 H 04/05/24 07:45 Resp 18 04/05/24 07:45 BP 110/80 04/05/24 07:45 Pulse Ox 91 L 04/05/24 07:45 Laboratory Results - last 24 hr 04/04/24 04/04/24 04/04/24 16:32 16:38 17:25 WBC 13.05 H RBC 4.85 Hgb 14.1 Hct 42.2 MCV 87 MCH 29.1 MCHC 33.4 RDW 13.4 Plt Count 331 MPV 9.1 Immature Gran % 0.9 Neutrophils % 68.9 Lymphocytes % 25.1 Monocytes % 4.7 Eosinophils % 0.2 Basophils % 0.2 Nucleated RBC % 0.0 Absolute Neutrophils 8.99 H Absolute Lymphocytes 3.28 Absolute Monocytes 0.61 Absolute Eosinophils 0.03 Absolute Basophils 0.03 VBG pH 7.41 VBG pCO2 48 VBG pO2 41 VBG HCO3 31 H VBG Total CO2 27 VBG O2 Saturation 75 VBG Base Excess 6 H Sodium 137 Potassium 4.1 Chloride 99 Carbon Dioxide 33.3 H Anion Gap 4.7 BUN 9 Creatinine 0.7 Est GFR (CKD-EPI 2020) 102.71 Glucose 98 Calcium 9.6 Magnesium 1.2 L Total Bilirubin 0.53 AST 26 ALT 93 H Alkaline Phosphatase 65 Troponin I 22 36 Total Protein 7.4 Albumin 3.4 COVID-19 Source NASOPHARYNX SARS-CoV-2 (PCR) Negative Influenza Type A (PCR) Negative Influenza Type B (PCR) Negative RSV (PCR) Negative 04/04/24 04/05/24 19:27 06:46 WBC RBC Hgb Hct MCV MCH MCHC RDW Plt Count MPV Immature Gran % Neutrophils % Lymphocytes % Monocytes % Eosinophils % Basophils % Nucleated RBC % Absolute Neutrophils Absolute Lymphocytes Absolute Monocytes Absolute Eosinophils Absolute Basophils VBG pH VBG pCO2 VBG pO2 VBG HCO3 VBG Total CO2 VBG O2 Saturation VBG Base Excess Sodium Potassium Chloride Carbon Dioxide Anion Gap BUN Creatinine Est GFR (CKD-EPI 2020) Glucose Calcium Magnesium 1.7 L Total Bilirubin AST ALT Alkaline Phosphatase Troponin I Cancelled Total Protein Albumin COVID-19 Source SARS-CoV-2 (PCR) Influenza Type A (PCR) Influenza Type B (PCR) RSV (PCR)
--- NOTE | 2024-04-05 10:06 | PDOC.CMIN ---
Date of service: 04/05/24 Time of Service: 10:06 Care Management Initial Assmt Initial Assessment Reason for Hospitalization: COPD Exacerbation Functional Status/Living Situation Patient Presentation: Ellen was admitted on 04/04/24 with a COPD exacerbation. She was hospitalized from 03/27/24 to 04/01/24 with respiratory failure and Influenza. She was discharged home on 1 L/min of nasal oxygen. She reported that she became very shaky and anxious at home however her oxygen saturation remained in the 90. She contacted her PCP who declined to see her so she sought medical care in the ED. Ellen had not seen her PCP since discharge but has an appointment on early April. Ellen was treated overnight with steroids and supplemental oxygen and felt much better this morning. She was also given a dose of hydroxyzine which was effective. Ellen will be discharged home to resume her steroid taper and home oxygen and will be given a small prescription for hydroxxyzine to help with the anxiety. Town of Residence: [place], [place] Resides with: Spouse ( Hussein) Significant Other/Family: [employer] Employment Status: Employed Instrumental Activities of Daily Living (ADLs): Independent Medications Medication Management: No Issues/Barriers identified Advance Directives Advance Directives: Do you have an Advance Directive: N 03/27/24 12:30 AD On File at [facility]: N 05/10/12 17:32 Date Asked 04/04/24 04/04/24 16:09 AD Date Reviewed 04/04/24 04/04/24 21:38 COLST On File at [facility] No 04/04/24 16:34 COLST Date Scanned Code Status Resuscitation Status Full Code Insurance Coverage/Financial Issues Insurance: Medicaid Care Team Visit Care Team Role Provider Type Marcel Richardson Primary Care Provider NON-[facility] STAFF PHYSICIAN Jeannine Lou MD Emergency Provider [facility] STAFF PHYSICIAN Rohit Gilman MD Admit Provider [facility] STAFF PHYSICIAN Attending Provider Discharge Potential Discharge Needs: PCP F/U Appt Anticipated Barriers to Discharge: None Identified Patient/Family Education Needs: Review discharge instructions, discuss Ask Me Three Transportation: Private vehicle Plan: Anticipate Ellen will be discharged with a resumption of home health services for PT. She will follow up with her community providers and plan of care and transport with family. CM will follow. Social Determinants of Health Screening Social Determinants of Health last assessed: 04/05/24 Will the Patient Participate in the Screening?: Yes Do you worry about having a steady place to live?: yes What is your living situation today?: I have housing today, but am worried about losing it Problems where you live: no known problems In the past 12 months, have you had to go without electric, gas, oil or water in your home?: no Have you or anyone in your house had to go without enough food to eat?: no Has lack of transportation kept you from medical appointments or from doing things needed for daily living?: no Has anyone in your life made you feel unsafe or unsupported?: no How hard is it for you to pay for the very basics like food, housing, medical care, and heating? Would you say it is:: Not hard at all Do you want help finding or keeping work or a job?: I do not need or want help If for any reason you need help with day-to-day activities such as bathing, preparing meals, shopping, managing finances, etc., do you get the help you need?: I don?t need any help How often do you feel lonely or isolated from those around you?: Rarely Do you speak a language other than Hungarian at home?: No Health Related Social Needs Health related social needs: housing instability, housed, with risk of homelessness (Z59.811) and feeling lonely/isolated (Z60.8) [facility] All Active Problems (Updated 04/05/24 @ 13:51 by Tess Fried NP) Acute hypoxic respiratory failure (Acute) Discharge planning issues (Acute) Acute hypoxic respiratory failure (Acute) On deep vein thrombosis (DVT) prophylaxis (Acute) Hypomagnesemia (Acute) Influenza A (Acute) Nicotine dependence (Acute) Medical History Acute hypoxic respiratory failure Arthritis Surgical History History of section History of cholecystectomy Social History Smoking/Tobacco Use Status: Current every day Tobacco Type: cigarettes Smoking packs per day: 1.5 Smoking cigarettes per day: 30.0 Years smoked: 30 Smoking pack-years: 45.00 Tobacco: How many years used: 30 Smoking risk assessment performed?: Yes Alcohol Intake: never Drug use: Never Housing: house Do you feel safe at home: Yes Do you feel safe in your relationship?: Yes Readmission Within the Past 30 Days Yes or No: Yes Date of First Admission Date of 1st Admission: 03/27/24 Date of this Admission Date of Admission: 04/04/24 This admission was: Through ED Office Visit Since 1st Admission Have you seen your PCP in the office since discharge?: No Had an appointment Been Scheduled?: Yes I. Interview patient and/or Family Difficulty reaching your doctor or getting an office appt?: Yes Have you had trouble purchasing/ or taking medication?: No Have you had trouble with getting meals at home?: No Did you feel ready for discharge when you left the last time: Yes Were services received that you thought were set up on disch: Yes What services were received?: home health PT Did you call your physician beore you came to the ED?: Yes Did your physician tell you to come in?: No If the patient had a VNA ordered Did the patient have a VNA order?: Yes Did you call the VNA before you came?: No Assessment for Readmission Summary of readmission circumstances, based upon interviews: Patient discharged home 3 days prior to readmission. Was doing well but became shaky and anxious and subsequently felt dyspneic. Contacted PCP who declined to see her so she sought medical care at [facility] ED.
[2024-04-05] MEDS: hydrOXYzine HCL 25 MG TAB PO (10:27)
--- NOTE | 2024-04-05 13:51 | DSE_ITS ---
Date of service: 04/05/24 Time of Service: 13:51 DS: Diagnosis Discharge Diagnosis (1) Acute hypoxic respiratory failure: Status: Acute Asessment and Plan: on baseline oxygen with no increased requirements. (2) Acute exacerbation of chronic obstructive pulmonary disease: Status: Ruled-out Asessment and Plan: no acute exacerbation continue to wean steroids (3) Nicotine dependence: Status: Acute (4) Influenza A: Status: Acute Asessment and Plan: treated with tamiflu (5) Hypomagnesemia: Status: Acute Discharge Plan Disposition Patient Disposition: Home Condition: Improving Discharge Details Reason For Visit: COPD Admit Date/Time: 04/04/24 20:03 Admit Provider: Rohit Gliman Attending Provider: Rohit Gilman Primary Care Provider: Marcel Richardson Hospital Course Hospital Course: This is a 53-year-old female patient with history of tobacco abuse recently hospitalized for acute hypoxic respiratory failure secondary to influenza with suspected COPD. She was qualified for home oxygen and discharged home on a steroid taper. She had no evidence of pneumonia by x-ray. Also found to be hypomagnesemic with a magnesium level of 1.2, improved to 1.6 after repletion. she states she was on magnesium supplementation but has stopped for some unknown reason. She was experiencing significant anxiety and did receive hydroxyzine while hospitalized with a small prescription at discharge. She reports that her oxygen sats were maintained in the 90s on room air but she is felt extremely short of breath and anxious so presented here to the emergency department. In the emergency department there was no evidence of COPD exacerbation or new hypoxic respiratory failure. she was placed on high dose steroids and admitted to hospitalist services. overnight no significant change in her symptoms, oxygenating well, anxiety responding to hydroxyzine, no fever, no cough, shortness of breath with activity which was ongoing and improving since discharge. she is being discharged home to continue weaning steriods, oxygen as directed, and follow up with pcp to discuss anxiety treatment. pcp list provided. discussed with Dr Alvarez Home Meds and New Rx's Prescriptions: New azithromycin 250 mg tablet 250 mg PO DAILY 3 Days Qty: 3 0RF Rx Instructions: start on day 2 of therapy levalbuterol HCl 0.63 mg/3 mL solution for nebulization 0.63 mg inhalation ONCE Qty: 72 0RF Continued hydroxyzine HCl 25 mg Tablet 25 mg PO TID PRNQty: 20 0RF hydrocodone-acetaminophen 5-325 mg Tablet 1 tab PO BID PRN gabapentin 300 mg Capsule 900 mg PO TID Patient Comments: Pt states she has been taking 600 mg BID per per Dr's orders 04/04/24 albuterol sulfate 90 mcg/actuation Hfa Aerosol Inhaler 2 puff INHALATION QID PRN tiotropium bromide [Spiriva with HandiHaler] 18 mcg capsule, w/inhalation device 1 cap INHALATION DAILY Patient Comments: INHALE 1 PUFF BY MOUTH ONCE DAILY albuterol sulfate 2.5 mg /3 mL (0.083 %) Solution For Nebulization 2.5 mg UPD Q8H PRN (Reason: shortness of breath or wheezing) Qty: 63 0RF ipratropium-albuterol 0.5 mg-3 mg(2.5 mg base)/3 mL Solution For Nebulization 3 ml UPD QID Qty: 90 0RF budesonide-formoterol [Symbicort] 80-4.5 mcg/actuation Hfa Aerosol Inhaler 2 puff inhalation BID Qty: 10.2 0RF guaifenesin [Mucus Relief ER] 600 mg Tablet Extended Release 12hr 600 mg PO BID Qty: 14 0RF prednisone 20 mg tablet See Rx Instructions .ROUTE .COMPLEX Qty: 12 0RF Rx Instructions: Take prednisone 40 mg orally in the morning with food for 4 days Then take 20 mg orally for 4 days then stop. Discontinued cyclobenzaprine 10 mg tablet 10 mg PO TID PRNQty: 15 0RF doxycycline hyclate 100 mg Capsule 100 mg PO BID Qty: 6 0RF Patient Comments: Pt states she has one dose left 04/04/24 Discharge Instructions Instructions: Hypomagnesemia Additional Instructions: continue tapering steroids: take 4 tabs for next 3 days, then 3 tabs for 3 days, then 2 tabs for 3 days, then 1 tab for 3 days, then 1/2 tab for 3 days then stop resume taking magnesium supplementation discuss your anxiety and options to treat with your primary care provider at your follow up appointment do not take the hydroxyzine until you have completed the course of azithromycin as you can experience delay in heart conduction Stand Alone Forms: Nursing Discharge Form Referrals: Marcel Richardson [Primary Care Provider] - (keep follow up appointment, you've been given list of primary care providers to establish with if you decide to change.) Activity:: Activity as Tolerated Equipment/Supplies:: No Equipment Needed Diet:: As Tolerated Discharge Orders Discharge Orders: Discharge Order (Routine); Ordered 04/05/24 Ordered By: Tess Fried DS: Summary Time Spent with Patient providing and/or coordinating discharge services: Greater than 30 minutes Status at Discharge Functional status at discharge: independent ambulation Overall status at discharge: patient is progressing back to baseline Mental Status: mental status grossly normal Speech and Movement: speech and movement normal Mood: congruent mood Affect: normal affect Quality:SDOH Health Related Social Needs: Health related social needs housing instability, house d, with risk of homelessness (Z59.811), feeling lonely/isolated (Z60.8) Exam Narrative Exam Narrative: thin female, acutely ill appearing, in no distress. Head is atraumatic eyes nonicteric noninjected neck full range of motion no meningeal signs respirations even and unlabored scattered coarse breath sounds throughout no wheeze cardiovascular regular rate and rhythm good pulses well-perfused skin is pale warm and dry abdomen flat nontender moves extremities equally no peripheral edema neurologic awake alert oriented no focal deficits psychiatric appropriate mood and affect Psych Mental Status: mental status grossly normal Speech and Movement: speech and movement normal Mood: congruent mood Affect: normal affect DS: Data Vitals/I&O Vitals and I&O: Vital Signs Temperature 37.2 C 04/05/24 07:45 Temperature Source Temporal Artery Scan 04/05/24 07:45 Pulse 93 H 04/05/24 07:45 Pulse 91 H 04/04/24 21:20 Respiratory Rate 18 04/05/24 07:45 Respiratory Effort Normal 04/04/24 21:44 Respiratory Depth Normal 04/04/24 21:44 Respiratory Pattern Normal 04/04/24 21:44 Blood Pressure 110/80 04/05/24 07:45 Blood Pressure Mean 93 04/04/24 21:20 Blood Pressure Position Sitting 04/04/24 16:15 Pulse Oximetry 91 L 04/05/24 07:45 Respiratory End-tidal CO2 29 04/04/24 21:20 Oxygen Delivery Method Nasal Cannula 04/05/24 07:45 Oxygen Flow Rate 1 04/05/24 07:45 Pain Level 5 04/04/24 21:22 Comment MD aware of SpO2 04/04/24 17:10 Intake & Output 04/04/24 04/05/24 04/05/24 23:59 11:59 23:59 Intake Total 360 / 360 Balance 360 / 360 Weight 52.951 kg Intake: IV 60 / 60 Oral 300 / 300 Other: Comment per pt voided x1 Data Completed and Pending Labs on day of discharge: Labs from last 24 hours 04/05/24 04/04/24 04/04/24 06:46 19:27 17:25 WBC RBC Hgb Hct MCV MCH MCHC RDW Plt Count MPV Immature Gran % Neutrophils % Lymphocytes % Monocytes % Eosinophils % Basophils % Nucleated RBC % Absolute Neutrophils Absolute Lymphocytes Absolute Monocytes Absolute Eosinophils Absolute Basophils VBG pH VBG pCO2 VBG pO2 VBG HCO3 VBG Total CO2 VBG O2 Saturation VBG Base Excess Sodium Potassium Chloride Carbon Dioxide Anion Gap BUN Creatinine Est GFR (CKD-EPI 2020) Glucose Calcium Magnesium 1.7 L Total Bilirubin AST ALT Alkaline Phosphatase Troponin I Cancelled 36 Total Protein Albumin COVID-19 Source SARS-CoV-2 (PCR) Influenza Type A (PCR) Influenza Type B (PCR) RSV (PCR) 04/04/24 04/04/24 16:38 16:32 WBC 13.05 H RBC 4.85 Hgb 14.1 Hct 42.2 MCV 87 MCH 29.1 MCHC 33.4 RDW 13.4 Plt Count 331 MPV 9.1 Immature Gran % 0.9 Neutrophils % 68.9 Lymphocytes % 25.1 Monocytes % 4.7 Eosinophils % 0.2 Basophils % 0.2 Nucleated RBC % 0.0 Absolute Neutrophils 8.99 H Absolute Lymphocytes 3.28 Absolute Monocytes 0.61 Absolute Eosinophils 0.03 Absolute Basophils 0.03 VBG pH 7.41 VBG pCO2 48 VBG pO2 41 VBG HCO3 31 H VBG Total CO2 27 VBG O2 Saturation 75 VBG Base Excess 6 H Sodium 137 Potassium 4.1 Chloride 99 Carbon Dioxide 33.3 H Anion Gap 4.7 BUN 9 Creatinine 0.7 Est GFR (CKD-EPI 2020) 102.71 Glucose 98 Calcium 9.6 Magnesium 1.2 L Total Bilirubin 0.53 AST 26 ALT 93 H Alkaline Phosphatase 65 Troponin I 22 Total Protein 7.4 Albumin 3.4 COVID-19 Source NASOPHARYNX SARS-CoV-2 (PCR) Negative Influenza Type A (PCR) Negative Influenza Type B (PCR) Negative RSV (PCR) Negative PFSH All Active Problems (Updated 04/05/24 @ 13:51 by Tess Fried NP) Acute hypoxic respiratory failure (Acute) Discharge planning issues (Acute) Acute hypoxic respiratory failure (Acute) On deep vein thrombosis (DVT) prophylaxis (Acute) Hypomagnesemia (Acute) Influenza A (Acute) Nicotine dependence (Acute) Medical History Acute hypoxic respiratory failure Arthritis Surgical History History of section History of cholecystectomy Social History Smoking/Tobacco Use Status: Current every day Tobacco Type: cigarettes Smoking packs per day: 1.5 Smoking cigarettes per day: 30.0 Years smoked: 30 Smoking pack-years: 45.00 Tobacco: How many years used: 30 Smoking risk assessment performed?: Yes Alcohol Intake: never Drug use: Never Housing: house Do you feel safe at home: Yes Do you feel safe in your relationship?: Yes Time Spent with Patient Time Spent with Patient: 45-69 minutes Time was spent: preparing to see the patient(eg.review tests), obtaining and/or reviewing separately otained hiistory, ordering medications,tests, procedures, indepentently interpreting results and counseling the patient
[2024-04-05] MEDS: Azithromycin 250 MG TAB PO (14:46)
--- NOTE | 2024-04-05 18:43 | CMDISCH_ITS ---
Date of service: 04/05/24 Time of Service: 18:43 LACE Index Scoring Tool Questions: Length of Stay (in days): 1 Was the patient admitted via the E.D.?: Yes Comorbidities: Chronic Pulmonary Disease E.D. Visits: 2 Answers: Total Score: 8 Risk of Readmission: Low Risk Care Management Discharge Plan Reason for Hospitalization: COPD exacerbation Discharge Plan: Ellen will be discharged with a resumption of home health services for PT. She will follow up with her community providers and plan of care and transport with family. Patient/Family Education Needs: review of discharge instructions, limitations, discuss Ask Me Three Services Needed at Discharge: Home Health Care Services SDOH Health Related Social Needs: 2 Health related social needs housing instability, house d, with risk of homelessness (Z59.811), feeling lonely/isolated (Z60.8)
== END 2024-04-05 14:51 | disposition home or self-care (01) | DRG 193 ==
LOC: ER 19:59 → MS 21:34
PROVIDERS: Admitting Provider General Practice; Emergency Provider Emergency Medicine; PCP Internal Medicine; Visit Provider General Practice
DX: J10.1 Influenza due to other identified influenza virus with other respiratory manifestations (principal); J96.01 Acute respiratory failure with hypoxia; F17.210 Nicotine dependence, cigarettes, uncomplicated; E83.42 Hypomagnesemia; J44.9 Chronic obstructive pulmonary disease, unspecified
CPT/HCPCS: 00123; 36415; 80053; 82805; 87637; 93005; 94640; 94761; 96365; 99291; 71046; 83735; 84484; 85025; 93010; 94760; 99222; 99239; J2919; J3475; J7613; J7620

== ENCOUNTER 2024-05-27 01:58 | Outpatient (CLI) | payer MEDICAID, SELFPAY ==
[2024-05-27] MEDS: Inhaler, Assist Device 1 EACH MC (14:20)
[2024-05-27] MEDS: Levalbuterol HFA 15 GM INH 4 PUFF IH (14:21)
--- NOTE | 2024-06-02 14:31 | W.PFT ---
Date of service: 05/27/24 Time of Service: 12:57 Pulmonary Function Test Result Indications: Emphysema Interpretation Spirometry: Severe airflow limitation. Significant bronchodilator response. Lung Volumes: Hyperinflation and air trapping Diffusion Capacity: Reduced diffusion Airway Pressure: Increased airways resistance Impression Severe airflow obstruction with air trapping and a reduced diffusion. Clinical Correlation therefore is recommended.
== END 2024-05-27 01:59 | disposition home or self-care (01) ==
LOC: RT 01:58
PROVIDERS: PCP Internal Medicine; Visit Provider Student in an Organized Health Care Education/Training Program
DX: J43.9 Emphysema, unspecified (principal); Z87.891 Personal history of nicotine dependence
CPT/HCPCS: 94060; 94726; 94729; 94762

== ENCOUNTER 2024-08-15 00:45 | Outpatient (CLI) | payer MEDICAID, SELFPAY ==
--- NOTE | 2024-08-15 14:58 | DI.CTLCSR_ITS ---
Exam(s) CT CHEST LUNG CANCER SCREEN EXAM: CT CHEST LUNG CANCER SCREEN CLINICAL HISTORY: Screening for lung cancer,FORMER TOBACCO USE,Z87.891 TECHNIQUE: Imaging Protocol: Axial computed tomography images with coronal and sagittal reformatted images were created and reviewed. Lung Computer Aided Detection (CAD) was utilized. COMPARISON: CT CT CHEST WO from 06/28/[address] CHEST PE CTA from 08/24/2023 FINDINGS: Tracheobronchial tree: Patent where visualized. No bronchiectasis. Pulmonary parenchyma: No consolidation or dominant measurable mass. Moderate centrilobular emphysemat ous changes are present. Lung Nodules: None. Mediastinum and [place]: No dominant adenopathy or fluid collection. The esophagus is unremarkable. Thyroid gland: Unremarkable. Lymph nodes: Unremarkable. Pleura: No effusion or pneumothorax. Heart: The heart is not dilated. No coronary artery calcifications are seen. No pericardial effusion . Aorta: Thoracic aorta non-dilated.Mild atherosclerotic calcification is present. Upper abdomen: Unremarkable. Soft Tissues: There again seen bilateral breast implants. The right implant is again seen to be sukhdev apsed. The left implant is intact. Bones: Within normal limits. There is an old T8 compression fracture deformity. There is also an old T5 compression deformity. IMPRESSION: No suspicious pulmonary nodules. Lung RADS Cat 1 - Negative: No nodules and definitely benign nodules Lung-RADS 1.0 CATEGORIES: Category 0 - Prior chest CT exam(s) being located for comparison. Category 1 - Annual screening in 12 months. No nodules or definitely benign nodules. Category 2 - Annual screening in 12 months. Benign appearance. Nodules with low likelihood of becomin g active cancer. Category 3 - 6-month follow-up. Probably benign. Short-term follow-up suggested. Nodules with low lik elihood of becoming active cancer. Category 4A - 3-month follow-up and CT/PET if >8 mm in size. Suspicious finding. Findings which requi re additional testing. Category 4B - Findings which require additional testing and tissue sampling. Suspicious finding. Category 4X - Category 3 or 4 nodules with additional features or imaging findings that increases the suspicion of malignancy. Modifier S- Potentially clinically significant finding. (Non lung cancer) RADIATION DOSE DELIVERED: 23.75mGy.cm Total DLP 23.75mGy.cmTotal DLP DATA REPOSITORY: All CT scans at this facility are submitted to the National Radiology Data Registry (NRDR) Dose Index Registry (DIR) with the [employer] ([employer]). RADIATION OPTIMIZATION: All CT scans at this facility use at least one of these dose optimization te chniques: automated exposure control; mA and/or kV adjustment per patient size (includes targeted exa ms where dose is matched to clinical indication); or iterative reconstruction.
== END 2024-08-15 01:05 ==
LOC: DI 00:46
PROVIDERS: PCP Internal Medicine; Visit Provider Physician Assistant Surgical
DX: Z87.891 Personal history of nicotine dependence (principal); Z12.2 Encounter for screening for malignant neoplasm of respiratory organs
CPT/HCPCS: 71271

== ENCOUNTER 2025-02-27 16:59 | Outpatient (REF) | payer MEDICAID, SELFPAY ==
[2025-02-27 19:11] LABS: HCT 37.2 % (36.0-46.0); HGB 12.3 g/dL (11.2-15.7); MCH 29.0 pg (27.0-33.0); MCHC 33.1 % (32.0-36.0); MCV 88 fL (80-95); MPV 9.3 fL (8.0-11.0); Platelet Count 260 10^3/uL (130-400); RBC 4.24 10^6/uL (3.93-5.22); RDW 13.7 % (11.7-14.6); RDW-SD 44.0 fL; WBC 9.49 10^3/uL (4.4-10.8)
[2025-02-27 19:38] LABS: TSH (W/Ref FT4) 0.80 uIU/mL (0.55-4.78); Vitamin D 25 Total 31 ng/mL (30-100)
[2025-02-27 19:40] LABS: Hemoglobin A1C 5.9 % (<5.7)
[2025-02-27 19:44] LABS: ALT 15 U/L (10-49); AST 18 U/L (<34); Albumin 4.3 g/dL (3.2-5.0); Alkaline Phosphatase 77 U/L (46-116); Anion Gap 9.6 mmol/L (3-11); BUN 9 mg/dL (9-23); Bilirubin, Total 0.3 mg/dL (0.2-1.2); CO2 29.4 mmol/L (20.0-31.0); Calcium 9.0 mg/dL (8.3-10.6); Chloride 102 mmol/L (98-107); Cholesterol 176 mg/dL (<200); Glucose 75 mg/dL (74-106); HDL Cholesterol 72 mg/dL (>or=50); Potassium 4.0 mmol/L (3.5-5.1); Sodium 141 mmol/L (136-145); Total Protein 6.4 g/dL (5.7-8.2)
== END 2025-02-27 17:00 | disposition home or self-care (01) ==
LOC: NCHCN 16:59
PROVIDERS: PCP Internal Medicine; Visit Provider Nurse Practitioner
DX: F41.9 Anxiety disorder, unspecified (principal)
CPT/HCPCS: 80053; 80061; 82306; 85027; 83036; 84443